=== PATIENT | female | born 1960 | race Caucasian/White ===

== ENCOUNTER 2021-10-06 11:03 | Day surgery (SDC) | payer OTHER ==
[2021-10-01 15:26] VITALS: BMI 50.5
[~2021-10-06 11:03] MED LIST: ALPRAZolam 0.25 MG TAB PO PRN; ALPRAZolam 0.5 MG TAB PO PRN; ASPIRIN 325 MG TAB PO ONE; ATORVASTATIN 80 MG TAB PO ONE; HEPARIN SODIUM,PORCINE 10,000 UNIT in SODIUM CHLORIDE 0.9% 1,000 ML IRRIGATION PRN; HEPARIN SODIUM,PORCINE 2,500 UNIT in SODIUM CHLORIDE 0.9% 250 ML IRRIGATION PRN; NITROGLYCERIN SL TABS 0.4 MG TAB SUBLINGUAL PRN; SODIUM CHLORIDE 0.9% 1,000 ML in EMPTY BAG 1 BAG IV SCH
[2021-10-06] MEDS ORDERED: SODIUM CHLORIDE 0.9% 1,000 ML IV ONE (11:22)
[2021-10-06] MEDS ORDERED: LIDOCAINE 1% INJ 10MG/ML (20 ML MDV) ONE (11:56)
[2021-10-06] MEDS ORDERED: VERAPAMIL 2.5 MG/ML 2 ML AMP ONE (11:56)
[2021-10-06 12:13] VITALS: TEMP 98.5
[2021-10-06] MEDS ORDERED: MIDAZOLAM 2 MG/2 ML VIAL IV ONE (12:13)
[2021-10-06] MEDS ORDERED: fentaNYL (PF) 50 MCG/ML 5 ML AMP IV ONE (12:13)
[2021-10-06] MEDS ORDERED: LIDOCAINE 1% INJ 10MG/ML (20 ML MDV) SQ ONE (12:15)
[2021-10-06] MEDS ORDERED: VERAPAMIL SYRINGE (5 MG/10 ML) INTRAARTER ONE (12:16)
[2021-10-06] MEDS ORDERED: HEPARIN SODIUM 1,000 UN/ML (10ML VL) ONE (12:18)
[2021-10-06] MEDS ORDERED: HEPARIN SODIUM 1,000 UN/ML (10ML VL) IV ONE (12:20)
[2021-10-06] MEDS ORDERED: IOPAMIDOL-370 125ML BTL INJ ONE (12:32)
--- NOTE | 2021-10-06 12:39 | P.CARDCATH ---
Description of Procedure: PROCEDURES PERFORMED: Left heart catheterization, bilateral coronary angiography INDICATION: Mild cardiomyopathy, abnormal stress test HISTORY: Patient is a pleasant 60-year-old female with a history of hypertension, hyperlipidemia, strong family history of coronary artery disease, persistent atrial fibrillation who was having significant dyspnea. This however improved after stopping smoking and starting to use of CPAP. She did have workup with a Lexiscan stress test where there was a soft attenuation artifact of the anterior wall as well as inferior basilar wall concerning for breast and diaphragmatic attenuation artifact however did have decrease in ejection fraction to 45%. Given decrease in EF as well as 6 perfusion defects and strong family history with risk factors a heart catheterization was recommended that she was still having significant dyspnea on exertion. CONSENT:I have discussed the risks, benefits and alternative therapies for the above-mentioned procedure and for both sedation/analgesia as well as necessary blood product administration, if indicated, as they pertain to this patient. The patient has indicated understanding and acceptance of the risks and procedures discussed. PROCEDURE: After the risks, benefits and alternatives of the above mentioned procedure explained in detail with the patient, informed consent was obtained. Patient was taken to the catheterization lab and prepped and draped in usual fashion. 1% lidocaine was used to anesthetize the right radial artery. A 6-Chinese sheath was placed in the right radial artery using modified Seldinger technique. Left coronary angiography was performed with a 5-Chinese JL 3.5 catheter and right coronary angiography was performed with a 5-Chinese JR5 catheter in various views. A 5-Chinese FR5 catheter was inserted into the left ventricle and pressure measurements were obtained. The right radial sheath was removed and a TR band was placed with hemostasis achieved. The patient tolerated the procedure well. Patient was transported back to the post catheterization holding area in stable condition. Conscious Sedation: Patient was monitored under the direct supervision of vision of myself for conscious sedation using Versed and fentanyl for a total duration of 18 minutes HEMODYNAMICS: Aorta: 126/79 LV: 115/15, LVEDP 22 mmHg SELECTIVE CORONARY ARTERIOGRAPHY: LEFT MAIN: The left main is a large caliber vessel which bifurcates into the LAD and circumflex. There is no significant stenosis. LEFT ANTERIOR DESCENDING CORONARY ARTERY: LAD is a large caliber vessel which wraps around to the apex. There are mild luminal irregularities with up to 10- 20% stenosis. LEFT CIRCUMFLEX CORONARY ARTERY: Left circumflex is a large caliber vessel with mild luminal irregularities and a more focal mid circumflex 50% stenosis. RIGHT CORONARY ARTERY: The right coronary artery is a large caliber vessel which gives off a PDA and PLV branch and is the dominant vessel. There are mild luminal irregularities. FINAL IMPRESSION: 1. CAD as described above with mild luminal irregularities and a more focal 50% mid circumflex stenosis 2. Elevated left sided filling pressures 3. Mild tachycardia noted throughout procedure PLAN: 1. Aggressive risk factor modification per most recent ACC/AHA guidelines. 2. Patient does have a 50% circumflex stenosis however does not appear to be hemodynamically significant and stress test normal in this area. Recommend continuing to treat this medically. She is having significant dyspnea and elevated LVEDP and therefore we will increase her diuretics to twice a day and have her follow-up in office within one week.
[2021-10-06 18:49] VITALS: RESP 16
[2021-10-06 18:57] VITALS: BP 135/69; PULSE 98
== END 2021-10-06 15:52 | disposition home or self-care (01) ==
LOC: CATHCVL 11:03
PROVIDERS: ATTEND Internal Medicine
DX: I25.10 Atherosclerotic heart disease of native coronary artery without angina pectoris (principal); I10 Essential (primary) hypertension; I48.19 Other persistent atrial fibrillation; E78.5 Hyperlipidemia, unspecified; R94.39 Abnormal result of other cardiovascular function study; Z82.49 Family history of ischemic heart disease and other diseases of the circulatory system; Z87.891 Personal history of nicotine dependence; Z79.01 Long term (current) use of anticoagulants; Z79.890 Hormone replacement therapy; Z79.52 Long term (current) use of systemic steroids; Z79.899 Other long term (current) drug therapy; Z88.5 Allergy status to narcotic agent; Z88.0 Allergy status to penicillin; Z88.2 Allergy status to sulfonamides
CPT/HCPCS: 93458; C1894; J2250; J2001; J3010; J1644; Q9967

== ENCOUNTER 2022-09-05 16:34 | Observation (INO) | payer OTHER ==
[2022-09-05] MEDS ORDERED: ONDANSETRON 4 MG/2 ML VIAL IVP STA (17:00)
[2022-09-05] MEDS ORDERED: HYDROcodone/APAP 5-325MG 1 EACH TAB PO STA (17:01)
--- NOTE | 2022-09-05 17:08 | ED ---
Chest Pain HPI - General Chief Complaint: Chest Pain Stated Complaint: Chest Pain Time Seen by Provider: 09/05/22 16:43 Source: patient, EMS Mode of arrival: EMS Limitations: no limitations - History of Present Illness Initial Comments: This patient is a 61-year-old woman who presents to have evaluation for substernal chest pain. The patient states she has been having weeks of intermittent pains. She states that they are knifelike. They have been moderate in intensity however tonight they were severe and that's what caused her to come emergency department. The pains radiate to the back sometimes. She states that today they have been associated with nausea. Today's pains of been present since she woke up intermittently. She states that they will last a variable. Time for minutes to hours. She states she does climb stairs in her home to get to her bedroom and does not note the pain getting worse with that. No dyspnea, diaphoresis, palpitations or syncope. No change in urination. Patient states she has had looser stools going back for weeks now. MD Complaint: chest pain -: week(s) Onset: during rest Pain Location: substernal Pain Radiation: back Severity: severe Quality: sharp Consistency: intermittent Improves With: nothing Worsens With: nothing Anginal Symptoms: nausea Treatments Prior to Arrival: none - Related Data Home Medications Medication Instructions Recorded Confirmed Apixaban [Eliquis] 5 mg PO BID 10/01/21 09/05/22 Atorvastatin [Lipitor] 20 mg PO HS 10/01/21 09/05/22 FLUoxetine HCL [PROzac] 40 mg PO DAILY 10/01/21 09/05/22 Levothyroxine Sodium [Synthroid] 137 mcg PO DAILY 10/01/21 09/05/22 Metoprolol Succinate (ER) [Toprol 200 mg PO DAILY 10/01/21 09/05/22 Xl] Omeprazole 20 mg PO DAILY 10/01/21 09/05/22 Spironolactone 25 mg PO DAILY 10/01/21 09/05/22 Albuterol Sulfate [Albuterol 2 puff PO RT-Q6H PRN 09/05/22 09/05/22 Sulfate Hfa] Furosemide [Lasix] 40 mg PO DAILY 09/05/22 09/05/22 Losartan Potassium [Cozaar] 100 mg PO DAILY 09/05/22 09/05/22 Potassium Citrate [Potassium 10 meq PO DAILY 09/05/22 09/05/22 Citrate ER] busPIRone HCl [Buspar] 10 mg PO BID 09/05/22 09/05/22 dilTIAZem HCL [dilTIAZem HCL 24Hr 360 mg PO DAILY 09/05/22 09/05/22 ER] Allergies Allergy/AdvReac Type Severity Reaction Status Date / Time morphine Allergy Anaphylaxis Verified 10/06/21 11:23 Penicillins Allergy Nausea & Verified 10/06/21 11:23 Vomiting Review of Systems ROS Statement: Those systems with pertinent positive or pertinent negative responses have been documented in the HPI. ROS Other: All systems not noted in ROS Statement are negative. Constitutional: Reports: weakness. Denies: fever, chills Respiratory: Denies: cough, dyspnea, wheezes Cardiovascular: Reports: chest pain. Denies: palpitations, orthopnea, edema, syncope Gastrointestinal: Reports: nausea, diarrhea. Denies: abdominal pain, vomiting, constipation, melena, hematochezia Genitourinary: Denies: dysuria, hematuria Musculoskeletal: Denies: back pain Skin: Denies: rash Neurological: Denies: headache, weakness, numbness EKG Findings - EKG Results: EKG: interpreted by ITZEL, normal axis EKG shows: atrial fibrillation (Rate approximate 40 bpm) - Blocks, [place], Hypertrophy, ST Abn: QRS axis and voltage: low voltage (<0.5 MV total QRS and <1.0 MV in each precordial lead) - RI, Pacemaker, Normal: Myocardial infarction: septal RI (old age or indeterminate) Past Medical History Past Medical History: Atrial Fibrillation, Cancer, COPD, GERD/Reflux, Hyperlipidemia, Hypertension, Sleep Apnea/CPAP/BIPAP, Thyroid Disorder Additional Past Medical History / Comment(s): O2 use 24hrs per day, 3L/NC during the day, 6L at night. Hx left breast cancer 4 yrs ago treated with Chemo/Radiation and partial Mastectomy. NO BLOOD PRESSURES/LAB DRAWS ON LEFT ARM. Hx kidney stones. Hx kidney failure after Hysterectomy, no problems since. History of Any Multi-Drug Resistant Organisms: None Reported Past Surgical History: Cholecystectomy, Hysterectomy Additional Past Surgical History / Comment(s): Left partial mastectomy and lymph nodes removed, D&C's, Radioactive Iodine Treatment for Thyroid. Past Anesthesia/Blood Transfusion Reactions: Postoperative Nausea & Vomiting (PONV) Past Psychological History: Anxiety, Depression Smoking Status: Former smoker Past Alcohol Use History: Rare Past Drug Use History: None Reported - Past Family History Mother Family Medical History: Cancer Father Family Medical History: Cancer Brother(s) Family Medical History: Cancer General Exam Limitations: no limitations General appearance: alert, in no apparent distress Head exam: Present: atraumatic, normocephalic Eye exam: Present: normal appearance. Absent: scleral icterus, conjunctival injection Neck exam: Present: normal inspection Respiratory exam: Present: wheezes (Trace expiratory wheeze). Absent: respiratory distress, rales, rhonchi, stridor, accessory muscle use, decreased breath sounds Cardiovascular Exam: Present: bradycardia, irregular rhythm, normal heart sounds. Absent: systolic murmur, diastolic murmur, rubs, gallop GI/Abdominal exam: Present: soft. Absent: distended, tenderness, guarding, rebound, rigid, mass Extremities exam: Present: normal inspection, normal capillary refill. Absent: pedal edema, calf tenderness Back exam: Present: normal inspection. Absent: CVA tenderness (R), CVA tenderness (L) Neurological exam: Present: alert Skin exam: Present: warm, dry, intact, normal color. Absent: rash Course Vital Signs 09/05/22 09/05/22 16:36 16:50 Temperature 97.5 F L Pulse Rate 44 L Pulse Rate [ 39 L Selling Specialist ] Respiratory 20 Rate Blood Pressure 108/63 O2 Sat by Pulse 100 Oximetry Disposition Clinical Impression: Anemia, Symptomatic bradycardia Disposition: ADMITTED IP TO THIS HOSP Condition: Fair Referrals: Pancho Berg DO [Primary Care Provider] - 1-2 days
[2022-09-05 17:30] LABS: Basophils % (A) 0 %; Eosinophils # (A) 0.1 k/uL (0-0.7); Eosinophils % (A) 0 %; HCT 26.7 % (34.0-46.0); HGB 7.4 gm/dL (11.4-16.0); Hypochromasia Marked; Lymphocytes # (A) 0.7 k/uL (1.0-4.8); Lymphocytes % (A) 5 %; MCH 25.4 pg (25.0-35.0); MCHC 27.7 g/dL (31.0-37.0); MCV 91.5 fL (80.0-100.0); Mean Platelet Volume 7.7; Monocytes # (A) 0.5 k/uL (0-1.0); Monocytes % (A) 4 %; Neutrophils # (A) 11.9 k/uL (1.3-7.7); Neutrophils % (A) 89 %; Platelet Count 561 k/uL (150-450); RBC 2.91 m/uL (3.80-5.40); RDW 15.6 % (11.5-15.5); WBC 13.3 k/uL (3.8-10.6)
[2022-09-05 17:42] LABS: Albumin 3.5 g/dL (3.5-5.0); Calcium 7.7 mg/dL (8.4-10.2); Potassium 4.3 mmol/L (3.5-5.1); Total Bilirubin 0.4 mg/dL (0.2-1.3); Total Protein 5.4 g/dL (6.3-8.2)
[2022-09-05 17:54] LABS: Partial Thromboplastin Time 22.3 sec (22.0-30.0); Prothrombin Time 10.8 sec (9.0-12.0)
--- NOTE | 2022-09-05 17:55 | XR ---
EXAMINATION TYPE: XR chest 2V DATE OF EXAM: 09/05/2022 COMPARISON: NONE HISTORY: Chest pain TECHNIQUE: Frontal and lateral views of the chest are obtained. FINDINGS: The heart is moderately to markedly enlarged. There is mild pulmonary vascular congestion. There is no airspace edema. There is no pleural effusion or pneumothorax. The osseous structures are intact. IMPRESSION: Findings most consistent with mild CHF. Clinical correlation and short-term follow-up to resolution i s recommended.
[2022-09-05] MEDS ORDERED: ALBUTEROL NEBULIZED 2.5 MG/3 ML INHALATION STA (18:22)
[2022-09-05] MEDS ORDERED: NALOXONE 0.4 MG/ML 1 ML VIAL IV PRN (18:24)
[2022-09-05] MEDS: NITROGLYCERIN OINT 1 INCH/GM PACKET TOPICAL SCH (20:14)
[2022-09-05] MEDS: ATORVASTATIN 20 MG TAB PO SCH (20:14)
[2022-09-05] MEDS: APIXABAN 5 MG TAB PO SCH (20:15)
[2022-09-05] MEDS: FAMOTIDINE 20 MG TAB PO SCH (20:15)
[2022-09-05] MEDS: busPIRone HCl 10 MG TAB PO SCH (20:15)
[2022-09-05 21:15] LABS: Amorphous Sediment,Urine Occasional /hpf; Appearance,Urine Cloudy (Clear); Bilirubin,Urine 1+ (Negative); Blood,Urine Negative (Negative); Color,Urine Yellow; Glucose,Urine (UA) Negative (Negative); Hyaline Casts,Urine 239 /lpf (0-2); Ketones,Urine Trace (Negative); Leukocyte Esterase,Urine Negative (Negative); Mucus,Urine Few /hpf; Nitrite,Urine Negative (Negative); PH, Urine 5.5 (5.0-8.0); Protein,Urine 2+ (Negative); RBC,Urine 2 /hpf (0-5); Specific Gravity,Urine 1.033 (1.001-1.035); Squamous Epithelial Cell,Urine 6 /hpf (0-4); WBC,Urine 4 /hpf (0-5)
[2022-09-05] MEDS: ALBUTEROL NEBULIZED 2.5 MG/3 ML INHALATION PRN (21:32)
[2022-09-05] MEDS: ACETAMINOPHEN TAB 325 MG TAB PO PRN (22:24)
[2022-09-06] MEDS: LEVOTHYROXINE 137 MCG TAB PO SCH (07:03)
[2022-09-06] MEDS: NITROGLYCERIN OINT 1 INCH/GM PACKET TOPICAL SCH (07:03)
[2022-09-06] MEDS: LOSARTAN 50 MG TAB PO SCH (08:11)
[2022-09-06] MEDS: FLUoxetine HCL 20 MG CAP PO SCH (08:11)
[2022-09-06] MEDS: APIXABAN 5 MG TAB PO SCH (08:11)
[2022-09-06] MEDS: SPIRONOLACTONE 25 MG TAB PO SCH (08:11)
[2022-09-06] MEDS: PANTOPRAZOLE 40 MG TABLET PO SCH (08:12)
[2022-09-06] MEDS: POTASSIUM CITRATE 10 MEQ TABLET.ER PO SCH (08:12)
[2022-09-06] MEDS: FAMOTIDINE 20 MG TAB PO SCH ×2 (08:12→20:47)
[2022-09-06] MEDS: FUROSEMIDE 40 MG TAB PO SCH (08:12)
[2022-09-06] MEDS: busPIRone HCl 10 MG TAB PO SCH ×2 (08:12→20:46)
[2022-09-06] MEDS ORDERED: ALPRAZolam 0.25 MG TAB PO PRN (09:11)
[2022-09-06] MEDS ORDERED: NITROGLYCERIN SL TABS 0.4 MG TAB SUBLINGUAL PRN (09:11)
[2022-09-06] MEDS ORDERED: ASPIRIN 325 MG TAB PO STA (09:11)
[2022-09-06] MEDS ORDERED: HEPARIN SODIUM 1,000 UN/ML (10ML VL) IV PRN (09:12)
[2022-09-06] MEDS: HEPARIN SOD,PORK IN 0.45% NACL 25,000 UNIT in 0.45% NACL 1 250ML.BAG IV SCH (09:51)
[2022-09-06] MEDS: ALBUTEROL NEBULIZED 2.5 MG/3 ML INHALATION PRN (11:22)
--- NOTE | 2022-09-06 12:06 | P.CRDCN ---
History of Present Illness History of present illness: HISTORY OF PRESENTING ILLNESS This is a pleasant 61-year-old female past medical history significant for mild to moderate coronary artery disease, COPD, congestive heart failure, nonischemic cardiomyopathy, persistent atrial fibrillation, sick sinus syndrome, hypertension, dyslipidemia, former smoker, obstructive sleep apnea, hypothyroidism. She follows in the office with Dr. Sharp. We have been asked to see in consultation for bradycardia. She presents to the ER with multiple complaints. She has been having nausea, diarrhea, not feeling well, and dizziness. Yesterday she was going to the bathroom having a bowel movement and had an episode where she thinks she briefly passed out. She checked her pulse ox at home and noticed her HR being 180s and then down to the 40s. She has been noticing her heart rate fluctuating over the past few weeks. She noticed increased dizziness yesterday. Over the past 1-2 weeks, she has noticed chest pain, especially when going up the stairs or exerting her self. She has radiation to her bilateral arms. It comes and goes. She does notice it more when doing activity, but has had it when lying and sittin gas well. She did have some discomfort last night as well. She has associated shortness of breath, nausea and diaphoresis with the chest discomfort. Currently she is chest pain free. She has no history of KS, stroke, or diabetes. She recently quit smoking cigarettes, does use marijuana occasionally. Denies alcohol use In February 2022, she followed up with Dr. Sharp, her digoxin was discontinued and Toprol XL dose adjusted. She underwent a Holter monitor 07/2022 revealed atrial fibrillation with heart rates ranging from 48-114 beats per minutes, average heart rate is 77 beats per minutes. DIAGNOSTICS * EKG reveals atrial fibrillation with slow ventricular response, heart rate 40 * Cardiac catheterization 09/2021 revealed LAD 1020 percent stenosis, mid circumflex 50% stenosis * Echocardiogram 12/2021 at [facility] revealed EF 4550 percent, moderate diffuse atheromatous plaque * Holter monitor 07/2022 revealed atrial fibrillation with heart rates ranging from 48-114 beats per minutes, average heart rate is 77 beats per minutes. * Telemetry tracings indicate atrial fibrillation with heart rates in the 50s70s * Chest xray moderate to marked enlarged heart, mild pulmonary asked her congestion. * Laboratory reviewed, CBC 13.3, hemoglobin 7.4, platelets 561, sodium 142, potassium 4.3, BUN 21, serum creatinine 0.9, troponin negative 3, proBNP 1540 * Current home cardiac medications include spironolactone 25 mg daily, potassium citrate, atorvastatin 20 mg nightly, metoprolol succinate 20 mg daily, losartan 20 mg daily, Synthroid, Lasix 40 mg daily, Cardizem 360 mg daily, Eliquis 5 mg twice a day. REVIEW OF SYSTEMS At the time of my exam: CONSTITUTIONAL: Denies fever or chills. +dizziness CARDIOVASCULAR: + chest pain, +shortness of breath, Denies orthopnea, PND or palpitations. RESPIRATORY: Denies cough. GASTROINTESTINAL: Denies abdominal pain,+ diarrhea, Denies constipation, nausea or vomiting. MUSCULOSKELETAL: Denies myalgias. NEUROLOGIC: Denies numbness, tingling, headache or weakness. ENDOCRINE: Denies fatigue, weight change, polydipsia or polyurina. GENITOURINARY: Denies burning, hematuria or urgency with micturation. HEMATOLOGIC: Denies history of anemia or bleeding. PHYSICAL EXAMINATION Blood pressure 143/81, HR 66, afebrile, oxygen saturation 99% on 3 L nasal cannula CONSTITUTIONAL: No apparent distress. HEENT: Head is normocephalic. Pupils are equal, round. Sclerae anicteric. Mucous membranes of the mouth are moist. No JVD. No carotid bruit. CHEST EXAMINATION: Lungs are clear to auscultation. No chest wall tenderness is noted on palpation or with deep breathing. HEART EXAMINATION: Irregular rate and rhythm. S1, S2 heard. No murmurs, gallops or rub. ABDOMEN: Soft, nontender. Positive bowel sounds. EXTREMITIES: 2+ peripheral pulses, no lower extremity edema and no calf tenderness. NEUROLOGIC EXAMINATION: Patient is awake, alert and oriented x3. ASSESSMENT Chest discomfort, with exertion, rule out unstable angina Dizziness Possible syncopal episode per patient while having a bowel movement Nausea and diarrhea Persistent atrial fibrillation, on Eliquis outpatient, slow ventricular response, rule out tachy-katharina syndrome COPD Leukocytosis Anemia Chronic heart failure with preserved ejection fraction History of nonischemic cardiomyopathy History of hypertension Dyslipidemia Former smoker Obstructive sleep apnea Hypothyroidism PLAN Plan for cardiac catheterization tomorrow with Dr. Mejias, patient is agreeable Hold Eliquis, start IV heparin drip Hold Metoprolol and Cardizem Monitor renal function, electrolytes and hemoglobin Monitor on Telemetry Obtain 2D echocardiogram and doppler study to assess cardiac structure and function. Continue home medications statin, lasix, losartan, aldactone at this time NPO after midnight Further recommendations based on clinical course Discussed with Dr Sharp regarding possible attempt at rhythm control and cardioversion however patient states she had 3 failed cardioversions and does not desire to try this again at this time. Nurse practitioner note has been reviewed by physician. Signing provider agrees with the documented findings, assessment, and plan of care. Past Medical History Past Medical History: Atrial Fibrillation, Cancer, COPD, GERD/Reflux, Hyperlipidemia, Hypertension, Sleep Apnea/CPAP/BIPAP, Thyroid Disorder Additional Past Medical History / Comment(s): O2 use 24hrs per day, 3L/NC during the day, 6L at night. Hx left breast cancer 4 yrs ago treated with Chemo/Radiation and partial Mastectomy. NO BLOOD PRESSURES/LAB DRAWS ON LEFT ARM. Hx kidney stones. Hx kidney failure after Hysterectomy, no problems since. History of Any Multi-Drug Resistant Organisms: None Reported Past Surgical History: Cholecystectomy, Hysterectomy Additional Past Surgical History / Comment(s): Left partial mastectomy and lymph nodes removed, D&C's, Radioactive Iodine Treatment for Thyroid. Past Anesthesia/Blood Transfusion Reactions: Postoperative Nausea & Vomiting (PONV) Past Psychological History: Anxiety, Depression Additional Psychological History / Comment(s): Panic attacks. Smoking Status: Former smoker Past Alcohol Use History: Rare Additional Past Alcohol Use History / Comment(s): Quit smoking 3 weeks ago, smoked for 40 yrs, 1-09/01 ppd. Past Drug Use History: None Reported Additional Drug Use History / Comment(s): Uses Marijuana edibles. Aware no use 24 hrs prior to procedure. - Past Family History Mother Family Medical History: Cancer Father Family Medical History: Cancer Brother(s) Family Medical History: Cancer Medications and Allergies Home Medications Medication Instructions Recorded Confirmed Type Apixaban [Eliquis] 5 mg PO BID 10/01/21 09/05/22 History Atorvastatin [Lipitor] 20 mg PO HS 10/01/21 09/05/22 History FLUoxetine HCL [PROzac] 40 mg PO DAILY 10/01/21 09/05/22 History Levothyroxine Sodium [Synthroid] 137 mcg PO DAILY 10/01/21 09/05/22 History Metoprolol Succinate (ER) [Toprol 200 mg PO DAILY 10/01/21 09/05/22 History Xl] Omeprazole 20 mg PO DAILY 10/01/21 09/05/22 History Spironolactone 25 mg PO DAILY 10/01/21 09/05/22 History Albuterol Sulfate [Albuterol 2 puff PO RT-Q6H PRN 09/05/22 09/05/22 History Sulfate Hfa] Furosemide [Lasix] 40 mg PO DAILY 09/05/22 09/05/22 History Losartan Potassium [Cozaar] 100 mg PO DAILY 09/05/22 09/05/22 History Potassium Citrate [Potassium 10 meq PO DAILY 09/05/22 09/05/22 History Citrate ER] busPIRone HCl [Buspar] 10 mg PO BID 09/05/22 09/05/22 History dilTIAZem HCL [dilTIAZem HCL 24Hr 360 mg PO DAILY 09/05/22 09/05/22 History ER] Allergies Allergy/AdvReac Type Severity Reaction Status Date / Time morphine Allergy Anaphylaxis Verified 10/06/21 11:23 Penicillins Allergy Nausea & Verified 10/06/21 11:23 Vomiting Physical Exam Vitals: Vital Signs Temp Pulse Pulse Resp BP BP Pulse Ox 09/06/22 04:34 97.9 F 67 20 120/81 100 09/06/22 02:17 53 L 09/06/22 01:00 98.0 F 87 22 125/98 99 09/05/22 22:52 53 L 09/05/22 21:47 97.7 F 53 L 18 103/54 97 09/05/22 21:43 50 L 09/05/22 21:33 48 L 09/05/22 18:51 97.7 F 53 L 18 103/54 97 09/05/22 16:50 39 L 09/05/22 16:36 97.5 F L 44 L 20 108/63 100 Intake and Output 09/05/22 09/06/22 09/06/22 22:59 06:59 14:59 Intake Total 765 Balance 765 Intake: Intake, IV Titration 225 Amount Sodium Chloride 0.9% 1, 225 000 ml @ 75 mls/hr IV . [id number] [facility] Rx#:[id number] Oral 540 Other: Voiding Method Toilet Toilet # Voids 2 Weight 145.15 kg Results 09/06/22 15:03 09/05/22 17:03 Cardiac Enzymes 09/05/22 09/05/22 09/05/22 Range/Units 17:03 17:03 20:31 AST 32 (14-36) U/L Troponin I <0.012 <0.012 (0.000-0.034) ng/mL 09/05/22 Range/Units 23:23 AST (14-36) U/L Troponin I <0.012 (0.000-0.034) ng/mL Coagulation 09/05/22 Range/Units 17:03 PT 10.8 (9.0-12.0) sec APTT 22.3 (22.0-30.0) sec CBC 09/05/22 Range/Units 17:03 WBC 13.3 H (3.8-10.6) k/uL RBC 2.91 L (3.80-5.40) m/uL Hgb 7.4 L (11.4-16.0) gm/dL Hct 26.7 L (34.0-46.0) % Plt Count 561 H (150-450) k/uL Comprehensive Metabolic Panel 09/05/22 Range/Units 17:03 Sodium 142 (137-145) mmol/L Potassium 4.3 (3.5-5.1) mmol/L Chloride 110 H (98-107) mmol/L Carbon Dioxide 24 (22-30) mmol/L BUN 21 H (7-17) mg/dL Creatinine 0.98 (0.52-1.04) mg/dL Glucose 142 H (74-99) mg/dL Calcium 7.7 L (8.4-10.2) mg/dL AST 32 (14-36) U/L ALT 25 (4-34) U/L Alkaline Phosphatase 90 (38-126) U/L Total Protein 5.4 L (6.3-8.2) g/dL Albumin 3.5 (3.5-5.0) g/dL Current Medications Generic Name Dose Route Start Last Admin Trade Name Freq PRN Reason Stop Dose Admin Acetaminophen 650 mg 09/05/22 18:24 09/05/22 22:24 Acetaminophen Tab 325 Mg Tab PO 650 mg Q6HR PRN Administration Mild Pain or Fever > 100.5 Albuterol Sulfate 2.5 mg 09/05/22 18:27 09/05/22 21:32 Albuterol Nebulized 2.5 Mg/3 Ml INHALATION 2.5 mg RT-Q6H PRN Administration Shortness Of Breath Apixaban 5 mg 09/05/22 21:00 09/05/22 20:15 Apixaban 5 Mg Tab PO 5 mg BID [facility] Administration Protocol Atorvastatin Calcium 20 mg 09/05/22 21:00 09/05/22 20:14 Atorvastatin 20 Mg Tab PO 20 mg HS [facility] Administration Buspirone HCl 10 mg 09/05/22 21:00 09/05/22 20:15 Buspirone Hcl 10 Mg Tab PO 10 mg BID [facility] Administration Famotidine 20 mg 09/05/22 21:00 09/05/22 20:15 Famotidine 20 Mg Tab PO 20 mg BID [facility] Administration Fluoxetine HCl 40 mg 09/06/22 09:00 Fluoxetine Hcl 20 Mg Cap PO DAILY [facility] Furosemide 40 mg 09/06/22 09:00 Furosemide 40 Mg Tab PO DAILY [facility] Sodium Chloride 1,000 mls @ 75 mls/hr 09/05/22 18:30 Saline 0.9% IV .[id number] [facility] Levothyroxine Sodium 137 mcg 09/06/22 07:30 09/06/22 07:03 Levothyroxine 137 Mcg Tab PO 137 mcg DAILY@0730 [facility] Administration Losartan Potassium 100 mg 09/06/22 09:00 Losartan 50 Mg Tab PO DAILY [facility] Naloxone HCl 0.2 mg 09/05/22 18:24 Naloxone 0.4 Mg/Ml 1 Ml Vial IV Q2M PRN Opioid Reversal Nitroglycerin 1 inch 09/05/22 20:00 09/06/22 07:03 Nitroglycerin Oint 1 Inch/Gm Packet TOPICAL Not Given Q8H [facility] Pantoprazole Sodium 40 mg 09/06/22 09:00 Pantoprazole 40 Mg Tablet PO DAILY [facility] Potassium Citrate 10 meq 09/06/22 09:00 Potassium Citrate 10 Meq Tablet.Er PO DAILY [facility] Spironolactone 25 mg 09/06/22 09:00 Spironolactone 25 Mg Tab PO DAILY [facility] Intake and Output 09/05/22 09/06/22 09/06/22 22:59 06:59 14:59 Intake Total 765 Balance 765 Intake: Intake, IV Titration 225 Amount Sodium Chloride 0.9% 1, 225 000 ml @ 75 mls/hr IV . [id number] [facility] Rx#:[id number] Oral 540 Other: Voiding Method Toilet Toilet # Voids 2 Weight 145.15 kg 09/05/22 17:03 09/05/22 17:03
--- NOTE | 2022-09-06 13:57 | P.HPIM ---
History of Present Illness H&P Date: 09/06/22 Chief Complaint: Past out This is a pleasant 61-year-old patient follows Dr. Berg. Chronic stable medical conditions include atrial fibrillation, COPD, GERD, hyperlipidemia, hypertension, obstructive sleep apnea uses CPAP, hypothyroid, uses 3 L of oxygen during the daytime and 6 L at night, had breast cancer 4 years ago treated with chemoradiation and partial mastectomy, kidney stones, anxiety depression. Patient been a long-standing smoker and quit about 9 months ago started back a few cigarettes a day recently. Patient presents with episodes of heart rate going anywhere from 180s down to 40s. Yesterday when she was sitting on the toilet become very diaphoretic and then passed out not sure for how long. Was leaning against the wall. Has been feeling weak for 3-4 weeks. No fever no chills. Short of breath. Some wheezing. Review of systems: GEN.: Tired EYES: None HEENT: None NECK: None RESPIRATORY: As above CARDIOVASCULAR: As above GASTROINTESTINAL: None GENITOURINARY: None MUSCULOSKELETAL: None LYMPHATICS: None HEMATOLOGICAL: None PSYCHIATRY: Anxious NEUROLOGICAL: None Past medical history to include: Atrial fibrillation, COPD, GERD, hyperlipidemia, hypertension, after sleep apnea uses CPAP, hypothyroid, oxygen 3 history the daytime is 6 L at night, breast cancer 4 years ago with treated with chemoradiation and partial mastectomy, kidn ey stones, anxiety depression Social history: Patient smoked for about 40 years back and a half a day average, he stopped 9 months ago not back to few cigarettes a day. Was using marijuana and abuse up in about a month ago for a pain started feeling weird, then discontinued. Physical examination: VITAL SIGNS: 97.5, 44, 20, 100 x 63, 100% on 3 L upon presentation] GENERAL: BMI 51.6, sitting up in bed awake, short of breath. EYES: Pupils equal. Conjunctiva normal. HEENT: External appearance of nose and ears normal, oral cavity grossly normal. NECK: JVD not raised; masses not palpable. HEART: First and second heart sounds are normal; no edema. LUNGS: Respiratory rate increased, diminished breath sounds of increasing. ABDOMEN: Soft, nontender, liver spleen not palpable, no masses palpable. PSYCH: Alert and oriented x3; mood and affect normal. MUSCULOSKELETAL:No Clubbing/cyanosis;muscles-grossly intact NEUROLOGICAL: Cranial nerves grossly intact; no facial asymmetry, power and sensation grossly intact. LYMPHATICS: No lymph nodes palpable in the axilla and neck INVESTIGATIONS, reviewed in the clinical context: White count 13.3 lm 7.4 platelets 561 sodium 142 progression 4.3. 21 crit 0.98 Troponin I 3 negative ProBNP 1540 Stool occult blood negative EKG tracing personally reviewed by me-atrial fibrillation, rate 40, low volume Chest x-ray film personally reviewed by me: Cardiomegaly, possible venous prominence Assessment and plan: -Possible Acute congestive heart failure exacerbation, rule out underlying CAD Lasix. Cardiology consult - atrial fibrillation with a very variable heart rate. Heart rate is been up to 140s down to 40s. Resulting in syncope. Telemetry. Hold Toprol-XL and Cardizem. Patient may need pacemaker -Acute COPD exacerbation in a current smoker DuoNeb, nebulized Pulmicort -Nicotine dependence, smoker Nicotine patch -Morbid obesity, BMI 51.6 Consult dietitian -Essential hypertension Currently Toprol and Cardizem air. Follow blood pressure closely. On Cozaar -IV heparin monitoring, follow PTT -Depression Prozac, BuSpar -Hypothyroid Synthroid -GERD PPI IV heparin. DC Toprol-XL and Cardizem. Resume home medications. Consult dietitian. Telemetry. Consult currently. Nothing by mouth after midnight for cardiac catheterization, 2-D echo, nicotine patch, DuoNeb, nebulized Pulmicort care was discussed with the patient. Questions answered. Smoke cessation counseling: This was done with the patient. Nicotine patch is being given. More than 3 minutes was spent for this Past Medical History Past Medical History: Atrial Fibrillation, Cancer, COPD, GERD/Reflux, Hyperli pidemia, Hypertension, Sleep Apnea/CPAP/BIPAP, Thyroid Disorder Additional Past Medical History / Comment(s): O2 use 24hrs per day, 3L/NC during the day, 6L at night. Hx left breast cancer 4 yrs ago treated with Chemo/Radiation and partial Mastectomy. NO BLOOD PRESSURES/LAB DRAWS ON LEFT ARM. Hx kidney stones. Hx kidney failure after Hysterectomy, no problems since. History of Any Multi-Drug Resistant Organisms: None Reported Past Surgical History: Cholecystectomy, Hysterectomy Additional Past Surgical History / Comment(s): Left partial mastectomy and lymph nodes removed, D&C's, Radioactive Iodine Treatment for Thyroid. Past Anesthesia/Blood Transfusion Reactions: Postoperative Nausea & Vomiting (PONV) Past Psychological History: Anxiety, Depression Additional Psychological History / Comment(s): Panic attacks. Smoking Status: Former smoker Past Alcohol Use History: Rare Additional Past Alcohol Use History / Comment(s): Quit smoking 3 weeks ago, smoked for 40 yrs, 1-09/01 ppd. Past Drug Use History: None Reported Additional Drug Use History / Comment(s): Uses Marijuana edibles. Aware no use 24 hrs prior to procedure. - Past Family History Mother Family Medical History: Cancer Father Family Medical History: Cancer Brother(s) Family Medical History: Cancer Medications and Allergies Home Medications Medication Instructions Recorded Confirmed Type Apixaban [Eliquis] 5 mg PO BID 10/01/21 09/05/22 History Atorvastatin [Lipitor] 20 mg PO HS 10/01/21 09/05/22 History FLUoxetine HCL [PROzac] 40 mg PO DAILY 10/01/21 09/05/22 History Levothyroxine Sodium [Synthroid] 137 mcg PO DAILY 10/01/21 09/05/22 History Metoprolol Succinate (ER) [Toprol 200 mg PO DAILY 10/01/21 09/05/22 History Xl] Omeprazole 20 mg PO DAILY 10/01/21 09/05/22 History Spironolactone 25 mg PO DAILY 10/01/21 09/05/22 History Albuterol Sulfate [Albuterol 2 puff PO RT-Q6H PRN 09/05/22 09/05/22 History Sulfate Hfa] Furosemide [Lasix] 40 mg PO DAILY 09/05/22 09/05/22 History Losartan Potassium [Cozaar] 100 mg PO DAILY 09/05/22 09/05/22 History Potassium Citrate [Potassium 10 meq PO DAILY 09/05/22 09/05/22 History Citrate ER] busPIRone HCl [Buspar] 10 mg PO BID 09/05/22 09/05/22 History dilTIAZem HCL [dilTIAZem HCL 24Hr 360 mg PO DAILY 09/05/22 09/05/22 History ER] Allergies Allergy/AdvReac Type Severity Reaction Status Date / Time morphine Allergy Anaphylaxis Verified 10/06/21 11:23 Penicillins Allergy Nausea & Verified 10/06/21 11:23 Vomiting Physical Exam Vitals: Vital Signs Temp Pulse Pulse Resp BP BP Pulse Ox 09/06/22 08:10 97.1 F L 66 20 143/81 99 09/06/22 04:34 97.9 F 67 20 120/81 100 09/06/22 02:17 53 L 09/06/22 01:00 98.0 F 87 22 125/98 99 09/05/22 22:52 53 L 09/05/22 21:47 97.7 F 53 L 18 103/54 97 09/05/22 21:43 50 L 09/05/22 21:33 48 L 09/05/22 18:51 97.7 F 53 L 18 103/54 97 09/05/22 16:50 39 L 09/05/22 16:36 97.5 F L 44 L 20 108/63 100 Intake and Output 09/05/22 09/06/22 09/06/22 22:59 06:59 14:59 Intake Total 765 0 Output Total 1350 Balance 765 -1350 Intake: Intake, IV Titration 225 Amount Sodium Chloride 0.9% 1, 225 000 ml @ 75 mls/hr IV . [id number] [facility] Rx#:[id number] Oral 540 0 Output: Urine 1350 Other: Voiding Method Toilet Toilet Toilet # Voids 2 Weight 145.15 kg Results CBC & Chem 7: 09/05/22 17:03 09/05/22 17:03 Labs: Abnormal Lab Results - Last 24 Hours (Table) 09/05/22 09/05/22 09/05/22 Range/Units 17:03 17:03 20:28 WBC 13.3 H (3.8-10.6) k/uL RBC 2.91 L (3.80-5.40) m/uL Hgb 7.4 L (11.4-16.0) gm/dL Hct 26.7 L (34.0-46.0) % MCHC 27.7 L (31.0-37.0) g/dL RDW 15.6 H (11.5-15.5) % Plt Count 561 H (150-450) k/uL Neutrophils # 11.9 H (1.3-7.7) k/uL Lymphocytes # 0.7 L (1.0-4.8) k/uL Chloride 110 H (98-107) mmol/L BUN 21 H (7-17) mg/dL Glucose 142 H (74-99) mg/dL Calcium 7.7 L (8.4-10.2) mg/dL Total Protein 5.4 L (6.3-8.2) g/dL Urine Appearance Cloudy H (Clear) Urine Protein 2+ H (Negative) Urine Ketones Trace H (Negative) Urine Bilirubin 1+ H (Negative) Ur Squamous Epith Cells 6 H (0-4) /hpf Amorphous Sediment Occasional H (None) /hpf Hyaline Casts 239 H (0-2) /lpf Urine Mucus Few H (None) /hpf Thrombosis Risk Factor Assmnt - Choose All That Apply Any of the Below Risk Factors Present?: Yes Each Factor Represents 1 point: Abnormal pulmonary function (COPD), Hx of IBD, Obesity (BMI >25), Serious lung disease incl. pneumonia (< 1month), Swollen legs (current) Other Risk Factors: Yes Each Risk Factor Represents 2 Points: Age 61-74 years Other congenital or acquired thrombophilia - If yes, enter type in comment: No Thrombosis Risk Factor Assessment Total Risk Factor Score: 7 Thrombosis Risk Factor Assessment Level: High Risk
[2022-09-06 15:17] LABS: Basophils % (A) 0 %; Eosinophils # (A) 0.1 k/uL (0-0.7); Eosinophils % (A) 1 %; HCT 27.2 % (34.0-46.0); HGB 7.6 gm/dL (11.4-16.0); Hypochromasia Marked; Lymphocytes # (A) 1.3 k/uL (1.0-4.8); Lymphocytes % (A) 12 %; MCH 25.5 pg (25.0-35.0); MCHC 27.8 g/dL (31.0-37.0); MCV 91.5 fL (80.0-100.0); Mean Platelet Volume 7.6; Monocytes # (A) 0.6 k/uL (0-1.0); Monocytes % (A) 6 %; Neutrophils # (A) 8.2 k/uL (1.3-7.7); Neutrophils % (A) 78 %; Platelet Count 434 k/uL (150-450); RBC 2.97 m/uL (3.80-5.40); RDW 15.4 % (11.5-15.5); WBC 10.6 k/uL (3.8-10.6)
[2022-09-06] MEDS: BUDESONIDE 1 MG/2 ML NEBU INHALATION SCH ×2 (15:45→20:15)
[2022-09-06] MEDS: ACETAMINOPHEN TAB 325 MG TAB PO PRN (16:06)
[2022-09-06] MEDS: NICOTINE 14MG/24HR PATCH TRANSDERM SCH (16:21)
[2022-09-06] MEDS: IPRATROPIUM-ALBUTEROL 3 ML NEB INHALATION SCH (20:15)
[2022-09-06] MEDS: ATORVASTATIN 20 MG TAB PO SCH (20:46)
[2022-09-06] MEDS: SODIUM CHLORIDE 0.9% 1,000 ML IV SCH ×2 (20:46→20:48)
[2022-09-06] MEDS: ALPRAZolam 0.5 MG TAB PO PRN (20:47)
[2022-09-07] MEDS: HEPARIN SOD,PORK IN 0.45% NACL 25,000 UNIT in 0.45% NACL 1 250ML.BAG IV SCH (04:40)
[2022-09-07] MEDS: SODIUM CHLORIDE 0.9% 1,000 ML IV SCH ×3 (04:43→23:29)
[2022-09-07] MEDS: LEVOTHYROXINE 137 MCG TAB PO SCH (06:51)
[2022-09-07] MEDS ORDERED: HEPARIN SODIUM,PORCINE 2,500 UNIT in SODIUM CHLORIDE 0.9% 250 ML IRRIGATION PRN (07:00)
[2022-09-07] MEDS ORDERED: HEPARIN SODIUM,PORCINE 10,000 UNIT in SODIUM CHLORIDE 0.9% 1,000 ML IRRIGATION PRN (07:00)
[2022-09-07] MEDS ORDERED: ASPIRIN 325 MG TAB PO STA (07:35)
[2022-09-07] MEDS: BUDESONIDE 1 MG/2 ML NEBU INHALATION SCH ×2 (07:40→20:06)
[2022-09-07] MEDS: IPRATROPIUM-ALBUTEROL 3 ML NEB INHALATION SCH ×3 (07:40→20:06)
[2022-09-07] MEDS: MIDAZOLAM 2 MG/2 ML VIAL IV ONE ×2 (08:07→08:11)
[2022-09-07] MEDS: fentaNYL (PF) 50 MCG/ML 2 ML AMP IV ONE ×2 (08:07→08:19)
[2022-09-07] MEDS ORDERED: IV FLUID CONTINUATION 200 ML IV ONE (08:08)
[2022-09-07] MEDS ORDERED: LIDOCAINE 1% INJ 10MG/ML (30 ML VIAL-PF) SQ ONE (08:11)
[2022-09-07] MEDS ORDERED: VERAPAMIL SYRINGE (5 MG/10 ML) INTRAARTER ONE (08:12)
[2022-09-07] MEDS ORDERED: MIDAZOLAM 2 MG/2 ML VIAL IV ONE (08:18)
[2022-09-07] MEDS: HEPARIN SODIUM 1,000 UN/ML (10ML VL) IV ONE ×2 (08:19→08:26)
[2022-09-07] MEDS ORDERED: NITROGLYCERIN 1000MCG/10ML SYRINGE INTRACORON ONE (08:32)
[2022-09-07] MEDS ORDERED: IOPAMIDOL-370 100ML BTL INJ ONE (08:33)
--- NOTE | 2022-09-07 08:41 | P.CARDCATH ---
Description of Procedure: PROCEDURES PERFORMED: Bilateral coronary angiography INDICATION: CAD, symptomatic bradycardia HISTORY: Patient is pleasant 61-year-old female with history of mild to moderate CAD including a 50% circumflex lesion and atrial fibrillation who presented with A. fib with heart rates in the 40s after medication adjustments. Concern of possible underlying CAD affecting heart rates and therefore heart catheterization was recommended. CONSENT:I have discussed the risks, benefits and alternative therapies for the above-mentioned procedure and for both sedation/analgesia as well as necessary blood product administration, if indicated, as they pertain to this patient. The patient has indicated understanding and acceptance of the risks and procedures discussed. PROCEDURE: After the risks, benefits and alternatives of the above mentioned procedure explained in detail with the patient, informed consent was obtained. Patient was taken to the catheterization lab and prepped and draped in usual fashion. 1% lidocaine was used to anesthetize the right radial artery. A 6- [place] sheath was placed in the right radial artery using modified Seldinger technique. Left coronary angiography was performed with a 6-[place] CLS 3.5 guide catheter and right coronary angiography was performed with a 5-[place] JR5 catheter in various views. Attempted to perform iFR however machine not working properly. Lesion appeared unchanged and therefore procedure ended. The right radial sheath was removed and a TR band was placed with hemostasis achieved. The patient tolerated the procedure well. Patient was transported back to the post catheterization holding area in stable condition. Conscious Sedation: Patient was monitored under the direct supervision of vision of myself for conscious sedation using Versed and fentanyl for a total duration of 26 minutes HEMODYNAMICS: Aorta: 150/96 SELECTIVE CORONARY ARTERIOGRAPHY: LEFT MAIN: The left main is a large caliber vessel which bifurcates into the LAD and circumflex. There is no significant stenosis. LEFT ANTERIOR DESCENDING CORONARY ARTERY: LAD is a large caliber vessel which wraps around to the apex. There are mild luminal irregularities LEFT CIRCUMFLEX CORONARY ARTERY: Left circumflex is a moderate caliber vessel with a focal mid circumflex 50% stenosis and otherwise mild luminal irregularities. RIGHT CORONARY ARTERY: The right coronary artery is a large caliber vessel which gives off a PDA and PLV branch and is the dominant vessel. There are mild luminal irregularities. FINAL IMPRESSION: 1. CAD as described above including 50% circumflex lesion unchanged from prior and otherwise mild luminal irregularities. PLAN: 1. Aggressive risk factor modification per most recent ACC/AHA guidelines. 2. Circumflex lesion appears unchanged from heart catheterization September 2021 and should not be causing bradycardia. Attempted iFR however not working properly. May consider stress testing or repeat heart catheterization with iFR to assess hemodynamic significance of circumflex lesion however appears nonsignificant angiographically.
[2022-09-07] MEDS: SPIRONOLACTONE 25 MG TAB PO SCH (09:27)
[2022-09-07] MEDS: ACETAMINOPHEN TAB 325 MG TAB PO PRN ×2 (09:27→17:28)
[2022-09-07] MEDS: PANTOPRAZOLE 40 MG TABLET PO SCH (09:27)
[2022-09-07] MEDS: FAMOTIDINE 20 MG TAB PO SCH ×2 (09:27→20:52)
[2022-09-07] MEDS: LOSARTAN 50 MG TAB PO SCH (09:27)
[2022-09-07] MEDS: FLUoxetine HCL 20 MG CAP PO SCH (09:27)
[2022-09-07] MEDS: busPIRone HCl 10 MG TAB PO SCH ×2 (09:28→20:52)
[2022-09-07] MEDS: FUROSEMIDE 40 MG TAB PO SCH (09:28)
[2022-09-07] MEDS: NICOTINE 14MG/24HR PATCH TRANSDERM SCH (09:46)
--- NOTE | 2022-09-07 09:54 | P.PN ---
Subjective History of present illness: HISTORY OF PRESENTING ILLNESS This is a pleasant 61-year-old female past medical history significant for mild to moderate coronary artery disease, COPD, congestive heart failure, nonischemic cardiomyopathy, persistent atrial fibrillation, sick sinus syndrome, hypertension, dyslipidemia, former smoker, obstructive sleep apnea, hypothyroidism. She follows in the office with Dr. Sharp. We have been asked to see in consultation for bradycardia. She presents to the ER with multiple complaints. She has been having nausea, diarrhea, not feeling well, and dizziness. Yesterday she was going to the bathroom having a bowel movement and had an episode where she thinks she briefly passed out. She checked her pulse ox at home and noticed her HR being 180s and then down to the 40s. She has been noticing her heart rate fluctuating over the past few weeks. She noticed increased dizziness yesterday. Over the past 1-2 weeks, she has noticed chest pain, especially when going up the stairs or exerting her self. She has radiation to her bilateral arms. It comes and goes. She does notice it more when doing activity, but has had it when lying and sittin gas well. She did have some discomfort last night as well. She has associated shortness of breath, nausea and diaphoresis with the chest discomfort. Currently she is chest pain free. She has no history of ID, stroke, or diabetes. She recently quit smoking cigarettes, does use marijuana occasionally. Denies alcohol use In February 2022, she followed up with Dr. Sharp, her digoxin was discontinued and Toprol XL dose adjusted. She underwent a Holter monitor 07/2022 revealed atrial fibrillation with heart rates ranging from 48-114 beats per minutes, average heart rate is 77 beats per minutes. 09/07 Patient seen and examined. Patient underwent heart catheterization this morning which showed stable CAD with 50% circumflex stenosis. Does not appear significant enough to be causing bradycardia. Patient's metoprolol has been held and heart rates in the 110s to 130s. Restart metoprolol 100 mg daily and if relatively controlled patient may be discharged home tomorrow on event monitor. PHYSICAL EXAMINATION Vitals reviewed CONSTITUTIONAL: No apparent distress. HEENT: Head is normocephalic. Pupils are equal, round. Sclerae anicteric. Mucous membranes of the mouth are moist. No JVD. No carotid bruit. CHEST EXAMINATION: Lungs are clear to auscultation. No chest wall tenderness is noted on palpation or with deep breathing. HEART EXAMINATION: Irregular rate and rhythm. S1, S2 heard. No murmurs, gallops or rub. ABDOMEN: Soft, nontender. Positive bowel sounds. EXTREMITIES: 2+ peripheral pulses, no lower extremity edema and no calf t enderness. NEUROLOGIC EXAMINATION: Patient is awake, alert and oriented x3. ASSESSMENT Chest discomfort, with exertion, rule out unstable angina Dizziness Possible syncopal episode per patient while having a bowel movement Nausea and diarrhea Persistent atrial fibrillation, on Eliquis outpatient, slow ventricular response, rule out tachy-katharina syndrome COPD Leukocytosis Anemia Chronic heart failure with preserved ejection fraction History of nonischemic cardiomyopathy History of hypertension Dyslipidemia Former smoker Obstructive sleep apnea Hypothyroidism PLAN Patient now having A. fib with mild RVR. Restart metoprolol 100 mg daily. Heart catheterization appears stable. Hopeful if heart rates better control discharge home tomorrow on event monitor with outpatient follow-up. Objective - Vital Signs Vital signs: Vital Signs Temp 97.8 F 09/07/22 04:15 Pulse 83 09/07/22 04:15 Resp 17 09/07/22 04:15 BP 148/89 09/07/22 04:15 Pulse Ox 100 09/07/22 04:15 FiO2 Intake & Output 09/06/22 09/07/22 09/07/22 18:59 06:59 18:59 Intake Total 343.637 446.363 100 Output Total 3450 600 Balance -3106.363 -153.637 100 Intake: IV 100 Intake, IV Titration 103.637 446.363 Amount Heparin Sod,Pork in 0.45% 103.637 146.363 NaCl 25,000 unit In 0.45 % NaCl 1 250ml.bag @ 12 UNITS/KG/HR 17.418 mls/hr IV .[id number] [facility] Rx#: [id number] Sodium Chloride 0.9% 1, 300 000 ml @ 75 mls/hr IV . [id number] [facility] Rx#:[id number] Oral 240 Output: Urine 3450 600 Other: Voiding Method Toilet Toilet - Labs CBC & Chem 7: 09/06/22 15:03 09/05/22 17:03 Labs: Abnormal Lab Results - Last 24 Hours (Table) 11/07/22 11/07/22 Range/Units 15:03 15:03 RBC 2.97 L (3.80-5.40) m/uL Hgb 7.6 L (11.4-16.0) gm/dL Hct 27.2 L (34.0-46.0) % MCHC 27.8 L (31.0-37.0) g/dL Neutrophils # 8.2 H (1.3-7.7) k/uL APTT >200.0 H* (22.0-30.0) sec
--- NOTE | 2022-09-07 09:56 | CA ---
Transthoracic Echo Report Name: Ami Burns Age: 61 Gender: F : 1960 Exam Date: 09/06/2022 10:34 Exam Location: [facility] Ht (in): 66 Wt (lb): 320 Ordering Physician: Gracy Grubbs Attending/Referring Phys: Computer Systems Support Specialist Marsha Lopez RDCS Procedure CPT: Indications: chest pain, bradycardia Cardiac Hx: Technical Quality: Good Contrast 1: Lumason Total Dose (mL): 4 Contrast 2: Total Dose (mL): MEASUREMENTS (Male / Female) Normal Values 2D ECHO LV Diastolic Diameter PLAX 5.3 cm 4.2 - 5.9 / 3.9 - 5.3 cm LV Systolic Diameter PLAX 4.0 cm IVS Diastolic Thickness 1.3 cm 0.6 - 1.0 / 0.6 - 0.9 cm LVPW Diastolic Thickness 1.2 cm 0.6 - 1.0 / 0.6 - 0.9 cm LV Relative Wall Thickness 0.5 RV Internal Dim ED PLAX 3.5 cm LA Systolic Diameter LX 4.2 cm 3.0 - 4.0 / 2.7 - 3.8 cm LA Volume 124.2 cm??? 18 - 58 / 22 - 52 cm??? M-MODE Aortic Root Diameter MM 3.6 cm MV E Point Septal Separation 0.4 cm AV Cusp Separation MM 2.5 cm DOPPLER AV Peak Velocity 165.4 cm/s AV Peak Gradient 10.9 mmHg MV Area PHT 3.3 cm??? MV Deceleration Time 276.7 ms TR Peak Velocity 278.8 cm/s TR Peak Gradient 31.1 mmHg Right Ventricular Systolic Press 35.0 mmHg FINDINGS Left Ventricle Left ventricular ejection fraction is estimated at 50-55 %. Mildly increased septal wall thickness. Mildly increased posterior wall thickness. Left ventricular cavity size normal uppear limits Right Ventricle Mild right ventricular dilatation. Mild pulmonary hypertension. Right Atrium Normal right atrial size. Left Atrium Mildly increased left atrial diameter. Severely increased left atrial volume. Moderately increased left atrial area. No evidence for an atrial septal defect. Mitral Valve Structurally normal mitral valve. No mitral stenosis, regurgitation or prolapse. Aortic Valve Trileaflet aortic valve. No aortic valve stenosis or regurgitation. Tricuspid Valve Mild tricuspid regurgitation. Pulmonic Valve Pulmonic valve not well visualized. Pericardium Small pericardial effusion. Aorta Normal size aortic root and proximal ascending aorta. CONCLUSIONS Technically difficult study for interpretation Normal left ventricular dimension and systolic function Previewed by: Dr. Jean Carlos Manjarrez MD (Electronically Signed) Final Date: 07 September 2022 09:56
[2022-09-07] MEDS ORDERED: RX INFO: IV CONTRAST WAS GIVEN 1 EACH MISC MISCELLANE PRN (10:22)
[2022-09-07] MEDS: METOPROLOL SUCCINATE (ER) 100 MG TAB.ER.24H PO SCH (10:31)
[2022-09-07] MEDS: POTASSIUM CITRATE 10 MEQ TABLET.ER PO SCH (10:32)
[2022-09-07 11:05] VITALS: BMI 51.6
--- NOTE | 2022-09-07 15:21 | P.PN ---
Progress Note - Text Progress Note Date: 09/07/22 Chief Complaint: Past out This is a pleasant 61-year-old patient follows Dr. Berg. Chronic stable medical conditions include atrial fibrillation, COPD, GERD, hyperlipidemia, hypertension, obstructive sleep apnea uses CPAP, hypothyroid, uses 3 L of oxygen during the daytime and 6 L at night, had breast cancer 4 years ago treated with chemoradiation and partial mastectomy, kidney stones, anxiety depression. Patient been a long-standing smoker and quit about 9 months ago started back a few cigarettes a day recently. Patient presents with episodes of heart rate going anywhere from 180s down to 40s. Yesterday when she was sitting on the toilet become very diaphoretic and then passed out not sure for how long. Was leaning against the wall. Has been feeling weak for 3-4 weeks. No fever no chills. Short of breath. Some wheezing. 09/07/2022: Cardiac catheterization showed 50% circumflex lesion same as before. Heart rate in the 120s. Started on Toprol-XL 100 mg a today. Utilization services called to inform that happen insurance will only quantify the patient observation. Hence patient be changed to observation. Active Medications Acetaminophen (Acetaminophen Tab 325 Mg Tab) 650 mg PO Q6HR PRN PRN Reason: Mild Pain or Fever > 100.5 Last Admin: 09/07/22 09:27 Dose: 650 mg Albuterol Sulfate (Albuterol Nebulized 2.5 Mg/3 Ml) 2.5 mg INHALATION RT-Q6H PRN PRN Reason: Shortness Of Breath Last Admin: 09/06/22 11:22 Dose: 2.5 mg Albuterol/Ipratropium (Ipratropium-Albuterol 3 Ml Neb) 3 ml INHALATION RT-TID [facility] Last Admin: 09/07/22 10:45 Dose: 3 ml Alprazolam (Alprazolam 0.25 Mg Tab) 0.25 mg PO Q6HR PRN PRN Reason: Mild Anxiety Alprazolam (Alprazolam 0.5 Mg Tab) 0.5 mg PO Q6HR PRN PRN Reason: Moderate Anxiety Last Admin: 09/06/22 20:47 Dose: 0.5 mg Apixaban (Apixaban 5 Mg Tab) 5 mg PO BID [facility]; Protocol Atorvastatin Calcium (Atorvastatin 20 Mg Tab) 20 mg PO HS [facility] Last Admin: 09/06/22 20:46 Dose: 20 mg Budesonide (Budesonide 1 Mg/2 Ml Nebu) 1 mg INHALATION RT-BID [facility] Last Admin: 09/07/22 07:40 Dose: Not Given Buspirone HCl (Buspirone Hcl 10 Mg Tab) 10 mg PO BID [facility] Last Admin: 09/07/22 09:28 Dose: 10 mg Famotidine (Famotidine 20 Mg Tab) 20 mg PO BID [facility] Last Admin: 09/07/22 09:27 Dose: 20 mg Fluoxetine HCl (Fluoxetine Hcl 20 Mg Cap) 40 mg PO DAILY [facility] Last Admin: 09/07/22 09:27 Dose: 40 mg Furosemide (Furosemide 40 Mg Tab) 40 mg PO DAILY [facility] Last Admin: 09/07/22 09:28 Dose: 40 mg Sodium Chloride (Saline 0.9%) 1,000 mls @ 75 mls/hr IV .[id number] [facility] Last Admin: 09/07/22 09:28 Dose: 75 mls/hr Heparin Sodium (Porcine) 10, (000 unit/ Sodium Chloride) 1,001 mls @ 999 mls/hr IRRIGATION ONCE PRN PRN Reason: INTRA-OP Stop: 09/07/22 23:00 Heparin Sodium (Porcine) 2,500 (unit/ Sodium Chloride) 250.5 mls @ 250 mls/hr IRRIGATION ONCE PRN PRN Reason: INTRA-OP Stop: 09/07/22 23:00 Levothyroxine Sodium (Levothyroxine 137 Mcg Tab) 137 mcg PO DAILY@0730 [facility] Last Admin: 09/07/22 06:51 Dose: 137 mcg Losartan Potassium (Losartan 50 Mg Tab) 100 mg PO DAILY [facility] Last Admin: 09/07/22 09:27 Dose: 100 mg Metoprolol Succinate (Metoprolol Succinate (Er) 100 Mg Tab.Er.24h) 100 mg PO DAILY [facility] Last Admin: 09/07/22 10:31 Dose: 100 mg Miscellaneous Information (Rx Info: Iv Contrast Was Given 1 Each Misc) 1 each MISCELLANE DAILY PRN PRN Reason: Per Protocol Stop: 09/09/22 10:22 Naloxone HCl (Naloxone 0.4 Mg/Ml 1 Ml Vial) 0.2 mg IV Q2M PRN PRN Reason: Opioid Reversal Nicotine (Nicotine 14mg/24hr Patch) 1 patch TRANSDERM DAILY [facility] Last Admin: 09/07/22 09:46 Dose: Not Given Nitroglycerin (Nitroglycerin Sl Tabs 0.4 Mg Tab) 0.4 mg SUBLINGUAL Q5M PRN PRN Reason: Chest Pain Pantoprazole Sodium (Pantoprazole 40 Mg Tablet) 40 mg PO DAILY [facility] Last Admin: 09/07/22 09:27 Dose: 40 mg Potassium Citrate (Potassium Citrate 10 Meq Tablet.Er) 10 meq PO DAILY [facility] Last Admin: 09/07/22 10:32 Dose: 10 meq Spironolactone (Spironolactone 25 Mg Tab) 25 mg PO DAILY [facility] Last Admin: 09/07/22 09:27 Dose: 25 mg Past medical history to include: Atrial fibrillation, COPD, GERD, hyperlipidemia, hypertension, after sleep apnea uses CPAP, hypothyroid, oxygen 3 history the daytime is 6 L at night, breast cancer 4 years ago with treated with chemoradiation and partial mastectomy, kidney stones, anxiety depression Social history: Patient smoked for about 40 years back and a half a day average, he stopped 9 months ago not back to few cigarettes a day. Was using marijuana and abuse up in about a month ago for a pain started feeling weird, then discontinued. Physical examination: VITAL SIGNS: 98, 120, 16, 1 55 x 56, 100% on 6 L GENERAL: Sitting up, let short of breath EYES: Pupils equal. Conjunctiva normal. HEENT: External appearance of nose and ears normal, oral cavity grossly normal. NECK: JVD not raised; masses not palpable. HEART: First and second heart sounds are normal; no edema. LUNGS: Respiratory rate increased, diminished breath sounds ABDOMEN: Soft, nontender, liver spleen not palpable, no masses palpable. PSYCH: Alert and oriented x3; mood and affect normal. MUSCULOSKELETAL:No Clubbing/cyanosis;muscles-grossly intact INVESTIGATIONS, reviewed in the clinical context: White count 13.3 lm 7.4 platelets 561 sodium 142 progression 4.3. 21 crit 0.98 Troponin I 3 negative ProBNP 1540 Stool occult blood negative EKG tracing personally reviewed by me-atrial fibrillation, rate 40, low volume Chest x-ray film personally reviewed by me: Cardiomegaly, possible venous prominence Assessment and plan: -Possible Acute congestive heart failure exacerbation, rule out underlying CAD Lasix. Cardiology consult - atrial fibrillation with a very variable heart rate. Heart rate is been up to 140s down to 40s. Resulting in syncope. Telemetry. Hold Cardizem. Resume Toprol-XL 100 mg a day per cardiology today. -Nonobstructive CAD with 50% circumflex lesion -Acute COPD exacerbation in a current smoker DuoNeb, nebulized Pulmicort -Nicotine dependence, smoker Nicotine patch -Morbid obesity, BMI 51.6 Consult dietitian -Essential hypertension Toprol-XL On Cozaar -IV heparin monitoring, follow PTT -Depression Prozac, BuSpar -Hypothyroid Synthroid -GERD PPI Cardiac catheter results noted. Started on Toprol-XL. Other medications to continue. Discussed with patient.
[2022-09-07 15:49] LABS: Basophils % (A) 0 %; Eosinophils # (A) 0.1 k/uL (0-0.7); Eosinophils % (A) 1 %; HCT 26.3 % (34.0-46.0); HGB 7.6 gm/dL (11.4-16.0); Hypochromasia Marked; Lymphocytes # (A) 1.2 k/uL (1.0-4.8); Lymphocytes % (A) 15 %; MCH 26.3 pg (25.0-35.0); MCHC 28.7 g/dL (31.0-37.0); MCV 91.6 fL (80.0-100.0); Mean Platelet Volume 7.2; Monocytes # (A) 0.8 k/uL (0-1.0); Monocytes % (A) 10 %; Neutrophils # (A) 5.8 k/uL (1.3-7.7); Neutrophils % (A) 72 %; Platelet Count 416 k/uL (150-450); RBC 2.88 m/uL (3.80-5.40); RDW 15.3 % (11.5-15.5)
[2022-09-07 16:17] LABS: African American GFR (CKD) >90 (>60 ml/min/1.73 sqM); Anion Gap 5 mmol/L; Blood Urea Nitrogen 16 mg/dL (7-17); Calcium 8.2 mg/dL (8.4-10.2); Carbon Dioxide 32 mmol/L (22-30); Chloride 103 mmol/L (98-107); Glucose 108 mg/dL (74-99); Non-African American GFR(CKD) 79 (>60 ml/min/1.73 sqM); Potassium 4.3 mmol/L (3.5-5.1); Sodium 140 mmol/L (137-145)
[2022-09-07] MEDS: ALPRAZolam 0.5 MG TAB PO PRN (17:28)
[2022-09-07] MEDS: ATORVASTATIN 20 MG TAB PO SCH (20:52)
[2022-09-07] MEDS: APIXABAN 5 MG TAB PO SCH (20:52)
[2022-09-08 01:36] LABS: % Iron Saturation 2.72 (12.00-45.00); Ferritin 10.8 ng/mL (10.0-291.0); Iron 12 ug/dL (50-170); Total Iron Binding Capacity 427 ug/dL (228-460)
[2022-09-08] MEDS: LEVOTHYROXINE 137 MCG TAB PO SCH (06:43)
[2022-09-08] MEDS: APIXABAN 5 MG TAB PO SCH ×2 (07:51→19:48)
[2022-09-08] MEDS: LOSARTAN 50 MG TAB PO SCH (07:52)
[2022-09-08] MEDS: METOPROLOL SUCCINATE (ER) 100 MG TAB.ER.24H PO SCH (07:52)
[2022-09-08] MEDS: SPIRONOLACTONE 25 MG TAB PO SCH (07:52)
[2022-09-08] MEDS: busPIRone HCl 10 MG TAB PO SCH ×2 (07:52→19:48)
[2022-09-08] MEDS: FAMOTIDINE 20 MG TAB PO SCH ×2 (07:52→19:48)
[2022-09-08] MEDS: FUROSEMIDE 40 MG TAB PO SCH (07:52)
[2022-09-08] MEDS: PANTOPRAZOLE 40 MG TABLET PO SCH (07:52)
[2022-09-08] MEDS: POTASSIUM CITRATE 10 MEQ TABLET.ER PO SCH (07:58)
[2022-09-08] MEDS: NICOTINE 14MG/24HR PATCH TRANSDERM SCH (07:58)
[2022-09-08] MEDS: FLUoxetine HCL 20 MG CAP PO SCH (07:58)
[2022-09-08 08:01] LABS: Basophils % (A) 0 %; Eosinophils # (A) 0.1 k/uL (0-0.7); Eosinophils % (A) 1 %; HCT 27.2 % (34.0-46.0); HGB 7.6 gm/dL (11.4-16.0); Hypochromasia Marked; Lymphocytes # (A) 0.9 k/uL (1.0-4.8); Lymphocytes % (A) 13 %; MCH 25.8 pg (25.0-35.0); MCHC 28.1 g/dL (31.0-37.0); MCV 91.9 fL (80.0-100.0); Mean Platelet Volume 7.6; Monocytes # (A) 0.4 k/uL (0-1.0); Monocytes % (A) 6 %; Neutrophils # (A) 5.6 k/uL (1.3-7.7); Neutrophils % (A) 77 %; Platelet Count 406 k/uL (150-450); RBC 2.96 m/uL (3.80-5.40); RDW 15.5 % (11.5-15.5); WBC 7.3 k/uL (3.8-10.6)
[2022-09-08] MEDS: IPRATROPIUM-ALBUTEROL 3 ML NEB INHALATION SCH ×3 (08:06→19:14)
[2022-09-08] MEDS: BUDESONIDE 1 MG/2 ML NEBU INHALATION SCH ×2 (08:06→19:14)
[2022-09-08 08:08] LABS: Calcium 8.1 mg/dL (8.4-10.2); Potassium 4.4 mmol/L (3.5-5.1)
[2022-09-08] MEDS: DILTIAZEM CD 180 MG CAP.ER.24H PO SCH (13:16)
[2022-09-08] MEDS: SODIUM CHLORIDE 0.9% 1,000 ML IV SCH (13:16)
--- NOTE | 2022-09-08 13:18 | P.PN ---
Subjective This is a pleasant 61-year-old female past medical history significant for mild to moderate coronary artery disease, COPD, congestive heart failure, nonischemic cardiomyopathy, persistent atrial fibrillation, sick sinus syndrome, hypertension, dyslipidemia, former smoker, obstructive sleep apnea, hypothyroidism. She follows in the office with Dr. Sharp. We have been asked to see in consultation for bradycardia. She presents to the ER with multiple complaints. She has been having nausea, diarrhea, not feeling well, and dizziness. Yesterday she was going to the bathroom having a bowel movement and had an episode where she thinks she briefly passed out. She checked her pulse ox at home and noticed her HR being 180s and then down to the 40s. She has been noticing her heart rate fluctuating over the past few weeks. She noticed increased dizziness yesterday. Over the past 1-2 weeks, she has noticed chest pain, especially when going up the stairs or exerting her self. She has radiation to her bilateral arms. It comes and goes. She does notice it more when doing activity, but has had it when lying and sittin gas well. She did have some discomfort last night as well. She has associated shortness of breath, nausea and diaphoresis with the chest discomfort. Currently she is chest pain free. She has no history of ID, stroke, or diabetes. She recently quit smoking cigarettes, does use marijuana occasionally. Denies alcohol use In February 2022, she followed up with Dr. Sharp, her digoxin was discontinued and Toprol XL dose adjusted. She underwent a Holter monitor 07/2022 revealed atrial fibrillation with heart rates ranging from 48-114 beats per minutes, average heart rate is 77 beats per minutes. 09/07 Patient underwent heart catheterization which showed stable CAD with 50% circumflex stenosis. Does not appear significant enough to be causing bradycardia. Patient's metoprolol has been held and heart rates in the 110s to 130s. Restarted metoprolol succinate 100 mg daily 09/08 Patient seen and examined at bedside. Overall symptoms have improved, occasional chest discomfort overnight, no specific alleviating or aggravating factors. She is more tachycardic this morning with HR 90s-115. Denies any shortness of breath. BP 125/71. PHYSICAL EXAMINATION Vitals reviewed CONSTITUTIONAL: No apparent distress. HEENT: Head is normocephalic. Pupils are equal, round. Sclerae anicteric. Mucous membranes of the mouth are moist. No JVD. No carotid bruit. CHEST EXAMINATION: Lungs are clear to auscultation. No chest wall tenderness is noted on palpation or with deep breathing. HEART EXAMINATION: Irregular rate and rhythm. S1, S2 heard. No murmurs, gallops or rub. ABDOMEN: Soft, nontender. Positive bowel sounds. EXTREMITIES: 2+ peripheral pulses, no lower extremity edema and no calf tenderness. NEUROLOGIC EXAMINATION: Patient is awake, alert and oriented x3. ASSESSMENT Chest discomfort Status post cardiac catheterization Coronary artery disease with 50% circumflex stenosis unchanged from prior and otherwise mild luminal irregularities. Dizziness Possible syncopal episode per patient while having a bowel movement Nausea and diarrhea Persistent atrial fibrillation, on Eliquis outpatient, slow ventricular respons e, rule out tachy-katharina syndrome COPD Leukocytosis Anemia Chronic heart failure with preserved ejection fraction History of nonischemic cardiomyopathy History of hypertension Dyslipidemia Former smoker Obstructive sleep apnea Hypothyroidism PLAN Patient now having A. fib with mild RVR this afternoon. Metoprolol succinate restarted at 100 mg daily. Will restart Cardizem at 180mg daily Heart catheterization appears stable. Continue Eliquis Increase activity as tolerated Hopeful if no further chest discomfort and heart rates stable and better control discharge home later today with an event monitor with outpatient follow-up. Nurse practitioner note has been reviewed by physician. Signing provider agrees with the documented findings, assessment, and plan of care. Objective - Vital Signs Vital signs: Vital Signs Temp 98.0 F 09/08/22 04:00 Pulse 102 H 09/08/22 08:17 Resp 18 09/08/22 08:07 BP 141/80 09/08/22 07:54 Pulse Ox 100 09/08/22 08:09 FiO2 Intake & Output 09/07/22 09/08/22 09/08/22 18:59 06:59 18:59 Intake Total 1160 600 118 Output Total 1500 400 Balance -340 200 118 Weight 145.15 kg 144 kg Intake: IV 100 Intake, IV Titration 225 600 Amount Sodium Chloride 0.9% 1, 225 600 000 ml @ 75 mls/hr IV . [id number] [facility] Rx#:[id number] Oral 835 118 Output: Urine 1500 400 Other: Voiding Method Toilet Bedside Commode Bedside Commode # Voids 1 - Labs CBC & Chem 7: 09/08/22 07:41 09/08/22 07:41 Labs: Abnormal Lab Results - Last 24 Hours (Table) 09/07/22 09/07/22 09/08/22 Range/Units 15:15 15:15 07:41 RBC 2.88 L 2.96 L (3.80-5.40) m/uL Hgb 7.6 L 7.6 L (11.4-16.0) gm/dL Hct 26.3 L 27.2 L (34.0-46.0) % MCHC 28.7 L 28.1 L (31.0-37.0) g/dL Lymphocytes # 0.9 L (1.0-4.8) k/uL Carbon Dioxide 32 H (22-30) mmol/L Glucose 108 H (74-99) mg/dL Calcium 8.2 L (8.4-10.2) mg/dL Iron 12 L (50-170) ug/dL % Saturation 2.72 L (12.00-45.00) 09/08/22 Range/Units 07:41 RBC (3.80-5.40) m/uL Hgb (11.4-16.0) gm/dL Hct (34.0-46.0) % MCHC (31.0-37.0) g/dL Lymphocytes # (1.0-4.8) k/uL Carbon Dioxide 36 H (22-30) mmol/L Glucose 119 H (74-99) mg/dL Calcium 8.1 L (8.4-10.2) mg/dL Iron (50-170) ug/dL % Saturation (12.00-45.00)
[2022-09-08] MEDS: ACETAMINOPHEN TAB 325 MG TAB PO PRN ×2 (16:16→21:41)
--- NOTE | 2022-09-08 16:50 | P.PN ---
Progress Note - Text Progress Note Date: 09/08/22 Chief Complaint: Past out This is a pleasant 61-year-old patient follows Dr. Berg. Chronic stable medical conditions include atrial fibrillation, COPD, GERD, hyperlipidemia, hypertension, obstructive sleep apnea uses CPAP, hypothyroid, uses 3 L of oxygen during the daytime and 6 L at night, had breast cancer 4 years ago treated with chemoradiation and partial mastectomy, kidney stones, anxiety depression. Patient been a long-standing smoker and quit about 9 months ago started back a few cigarettes a day recently. Patient presents with episodes of heart rate going anywhere from 180s down to 40s. Yesterday when she was sitting on the toilet become very diaphoretic and then passed out not sure for how long. Was leaning against the wall. Has been feeling weak for 3-4 weeks. No fever no chills. Short of breath. Some wheezing. 09/07/2022: Cardiac catheterization showed 50% circumflex lesion same as before. Heart rate in the 120s. Started on Toprol-XL 100 mg a today. Utilization services called to inform that [facility] insurance will only qualify the patient observation. Hence patient be changed to observation. 09/08/2022: Placed on Toprol yesterday. Heart rate up to 120s today. Cardizem CD 180 mg added. Watch telemetry for any drop in heart rate. Discussed with patient. Active Medications Acetaminophen (Acetaminophen Tab 325 Mg Tab) 650 mg PO Q6HR PRN PRN Reason: Mild Pain or Fever > 100.5 Last Admin: 09/08/22 16:16 Dose: 650 mg Albuterol Sulfate (Albuterol Nebulized 2.5 Mg/3 Ml) 2.5 mg INHALATION RT-Q6H PRN PRN Reason: Shortness Of Breath Last Admin: 09/06/22 11:22 Dose: 2.5 mg Albuterol/Ipratropium (Ipratropium-Albuterol 3 Ml Neb) 3 ml INHALATION RT-TID [facility] Last Admin: 09/08/22 11:49 Dose: 3 ml Apixaban (Apixaban 5 Mg Tab) 5 mg PO BID [facility]; Protocol Last Admin: 09/08/22 07:51 Dose: 5 mg Atorvastatin Calcium (Atorvastatin 20 Mg Tab) 20 mg PO HS [facility] Last Admin: 09/07/22 20:52 Dose: 20 mg Budesonide (Budesonide 1 Mg/2 Ml Nebu) 1 mg INHALATION RT-BID [facility] Last Admin: 09/08/22 08:06 Dose: 1 mg Buspirone HCl (Buspirone Hcl 10 Mg Tab) 10 mg PO BID [facility] Last Admin: 09/08/22 07:52 Dose: 10 mg Diltiazem HCl (Diltiazem Cd 180 Mg Cap.Er.24h) 180 mg PO DAILY [facility] Last Admin: 09/08/22 13:16 Dose: 180 mg Famotidine (Famotidine 20 Mg Tab) 20 mg PO BID [facility] Last Admin: 09/08/22 07:52 Dose: 20 mg Fluoxetine HCl (Fluoxetine Hcl 20 Mg Cap) 40 mg PO DAILY [facility] Last Admin: 09/08/22 07:58 Dose: 40 mg Furosemide (Furosemide 40 Mg Tab) 40 mg PO DAILY [facility] Last Admin: 09/08/22 07:52 Dose: 40 mg Sodium Chloride (Saline 0.9%) 1,000 mls @ 75 mls/hr IV .[id number] [facility] Last Admin: 09/08/22 13:16 Dose: 75 mls/hr Levothyroxine Sodium (Levothyroxine 137 Mcg Tab) 137 mcg PO DAILY@0730 [facility] Last Admin: 09/08/22 06:43 Dose: 137 mcg Losartan Potassium (Losartan 50 Mg Tab) 100 mg PO DAILY [facility] Last Admin: 09/08/22 07:52 Dose: 100 mg Metoprolol Succinate (Metoprolol Succinate (Er) 100 Mg Tab.Er.24h) 100 mg PO DAILY [facility] Last Admin: 09/08/22 07:52 Dose: 100 mg Miscellaneous Information (Rx Info: Iv Contrast Was Given 1 Each Misc) 1 each MISCELLANE DAILY PRN PRN Reason: Per Protocol Stop: 09/09/22 10:22 Naloxone HCl (Naloxone 0.4 Mg/Ml 1 Ml Vial) 0.2 mg IV Q2M PRN PRN Reason: Opioid Reversal Nicotine (Nicotine 14mg/24hr Patch) 1 patch TRANSDERM DAILY [facility] Last Admin: 09/08/22 07:58 Dose: Not Given Nitroglycerin (Nitroglycerin Sl Tabs 0.4 Mg Tab) 0.4 mg SUBLINGUAL Q5M PRN PRN Reason: Chest Pain Pantoprazole Sodium (Pantoprazole 40 Mg Tablet) 40 mg PO DAILY [facility] Last Admin: 09/08/22 07:52 Dose: 40 mg Potassium Citrate (Potassium Citrate 10 Meq Tablet.Er) 10 meq PO DAILY [facility] Last Admin: 09/08/22 07:58 Dose: 10 meq Spironolactone (Spironolactone 25 Mg Tab) 25 mg PO DAILY [facility] Last Admin: 09/08/22 07:52 Dose: 25 mg Past medical history to include: Atrial fibrillation, COPD, GERD, hyperlipidemia, hypertension, after sleep apnea uses CPAP, hypothyroid, oxygen 3 history the daytime is 6 L at night, breast cancer 4 years ago with treated with chemoradiation and partial mastectomy, kidney stones, anxiety depression Social history: Patient smoked for about 40 years back and a half a day average, he stopped 9 months ago not back to few cigarettes a day. Was using marijuana and abuse up in about a month ago for a pain started feeling weird, then discontinued. Physical examination: VITAL SIGNS: Afebrile, 120, 18, 1 4180, 100% on 3 L GENERAL: Sitting up, breathing better EYES: Pupils equal. Conjunctiva normal. HEENT: External appearance of nose and ears normal, oral cavity grossly normal. NECK: JVD not raised; masses not palpable. HEART: First and second heart sounds are normal; no edema. LUNGS: Respiratory rate increased, diminished breath sounds ABDOMEN: Soft, nontender, liver spleen not palpable, no masses palpable. PSYCH: Alert and oriented x3; mood and affect normal. MUSCULOSKELETAL:No Clubbing/cyanosis;muscles-grossly intact INVESTIGATIONS, reviewed in the clinical context: 09/08/2022: Total bili 7.3 platelets 7.6 potassium 4.4 creatinine 0.93 I did 12 TIBC 427% saturation 2.7 to transfer 305 ferritin 10.8 White count 13.3 lm 7.4 platelets 561 sodium 142 progression 4.3. 21 crit 0.98 Troponin I 3 negative ProBNP 1540 Stool occult blood negative EKG tracing personally reviewed by me-atrial fibrillation, rate 40, low volume Chest x-ray film personally reviewed by me: Cardiomegaly, possible venous prominence Assessment and plan: -Possible Acute congestive heart failure exacerbation, : Better Lasix. Cardiology consult - atrial fibrillation with a very variable heart rate. Heart rate is been up to 140s down to 40s. Resulting in syncope. On presentation. Telemetry. Cardizem CD 180 mg a day added by cartilage in today.. Toprol-XL 100 mg a day -Nonobstructive CAD with 50% circumflex lesion, per cardiac cath -Acute COPD exacerbation in a current smoker: Better DuoNeb, nebulized Pulmicort -Nicotine dependence, smoker Nicotine patch -Morbid obesity, BMI 51.6 Consult dietitian -Essential hypertension Toprol-XL On Cozaar -IV heparin monitoring, follow PTT -Depression Prozac, BuSpar -Hypothyroid Synthroid -GERD PPI Toprol-XL. A. fib still uncontrolled. Cardizem CD 180 mg added today. Other medications to continue. Follow with cardiology
[2022-09-08] MEDS: ATORVASTATIN 20 MG TAB PO SCH (19:48)
[2022-09-08 20:50] LABS: Glucose,Whole Blood 122 mg/dL (70-110)
[2022-09-08] MEDS: ONDANSETRON 4 MG/2 ML VIAL IVP PRN (20:51)
[2022-09-09] MEDS: SODIUM CHLORIDE 0.9% 1,000 ML IV SCH ×2 (01:50→14:59)
[2022-09-09] MEDS: LEVOTHYROXINE 137 MCG TAB PO SCH (06:03)
[2022-09-09] MEDS: BUDESONIDE 1 MG/2 ML NEBU INHALATION SCH ×2 (07:44→20:04)
[2022-09-09] MEDS: ALBUTEROL NEBULIZED 2.5 MG/3 ML INHALATION PRN (07:44)
[2022-09-09] MEDS: IPRATROPIUM-ALBUTEROL 3 ML NEB INHALATION SCH ×3 (09:07→20:04)
[2022-09-09] MEDS: ONDANSETRON 4 MG/2 ML VIAL IVP PRN ×2 (09:15→18:33)
--- NOTE | 2022-09-09 09:27 | P.PN ---
Subjective This is a pleasant 61-year-old female past medical history significant for mild to moderate coronary artery disease, COPD, congestive heart failure, nonischemic cardiomyopathy, persistent atrial fibrillation, sick sinus syndrome, hypertension, dyslipidemia, former smoker, obstructive sleep apnea, hypothyroidism. She follows in the office with Dr. Sharp. We have been asked to see in consultation for bradycardia. She presents to the ER with multiple complaints. She has been having nausea, diarrhea, not feeling well, and dizziness. Yesterday she was going to the bathroom having a bowel movement and had an episode where she thinks she briefly passed out. She checked her pulse ox at home and noticed her HR being 180s and then down to the 40s. She has been noticing her heart rate fluctuating over the past few weeks. She noticed increased dizziness yesterday. Over the past 1-2 weeks, she has noticed chest pain, especially when going up the stairs or exerting her self. She has radiation to her bilateral arms. It comes and goes. She does notice it more when doing activity, but has had it when lying and sittin gas well. She did have some discomfort last night as well. She has associated shortness of breath, nausea and diaphoresis with the chest discomfort. Currently she is chest pain free. She has no history of [place], stroke, or diabetes. She recently quit smoking cigarettes, does use marijuana occasionally. Denies alcohol use In February 2022, she followed up with Dr. Sharp, her digoxin was discontinued and Toprol XL dose adjusted. She underwent a Holter monitor 07/2022 revealed atrial fibrillation with heart rates ranging from 48-114 beats per minutes, average heart rate is 77 beats per minutes. 09/07 Patient underwent heart catheterization which showed stable CAD with 50% circumflex stenosis. Does not appear significant enough to be causing bradycardia. Patient's metoprolol has been held and heart rates in the 110s to 130s. Restarted metoprolol succinate 100 mg daily 09/08 Patient seen and examined at bedside. Overall symptoms have improved, occasional chest discomfort overnight, no specific alleviating or aggravating factors. She is more tachycardic this morning with HR 90s-115. Denies any shortness of breath. BP 125/71. 09/09 Seen and examined. Cardizem was also added yesterday and heart rates mainly in the 90s to 100. She denies any lightheadedness. Admits to chronic shortness breath however no change. Unfortunately she is more nauseous and having watery type diarrhea this morning. Admits to some mild abdominal pain. PHYSICAL EXAMINATION Vitals reviewed CONSTITUTIONAL: No apparent distress. HEENT: Head is normocephalic. Pupils are equal, round. Sclerae anicteric. Mucous membranes of the mouth are moist. No JVD. No carotid bruit. CHEST EXAMINATION: Lungs are clear to auscultation. No chest wall tenderness is noted on palpation or with deep breathing. HEART EXAMINATION: Irregular rate and rhythm. S1, S2 heard. No murmurs, gallops or rub. ABDOMEN: Soft, nontender. Positive bowel sounds. EXTREMITIES: 2+ peripheral pulses, no lower extremity edema and no calf tenderness. NEUROLOGIC EXAMINATION: Patient is awake, alert and oriented x3. ASSESSMENT Chest discomfort Status post cardiac catheterization with stable CAD Coronary artery disease with 50% circumflex stenosis unchanged from prior and otherwise mild luminal irregularities. Dizziness Possible syncopal episode per patient while having a bowel movement Nausea and diarrhea Persistent atrial fibrillation, on Eliquis outpatient, slow ventricular response, rule out tachy-katharina syndrome COPD Leukocytosis Anemia Chronic heart failure with preserved ejection fraction History of nonischemic cardiomyopathy History of hypertension Dyslipidemia Former smoker Obstructive sleep apnea Hypothyroidism PLAN Heart rates appears predominantly controlled with metoprolol succinate 100 mg daily and Cardizem at 180mg daily Heart catheterization appears stable. Continue Eliquis Increase activity as tolerated Heart rates appear stable and symptom was she appears stable however is having more nausea and diarrhea. Continue current regimen. Hopeful discharge home with outpatient monitor when nausea and diarrhea have improved. Objective - Vital Signs Vital signs: Vital Signs Temp 98.6 F 09/09/22 03:19 Pulse 100 09/09/22 07:54 Resp 18 09/09/22 03:19 BP 109/70 09/09/22 03:19 Pulse Ox 100 09/09/22 07:38 FiO2 Intake & Output 09/08/22 09/09/22 09/09/22 18:59 06:59 18:59 Intake Total 118 Output Total 650 Balance 118 -650 Intake: Oral 118 Output: Urine 600 Emesis 50 Other: Voiding Method Bedside Commode Bedside Commode # Voids 1 # Bowel Movements 0 1 - Labs CBC & Chem 7: 09/08/22 07:41 09/08/22 07:41 Labs: Abnormal Lab Results - Last 24 Hours (Table) 09/08/22 Range/Units 20:49 POC Glucose (mg/dL) 122 H (70-110) mg/dL
[2022-09-09] MEDS: DILTIAZEM CD 180 MG CAP.ER.24H PO SCH (09:54)
[2022-09-09] MEDS: LOSARTAN 50 MG TAB PO SCH (09:54)
[2022-09-09] MEDS: busPIRone HCl 10 MG TAB PO SCH ×2 (09:55→20:38)
[2022-09-09] MEDS: METOPROLOL SUCCINATE (ER) 100 MG TAB.ER.24H PO SCH (09:55)
[2022-09-09] MEDS: POTASSIUM CITRATE 10 MEQ TABLET.ER PO SCH (09:55)
[2022-09-09] MEDS: APIXABAN 5 MG TAB PO SCH ×2 (09:55→20:38)
[2022-09-09] MEDS: FAMOTIDINE 20 MG TAB PO SCH ×2 (09:55→20:38)
[2022-09-09] MEDS: FUROSEMIDE 40 MG TAB PO SCH (09:55)
[2022-09-09] MEDS: FLUoxetine HCL 20 MG CAP PO SCH (09:56)
[2022-09-09] MEDS: SPIRONOLACTONE 25 MG TAB PO SCH (09:56)
[2022-09-09] MEDS: PANTOPRAZOLE 40 MG TABLET PO SCH (09:56)
[2022-09-09] MEDS: NICOTINE 14MG/24HR PATCH TRANSDERM SCH (09:57)
[2022-09-09] MEDS: ACETAMINOPHEN TAB 325 MG TAB PO PRN (12:16)
--- NOTE | 2022-09-09 15:12 | P.PN ---
Progress Note - Text Progress Note Date: 09/09/22 Chief Complaint: Past out This is a pleasant 61-year-old patient follows Dr. Berg. Chronic stable medical conditions include atrial fibrillation, COPD, GERD, hyperlipidemia, hypertension, obstructive sleep apnea uses CPAP, hypothyroid, uses 3 L of oxygen during the daytime and 6 L at night, had breast cancer 4 years ago treated with chemoradiation and partial mastectomy, kidney stones, anxiety depression. Patient been a long-standing smoker and quit about 9 months ago started back a few cigarettes a day recently. Patient presents with episodes of heart rate going anywhere from 180s down to 40s. Yesterday when she was sitting on the toilet become very diaphoretic and then passed out not sure for how long. Was leaning against the wall. Has been feeling weak for 3-4 weeks. No fever no chills. Short of breath. Some wheezing. 09/07/2022: Cardiac catheterization showed 50% circumflex lesion same as before. Heart rate in the 120s. Started on Toprol-XL 100 mg a today. Utilization services called to inform that [facility] insurance will only qualify the patient observation. Hence patient be changed to observation. 09/08/2022: Placed on Toprol yesterday. Heart rate up to 120s today. Cardizem CD 180 mg added. Watch telemetry for any drop in heart rate. Discussed with patient. 09/09/2022: Heart rate around 100. Started having nausea vomiting diarrhea since last night. No bowel pain. Changed to full liquid diet. Stool ordered for C. diff. Active Medications Acetaminophen (Acetaminophen Tab 325 Mg Tab) 650 mg PO Q6HR PRN PRN Reason: Mild Pain or Fever > 100.5 Last Admin: 09/09/22 12:16 Dose: 650 mg Albuterol Sulfate (Albuterol Nebulized 2.5 Mg/3 Ml) 2.5 mg INHALATION RT-Q6H PRN PRN Reason: Shortness Of Breath Last Admin: 09/09/22 07:44 Dose: 2.5 mg Albuterol/Ipratropium (Ipratropium-Albuterol 3 Ml Neb) 3 ml INHALATION RT-TID [facility] Last Admin: 09/09/22 11:18 Dose: 3 ml Apixaban (Apixaban 5 Mg Tab) 5 mg PO BID [facility]; Protocol Last Admin: 09/09/22 09:55 Dose: 5 mg Atorvastatin Calcium (Atorvastatin 20 Mg Tab) 20 mg PO HS [facility] Last Admin: 09/08/22 19:48 Dose: 20 mg Budesonide (Budesonide 1 Mg/2 Ml Nebu) 1 mg INHALATION RT-BID [facility] Last Admin: 09/09/22 07:44 Dose: 1 mg Buspirone HCl (Buspirone Hcl 10 Mg Tab) 10 mg PO BID [facility] Last Admin: 09/09/22 09:55 Dose: 10 mg Diltiazem HCl (Diltiazem Cd 180 Mg Cap.Er.24h) 180 mg PO DAILY [facility] Last Admin: 09/09/22 09:54 Dose: 180 mg Famotidine (Famotidine 20 Mg Tab) 20 mg PO BID [facility] Last Admin: 09/09/22 09:55 Dose: 20 mg Fluoxetine HCl (Fluoxetine Hcl 20 Mg Cap) 40 mg PO DAILY [facility] Last Admin: 09/09/22 09:56 Dose: 40 mg Furosemide (Furosemide 40 Mg Tab) 40 mg PO DAILY [facility] Last Admin: 09/09/22 09:55 Dose: 40 mg Sodium Chloride (Saline 0.9%) 1,000 mls @ 75 mls/hr IV .[id number] [facility] Last Admin: 09/09/22 14:59 Dose: Not Given Levothyroxine Sodium (Levothyroxine 137 Mcg Tab) 137 mcg PO DAILY@0730 [facility] Last Admin: 09/09/22 06:03 Dose: 137 mcg Losartan Potassium (Losartan 50 Mg Tab) 100 mg PO DAILY [facility] Last Admin: 09/09/22 09:54 Dose: 100 mg Metoprolol Succinate (Metoprolol Succinate (Er) 100 Mg Tab.Er.24h) 100 mg PO DAILY [facility] Last Admin: 09/09/22 09:55 Dose: 100 mg Naloxone HCl (Naloxone 0.4 Mg/Ml 1 Ml Vial) 0.2 mg IV Q2M PRN PRN Reason: Opioid Reversal Nicotine (Nicotine 14mg/24hr Patch) 1 patch TRANSDERM DAILY [facility] Last Admin: 09/09/22 09:57 Dose: Not Given Nitroglycerin (Nitroglycerin Sl Tabs 0.4 Mg Tab) 0.4 mg SUBLINGUAL Q5M PRN PRN Reason: Chest Pain Ondansetron HCl (Ondansetron 4 Mg/2 Ml Vial) 4 mg IVP Q8HR PRN PRN Reason: Nausea And Vomiting Last Admin: 09/09/22 09:15 Dose: 4 mg Pantoprazole Sodium (Pantoprazole 40 Mg Tablet) 40 mg PO DAILY [facility] Last Admin: 09/09/22 09:56 Dose: 40 mg Potassium Citrate (Potassium Citrate 10 Meq Tablet.Er) 10 meq PO DAILY [facility] Last Admin: 09/09/22 09:55 Dose: 10 meq Spironolactone (Spironolactone 25 Mg Tab) 25 mg PO DAILY [facility] Last Admin: 09/09/22 09:56 Dose: 25 mg Past medical history to include: Atrial fibrillation, COPD, GERD, hyperlipidemia, hypertension, after sleep apnea uses CPAP, hypothyroid, oxygen 3 history the daytime is 6 L at night, breast cancer 4 years ago with treated with chemoradiation and partial mastectomy, kidney stones, anxiety depression Social history: Patient smoked for about 40 years back and a half a day average, he stopped 9 months ago not back to few cigarettes a day. Was using marijuana and abuse up in about a month ago for a pain started feeling weird, then discontinued. Physical examination: VITAL SIGNS: 96.8, 103, 19, 1 26 x 67, 100% on 3 L GENERAL: Sitting up, tired EYES: Pupils equal. Conjunctiva normal. HEENT: External appearance of nose and ears normal, oral cavity grossly normal. NECK: JVD not raised; masses not palpable. HEART: First and second heart sounds are normal; no edema. LUNGS: Respiratory rate increased, diminished breath sounds ABDOMEN: Soft, nontender, liver spleen not palpable, no masses palpable. PSYCH: Alert and oriented x3; mood and affect normal. MUSCULOSKELETAL:No Clubbing/cyanosis;muscles-grossly intact INVESTIGATIONS, reviewed in the clinical context: 09/08/2022: Total bili 7.3 platelets 7.6 potassium 4.4 creatinine 0.93 I did 12 TIBC 427% saturation 2.7 to transfer 305 ferritin 10.8 White count 13.3 lm 7.4 platelets 561 sodium 142 progression 4.3. 21 crit 0.98 Troponin I 3 negative ProBNP 1540 Stool occult blood negative EKG tracing personally reviewed by me-atrial fibrillation, rate 40, low volume Chest x-ray film personally reviewed by me: Cardiomegaly, possible venous prominence Assessment and plan: -Possible Acute congestive heart failure exacerbation, : Better Lasix. Cardiology consult - atrial fibrillation with a very variable heart rate. Heart rate is been up to 140s down to 40s. Resulting in syncope. On presentation.: Controlled Telemetry. Cardizem CD 180 mg a day . Toprol-XL 100 mg a day -Acute gastroenteritis, could be viral. Rule out C. diff. Change to full liquid diet. -Nonobstructive CAD with 50% circumflex lesion, per cardiac cath -Acute COPD exacerbation in a current smoker: Better DuoNeb, nebulized Pulmicort -Nicotine dependence, smoker Nicotine patch -Morbid obesity, BMI 51.6 Consult dietitian -Essential hypertension Toprol-XL On Cozaar -IV heparin monitoring, follow PTT -Depression Prozac, BuSpar -Hypothyroid Synthroid -GERD PPI Heart rate better controlled. Send out stool for C. diff. Full liquid diet. Other medications to continue.
[2022-09-09] MEDS: ATORVASTATIN 20 MG TAB PO SCH (20:38)
[2022-09-10] MEDS: SODIUM CHLORIDE 0.9% 1,000 ML IV SCH (06:07)
[2022-09-10] MEDS: LEVOTHYROXINE 137 MCG TAB PO SCH (06:07)
[2022-09-10] MEDS: IPRATROPIUM-ALBUTEROL 3 ML NEB INHALATION SCH ×2 (08:03→11:55)
[2022-09-10] MEDS: BUDESONIDE 1 MG/2 ML NEBU INHALATION SCH (08:03)
[2022-09-10 08:34] LABS: Calcium 8.4 mg/dL (8.4-10.2); Potassium 4.3 mmol/L (3.5-5.1)
[2022-09-10] MEDS: FUROSEMIDE 40 MG TAB PO SCH (09:24)
[2022-09-10] MEDS: APIXABAN 5 MG TAB PO SCH (09:24)
[2022-09-10] MEDS: PANTOPRAZOLE 40 MG TABLET PO SCH (09:24)
[2022-09-10] MEDS: LOSARTAN 50 MG TAB PO SCH (09:24)
[2022-09-10] MEDS: METOPROLOL SUCCINATE (ER) 100 MG TAB.ER.24H PO SCH (09:24)
[2022-09-10] MEDS: busPIRone HCl 10 MG TAB PO SCH (09:24)
[2022-09-10] MEDS: SPIRONOLACTONE 25 MG TAB PO SCH (09:24)
[2022-09-10] MEDS: POTASSIUM CITRATE 10 MEQ TABLET.ER PO SCH (09:25)
[2022-09-10] MEDS: FAMOTIDINE 20 MG TAB PO SCH (09:25)
[2022-09-10] MEDS: NICOTINE 14MG/24HR PATCH TRANSDERM SCH (09:25)
[2022-09-10] MEDS: FLUoxetine HCL 20 MG CAP PO SCH (09:25)
[2022-09-10] MEDS: DILTIAZEM CD 180 MG CAP.ER.24H PO SCH (09:25)
[2022-09-10 09:29] VITALS: RESP 18; TEMP 97.9
[2022-09-10 12:42] VITALS: BP 99/56; PULSE 51
--- NOTE | 2022-09-10 15:22 | CDI ---
Documentation Clarification Form Date: 09/10/2022 02:51:47 PM From: Venessa Hodges RN CCDS Admit Date: 09/10/2022 07:34:00 AM Patient Name: Ami Burns Visit Number: [id number] Discharge Date: ATTENTION: The Clinical Documentation Specialists (CDI) and [facility] Coding Staff appreciate your assistance in clarifying documentation. Please respond to the clarification below the line at the bottom and electronically sign. The CDI & [facility] Coding staff will review the response and follow-up if needed. Please note: Queries are made part of the Legal Health Record. If you have any questions, please contact the author of this message via ITS. Dr. Rosas Edgar Conflicting documentation has been found in the medical record. As attending physician, please provide clarification. Possible Acute congestive heart failure, Medicine note, 09/09 Chronic heart failure with preserved ejection fraction, Cardiology note, 09/09 History/Risk Factors: 61-year-old female presents to the ED with episodes for heart rate up to 180s to 40s. The patient has become diaphoretic and passed out not sure for how long. Medical History: Atrial fibrillation, COPD , Sleep apnea and HTN. 09/06, H&P Clinical Indicators: Home Medications: Toprol XL 100mg PO Daily; Lasix 40mg PO Daily VSS, 09/05: B/P 108/63; HR 44; Temp 97.5; RR 20, SpO2 100% CXR, 09/05: Findings most consistent with mild CHF. Echocardiogram, 09/06: EF 50-55% Technically difficulty study for interpretation. Normal left ventricular dimension and systolic function. NT Pro B Natriuret Pep, 09/05: 1540 Treatment: 09/06 Lasix 40mg PO Daily; 09/06 Aldactone 25mg PO Daily; 09/07 Toprol XL 100mg PO Daily Please clarify which diagnosis is most appropriate: [ ] Acute and chronic diastolic heart failure [ ] Chronic diastolic heart failure [ ] Acute diastolic heart failure [ ] Other (please specify) [ ] Unable to determine (Template Last Revised: December 2020) MTDD
--- NOTE | 2022-09-10 17:09 | P.DS ---
Providers Date of admission: 09/05/22 18:24 Expected date of discharge: 09/10/22 Attending physician: Rosas Edgar Consults: 09/05/22 18:24 Consult Physician Routine Consulting Provider: Jaxson Sharp Consult Reason/Comments: symptomatic bradycardia Do you want consulting provider notified?: Yes Primary care physician: Pancho Rader [facility] Course: Chief Complaint: Past out This is a pleasant 61-year-old patient follows Dr. Berg. Chronic stable medical conditions include atrial fibrillation, COPD, GERD, hyperlipidemia, hypertension, obstructive sleep apnea uses CPAP, hypothyroid, uses 3 L of oxygen during the daytime and 6 L at night, had breast cancer 4 years ago treated with chemoradiation and partial mastectomy, kidney stones, anxiety depression. Patient been a long-standing smoker and quit about 9 months ago started back a few cigarettes a day recently. Patient presents with episodes of heart rate going anywhere from 180s down to 40s. Yesterday when she was sitting on the toilet become very diaphoretic and then passed out not sure for how long. Was leaning against the wall. Has been feeling weak for 3-4 weeks. No fever no chills. Short of breath. Some wheezing. 09/07/2022: Cardiac catheterization showed 50% circumflex lesion same as before. Heart rate in the 120s. Started on Toprol-XL 100 mg a today. Utilization services called to inform that [facility] insurance will only qualify the patient observation. Hence patient be changed to observation. 09/08/2022: Placed on Toprol yesterday. Heart rate up to 120s today. Cardizem CD 180 mg added. Watch telemetry for any drop in heart rate. Discussed with patient. 09/09/2022: Heart rate around 100. Started having nausea vomiting diarrhea since last night. No bowel pain. Changed to full liquid diet. Stool ordered for C. diff. 09/10/2022: Nausea vomiting diarrhea or resolved. Tolerated a liquid diet this afternoon. Feeling much better. Heart rate controlled. Discussed with patient. Will DC home. Discussion and discharge planning more than 35 minutes Past medical history to include: Atrial fibrillation, COPD, GERD, hyperlipidemia, hypertension, after sleep apnea uses CPAP, hypothyroid, oxygen 3 history the daytime is 6 L at night, breast cancer 4 years ago with treated with chemoradiation and partial mastectomy, kidney stones, anxiety depression Social history: Patient smoked for about 40 years back and a half a day average, he stopped 9 months ago not back to few cigarettes a day. Was using marijuana and abuse up in about a month ago for a pain started feeling weird, then discontinued. Physical examination: VITAL SIGNS: 97.9, 51, 18, 99.56, 99% on 3 L GENERAL: Sitting up, in chair, comfortable EYES: Pupils equal. Conjunctiva normal. HEENT: External appearance of nose and ears normal, oral cavity grossly normal. NECK: JVD not raised; masses not palpable. HEART: First and second heart sounds are normal; no edema. LUNGS: Respiratory rate normal, diminished breath sounds ABDOMEN: Soft, nontender, liver spleen not palpable, no masses palpable. PSYCH: Alert and oriented x3; mood and affect normal. MUSCULOSKELETAL:No Clubbing/cyanosis;muscles-grossly intact INVESTIGATIONS, reviewed in the clinical context: 2-D echocardiogram: EF 50 and 55%. 09/10/2022: Potassium 4.3 creatinine 0.91 09/08/2022: Total bili 7.3 platelets 7.6 potassium 4.4 creatinine 0.93 I did 12 TIBC 427% saturation 2.7 to transfer 305 ferritin 10.8 White count 13.3 lm 7.4 platelets 561 sodium 142 progression 4.3. 21 crit 0.98 Troponin I 3 negative ProBNP 1540 Stool occult blood negative EKG tracing personally reviewed by me-atrial fibrillation, rate 40, low volume Chest x-ray film personally reviewed by me: Cardiomegaly, possible venous prominence Assessment and plan: -Possible Acute congestive heart failure exacerbation from diastolic dysfunction EF 50-55%, : Better Lasix 40 mg daily. Cardiology consult - atrial fibrillation with a very variable heart rate. Heart rate is been up to 140s down to 40s. Resulting in syncope. On presentation.: Controlled Telemetry. Cardizem CD 180 mg a day . Toprol-XL 100 mg a day -Acute gastroenteritis, could be viral.: Resolved Tolerating diet -Nonobstructive CAD with 50% circumflex lesion, per cardiac cath -Acute COPD exacerbation in a current smoker: Better DC on Symbicort -Nicotine dependence, smoker Nicotine patch -Morbid obesity, BMI 51.6 Consult dietitian -Essential hypertension Toprol-XL On Cozaar. Cardizem CD -IV heparin monitoring, follow PTT -Depression Prozac, BuSpar -Hypothyroid Synthroid -GERD PPI Disposition: Home Plan - Discharge Summary Discharge Rx Participant: Yes New Discharge Prescriptions: New Famotidine [Pepcid] 20 mg PO BID #60 tab Diltiazem Cd [Cardizem CD] 180 mg PO DAILY #30 cap Nicotine 14Mg/24Hr Patch [Habitrol] 1 patch TRANSDERM DAILY #14 patch Budesonide/Formoterol Fumarate [Symbicort 160-4.5 Mcg Inhaler] 1 puff INHALATION BID #10.2 gm Continue FLUoxetine HCL [PROzac] 40 mg PO DAILY Atorvastatin [Lipitor] 20 mg PO HS Levothyroxine Sodium [Synthroid] 137 mcg PO DAILY Losartan Potassium [Cozaar] 100 mg PO DAILY busPIRone HCl [Buspar] 10 mg PO BID Apixaban [Eliquis] 5 mg PO BID Omeprazole 20 mg PO DAILY Potassium Citrate [Potassium Citrate ER] 10 meq PO DAILY Furosemide [Lasix] 40 mg PO DAILY Albuterol Sulfate [Albuterol Sulfate Hfa] 2 puff PO RT-Q6H PRN PRN Reason: Shortness Of Breath Changed Metoprolol Succinate (ER) [Toprol XL] 100 mg PO DAILY #0 Discontinued Spironolactone 25 mg PO DAILY dilTIAZem HCL [dilTIAZem HCL 24Hr ER] 360 mg PO DAILY Discharge Medication List Apixaban [Eliquis] 5 mg PO BID 10/01/21 [History] Atorvastatin [Lipitor] 20 mg PO HS 10/01/21 [History] FLUoxetine HCL [PROzac] 40 mg PO DAILY 10/01/21 [History] Levothyroxine Sodium [Synthroid] 137 mcg PO DAILY 10/01/21 [History] Omeprazole 20 mg PO DAILY 10/01/21 [History] Albuterol Sulfate [Albuterol Sulfate Hfa] 2 puff PO RT-Q6H PRN 09/05/22 [History] Furosemide [Lasix] 40 mg PO DAILY 09/05/22 [History] Losartan Potassium [Cozaar] 100 mg PO DAILY 09/05/22 [History] Potassium Citrate [Potassium Citrate ER] 10 meq PO DAILY 09/05/22 [History] busPIRone HCl [Buspar] 10 mg PO BID 09/05/22 [History] Budesonide/Formoterol Fumarate [Symbicort 160-4.5 Mcg Inhaler] 1 puff INHALATION BID #10.2 gm 09/10/22 [Rx] Diltiazem Cd [Cardizem CD] 180 mg PO DAILY #30 cap 09/10/22 [Rx] Famotidine [Pepcid] 20 mg PO BID #60 tab 09/10/22 [Rx] Metoprolol Succinate (ER) [Toprol XL] 100 mg PO DAILY #0 09/10/22 [Rx] Nicotine 14Mg/24Hr Patch [Habitrol] 1 patch TRANSDERM DAILY #14 patch 09/10/22 [Rx] Follow up Appointment(s)/Referral(s): Jaxson Sharp MD [STAFF PHYSICIAN] - 09/20/22 10:30 am Pancho Berg DO [Primary Care Provider] - 09/16/22 8:00 am Patient Instructions/Handouts: Bradycardia (DC) Discharge Disposition: HOME SELF-CARE
--- NOTE | 2022-09-10 20:51 | P.PN ---
Subjective This is a pleasant 61-year-old female past medical history significant for mild to moderate coronary artery disease, COPD, congestive heart failure, nonischemic cardiomyopathy, persistent atrial fibrillation, sick sinus syndrome, hypertension, dyslipidemia, former smoker, obstructive sleep apnea, hypothyroidism. She follows in the office with Dr. Sharp. We have been asked to see in consultation for bradycardia. She presents to the ER with multiple complaints. She has been having nausea, diarrhea, not feeling well, and dizziness. Yesterday she was going to the bathroom having a bowel movement and had an episode where she thinks she briefly passed out. She checked her pulse ox at home and noticed her HR being 180s and then down to the 40s. She has been noticing her heart rate fluctuating over the past few weeks. She noticed increased dizziness yesterday. Over the past 1-2 weeks, she has noticed chest pain, especially when going up the stairs or exerting her self. She has radiation to her bilateral arms. It comes and goes. She does notice it more when doing activity, but has had it when lying and sittin gas well. She did have some discomfort last night as well. She has associated shortness of breath, nausea and diaphoresis with the chest discomfort. Currently she is chest pain free. She has no history of ID, stroke, or diabetes. She recently quit smoking cigarettes, does use marijuana occasionally. Denies alcohol use In February 2022, she followed up with Dr. Sharp, her digoxin was discontinued and Toprol XL dose adjusted. She underwent a Holter monitor 07/2022 revealed atrial fibrillation with heart rates ranging from 48-114 beats per minutes, average heart rate is 77 beats per minutes. 09/07 Patient underwent heart catheterization which showed stable CAD with 50% circumflex stenosis. Does not appear significant enough to be causing bradycardia. Patient's metoprolol has been held and heart rates in the 110s to 130s. Restarted metoprolol succinate 100 mg daily 09/08 Patient seen and examined at bedside. Overall symptoms have improved, occasional chest discomfort overnight, no specific alleviating or aggravating factors. She is more tachycardic this morning with HR 90s-115. Denies any shortness of breath. BP 125/71. 09/09 Seen and examined. Cardizem was also added yesterday and heart rates mainly in the 90s to 100. She denies any lightheadedness. Admits to chronic shortness breath however no change. Unfortunately she is more nauseous and having watery type diarrhea this morning. Admits to some mild abdominal pain. 09/10 Patient seen and examined. States she feels somewhat better today. Not having any more abdominal pain. PHYSICAL EXAMINATION Vitals reviewed CONSTITUTIONAL: No apparent distress. HEENT: Head is normocephalic. Pupils are equal, round. Sclerae anicteric. Mucous membranes of the mouth are moist. No JVD. No carotid bruit. CHEST EXAMINATION: Lungs are clear to auscultation. No chest wall tenderness is noted on palpation or with deep breathing. HEART EXAMINATION: Irregular rate and rhythm. S1, S2 heard. No murmurs, gallops or rub. ABDOMEN: Soft, nontender. Positive bowel sounds. EXTREMITIES: 2+ peripheral pulses, no lower extremity edema and no calf tenderness. NEUROLOGIC EXAMINATION: Patient is awake, alert and oriented x3. ASSESSMENT Chest discomfort Status post cardiac catheterization with stable CAD Coronary artery disease with 50% circumflex stenosis unchanged from prior and otherwise mild luminal irregularities. Dizziness Possible syncopal episode per patient while having a bowel movement Nausea and diarrhea Persistent atrial fibrillation, on Eliquis outpatient, slow ventricular response, rule out tachy-katharina syndrome COPD Leukocytosis Anemia Chronic heart failure with preserved ejection fraction History of nonischemic cardiomyopathy History of hypertension Dyslipidemia Former smoker Obstructive sleep apnea Hypothyroidism PLAN Heart rates appears predominantly controlled with metoprolol succinate 100 mg daily and Cardizem at 180mg daily Heart catheterization appears stable. Continue Eliquis Appears stable from cardio perspective for DC with outpt followup and outpt monitor. Objective - Vital Signs Vital signs: Vital Signs Temp 97.9 F 09/10/22 12:00 Pulse 51 L 09/10/22 14:00 Resp 18 09/10/22 14:00 BP 99/56 09/10/22 12:00 Pulse Ox 99 09/10/22 12:00 FiO2 Intake & Output 09/10/22 09/10/22 09/11/22 06:59 18:59 06:59 Intake Total 550 118 Balance 550 118 Intake: Oral 550 118 Other: Voiding Method Bedside Commode Bedside Commode # Voids 2 - Labs CBC & Chem 7: 09/08/22 07:41 09/10/22 07:40 Labs: Abnormal Lab Results - Last 24 Hours (Table) 09/10/22 Range/Units 07:40 Carbon Dioxide 33 H (22-30) mmol/L BUN 20 H (7-17) mg/dL
== END 2022-09-10 16:03 | disposition home or self-care (01) ==
LOC: EC 16:34 → INTOOBSV 18:24 → 3SCARD 18:24 → INTOOBSV 09-10 07:34 → OBSVTOIN 09-10 07:34
PROVIDERS: ADMIT Hospitalist; ATTEND Hospitalist
DX: R07.9 Chest pain, unspecified (principal); R00.1 Bradycardia, unspecified; I48.19 Other persistent atrial fibrillation; D64.9 Anemia, unspecified; D72.829 Elevated white blood cell count, unspecified; I25.10 Atherosclerotic heart disease of native coronary artery without angina pectoris; I11.0 Hypertensive heart disease with heart failure; I50.32 Chronic diastolic (congestive) heart failure; R42 Dizziness and giddiness; E78.5 Hyperlipidemia, unspecified; J44.1 Chronic obstructive pulmonary disease with (acute) exacerbation; K21.9 Gastro-esophageal reflux disease without esophagitis; I42.8 Other cardiomyopathies; I49.5 Sick sinus syndrome; J96.11 Chronic respiratory failure with hypoxia; G47.33 Obstructive sleep apnea (adult) (pediatric); F41.9 Anxiety disorder, unspecified; F32.A Depression, unspecified; E03.9 Hypothyroidism, unspecified; Z99.81 Dependence on supplemental oxygen; F17.210 Nicotine dependence, cigarettes, uncomplicated; Z90.10 Acquired absence of unspecified breast and nipple; Z87.442 Personal history of urinary calculi; K52.9 Noninfective gastroenteritis and colitis, unspecified; E66.01 Morbid (severe) obesity due to excess calories; Z68.43 Body mass index [BMI] 50.0-59.9, adult; Z79.01 Long term (current) use of anticoagulants; F41.0 Panic disorder [episodic paroxysmal anxiety]; Z90.710 Acquired absence of both cervix and uterus; Z90.49 Acquired absence of other specified parts of digestive tract; Z98.890 Other specified postprocedural states; Z85.3 Personal history of malignant neoplasm of breast; Z92.21 Personal history of antineoplastic chemotherapy; Z92.3 Personal history of irradiation; Z79.890 Hormone replacement therapy; Z79.899 Other long term (current) drug therapy; Z88.5 Allergy status to narcotic agent; Z88.0 Allergy status to penicillin
CPT/HCPCS: 96376; 96365; 96366; 96375; 99285; 36415; 94640 ×10; 94760 ×3; 93005; 93306; 93270; 93458; 85379; 83880; 80053; 80048 ×3; 82728; 82150; 83540; 83550; 83690; 83735; 84484; 85025 ×4; 85610; 85730 ×2; 82272; 81001; 71046; G0378 ×7; C1769 ×3; C1887; C1894; J2250; J2405 ×3; J2001; J3010; J1644 ×3; Q9950; Q9967

== ENCOUNTER 2022-09-11 16:34 | Inpatient (IN) | payer OTHER ==
[2022-09-11 17:05] LABS: Basophils # (A) 0.1 k/uL (0-0.2); Basophils % (A) 0 %; Eosinophils # (A) 0.2 k/uL (0-0.7); Eosinophils % (A) 2 %; HCT 28.4 % (34.0-46.0); HGB 8.2 gm/dL (11.4-16.0); Hypochromasia Marked; Lymphocytes # (A) 1.3 k/uL (1.0-4.8); Lymphocytes % (A) 12 %; MCH 25.9 pg (25.0-35.0); MCHC 29.1 g/dL (31.0-37.0); MCV 89.1 fL (80.0-100.0); Mean Platelet Volume 7.4; Monocytes # (A) 0.9 k/uL (0-1.0); Monocytes % (A) 8 %; Neutrophils # (A) 8.3 k/uL (1.3-7.7); Neutrophils % (A) 75 %; Platelet Count 551 k/uL (150-450); RBC 3.18 m/uL (3.80-5.40); RDW 15.4 % (11.5-15.5); WBC 11.1 k/uL (3.8-10.6)
--- NOTE | 2022-09-11 17:06 | ED ---
General Adult HPI - General Chief complaint: Arrhythmia/Palpitations Stated complaint: AFIB Time Seen by Provider: 09/11/22 16:44 Source: patient, EMS, RN notes reviewed, old records reviewed Mode of arrival: EMS Limitations: no limitations - History of Present Illness Initial comments: Patient is a 61-year-old female presenting to the emergency room with complaints of palpitations and variable heart rate ranging from 150-180 since being discharged home from the hospital yesterday. She was in the hospital for symptomatic bradycardia and anemia along with diverticulitis. She reports having chest pain during her hospitalization which had improved prior to discharge along with lower abdominal pain and some diarrhea which is slowly improving as well. She reports that this afternoon her chest pain returned and is associated with pain between her shoulder blades. She reports that her shortness of breath is at baseline and does continue to have some mild lower abdominal pain. She denies any lower extremity edema, syncopal episodes, lethargy, altered mental status, dizziness, fevers or chills. In addition to her atrial fibrillation hist ory she has a history of COPD and is on 3 L nasal cannula continuously, GERD, hypertension, hyperlipidemia, hypothyroidism, obstructive sleep apnea, anxiety, depression, left breast cancer with chemoradiation and partial masectomy. - Related Data Home Medications Medication Instructions Recorded Confirmed Apixaban [Eliquis] 5 mg PO BID 10/01/21 09/11/22 Atorvastatin [Lipitor] 20 mg PO HS 10/01/21 09/11/22 FLUoxetine HCL [PROzac] 40 mg PO DAILY 10/01/21 09/11/22 Levothyroxine Sodium [Synthroid] 137 mcg PO DAILY 10/01/21 09/11/22 Omeprazole 20 mg PO DAILY 10/01/21 09/11/22 Albuterol Sulfate [Albuterol 2 puff PO RT-Q6H PRN 09/05/22 09/11/22 Sulfate Hfa] Furosemide [Lasix] 40 mg PO DAILY 09/05/22 09/11/22 Losartan Potassium [Cozaar] 100 mg PO DAILY 09/05/22 09/11/22 Potassium Citrate [Potassium 10 meq PO DAILY 09/05/22 09/11/22 Citrate ER] busPIRone HCl [Buspar] 10 mg PO BID 09/05/22 09/11/22 Budesonide/Formoterol Fumarate 1 puff INHALATION RT-BID 09/11/22 09/11/22 [Symbicort 160-4.5 Mcg Inhaler] Previous Rx's Medication Instructions Recorded Diltiazem Cd [Cardizem CD] 180 mg PO DAILY #30 cap 09/10/22 Famotidine [Pepcid] 20 mg PO BID #60 tab 09/10/22 Metoprolol Succinate (ER) [Toprol 100 mg PO DAILY #0 09/10/22 XL] Nicotine 14Mg/24Hr Patch [Habitrol] 1 patch TRANSDERM DAILY #14 patch 09/10/22 Allergies Allergy/AdvReac Type Severity Reaction Status Date / Time morphine Allergy Anaphylaxis Verified 09/11/22 21:56 Penicillins Allergy Nausea & Verified 09/11/22 21:56 Vomiting Review of Systems ROS Statement: Those systems with pertinent positive or pertinent negative responses have been documented in the HPI. ROS Other: All systems not noted in ROS Statement are negative. Past Medical History Past Medical History: Atrial Fibrillation, Cancer, COPD, GERD/Reflux, Hyperlipidemia, Hypertension, Sleep Apnea/CPAP/BIPAP, Thyroid Disorder Additional Past Medical History / Comment(s): O2 use 24hrs per day, 3L/NC during the day, 6L at night. Hx left breast cancer 4 yrs ago treated with Chemo /Radiation and partial Mastectomy. NO BLOOD PRESSURES/LAB DRAWS ON LEFT ARM. Hx kidney stones. Hx kidney failure after Hysterectomy, no problems since. History of Any Multi-Drug Resistant Organisms: None Reported Past Surgical History: Cholecystectomy, Hysterectomy Additional Past Surgical History / Comment(s): Left partial mastectomy and lymph nodes removed, D&C's, Radioactive Iodine Treatment for Thyroid. Past Anesthesia/Blood Transfusion Reactions: Postoperative Nausea & Vomiting (PONV) Past Psychological History: Anxiety, Depression Smoking Status: Current every day smoker Past Alcohol Use History: Rare Past Drug Use History: None Reported - Past Family History Mother Family Medical History: Cancer Father Family Medical History: Cancer Brother(s) Family Medical History: Cancer General Exam Limitations: no limitations General appearance: alert, in no apparent distress Head exam: Present: atraumatic, normocephalic, normal inspection Eye exam: Present: normal appearance, PERRL, EOMI. Absent: scleral icterus, conjunctival injection, periorbital swelling ENT exam: Present: normal exam, mucous membranes moist Neck exam: Present: normal inspection, full ROM Respiratory exam: Present: decreased breath sounds (bibasilar). Absent: respiratory distress, wheezes, rales, rhonchi, stridor, accessory muscle use Cardiovascular Exam: Present: bradycardia, irregular rhythm, normal heart sounds. Absent: systolic murmur, diastolic murmur, rubs, gallop, clicks GI/Abdominal exam: Present: soft, normal bowel sounds. Absent: distended, tenderness, guarding, rebound, rigid Rectal exam: Present: deferred Extremities exam: Present: normal inspection. Absent: tenderness, pedal edema, joint swelling Back exam: Present: normal inspection. Absent: CVA tenderness (R), CVA tenderness (L) Neurological exam: Present: alert, oriented X3, CN II-XII intact Psychiatric exam: Present: normal affect, normal mood Skin exam: Present: warm, dry, intact, normal color. Absent: rash Course Vital Signs 09/11/22 09/11/22 09/11/22 16:36 16:42 17:39 Temperature 98.1 F Pulse Rate 53 L 53 L Pulse Rate [ 50 L Poll Clerk ] Respiratory 18 16 Rate Blood Pressure 94/44 83/40 O2 Sat by Pulse 100 100 Oximetry 09/11/22 09/11/22 19:09 19:46 Temperature Pulse Rate 50 L Pulse Rate [ Poll Clerk ] Respiratory 16 Rate Blood Pressure 100/59 119/53 O2 Sat by Pulse 100 Oximetry - Reevaluation(s) Reevaluation #1: Blood pressure low 83/40. Labs reveal RYDER with a BUN of 28 creatinine of 1.6. Given pain and low blood pressure will proceed with CT to rule out dissection will give IV fluid bolus and hold pain medication the setting of hypotension. 09/11/22 17:50 09/11/22 22:15 Time: 17:50 Medical Decision Making - Medical Decision Making 61-year-old female presenting to the emergency room via EMS with complaints of palpitations, variable heart rate, chest pain along with posterior shoulder blade pain. Recently discharged for palpitations anemia and diverticulosis. Previous hospital records reviewed including cardiology report and discharge packet along with blood work and previous chest x-ray. We'll start workup for chest pain and palpitations with EKG, chest x-ray, CT chest and abdomen with angioma, CBC, CMP, troponin, d-dimer, TSH, proBNP and d-dimer. EKG shows A. fib with bradycardia, chest x-ray image reviewed by myself showing no evidence of vascular congestion or infiltrate. CT angiogram image reviewed with no evidence of aortic dissection. CBC reveals stable anemia and mild leukocytosis. BMP shows acute dehydration with BUN of 28 and creatinine of 1.62. Troponin negative, d-dimer 0.35, TSH normal, proBNP without evidence of overload at 861. Coags normal. Blood pressure improved with IV fluid bolus. Continues to have pain with some nausea. Will give held Dilaudid and give Zofran for nausea. Patient presentation and workup findings discussed with Dr. Edgar who covers for patient's primary care provider and was recently the attending for her previous admission. He is accepting of readmission will place cardiology on consult and continue hydration along with pain control. Case discussed with Dr. Goodman. - Lab Data Result diagrams: 09/11/22 16:46 09/11/22 16:46 Lab Results 09/11/22 09/11/22 09/11/22 Range/Units 16:46 16:46 16:46 WBC 11.1 H (3.8-10.6) k/uL RBC 3.18 L (3.80-5.40) m/uL Hgb 8.2 L (11.4-16.0) gm/dL Hct 28.4 L (34.0-46.0) % MCV 89.1 (80.0-100.0) fL MCH 25.9 (25.0-35.0) pg MCHC 29.1 L (31.0-37.0) g/dL RDW 15.4 (11.5-15.5) % Plt Count 551 H (150-450) k/uL MPV 7.4 Neutrophils % 75 % Lymphocytes % 12 % Monocytes % 8 % Eosinophils % 2 % Basophils % 0 % Neutrophils # 8.3 H (1.3-7.7) k/uL Lymphocytes # 1.3 (1.0-4.8) k/uL Monocytes # 0.9 (0-1.0) k/uL Eosinophils # 0.2 (0-0.7) k/uL Basophils # 0.1 (0-0.2) k/uL Hypochromasia Marked PT 10.4 (9.0-12.0) sec INR 1.0 (<1.2) APTT 23.3 (22.0-30.0) sec D-Dimer (<0.60) mg/L FEU Sodium 139 (137-145) mmol/L Potassium 5.1 (3.5-5.1) mmol/L Chloride 100 (98-107) mmol/L Carbon Dioxide 30 (22-30) mmol/L Anion Gap 9 mmol/L BUN 28 H (7-17) mg/dL Creatinine 1.62 H (0.52-1.04) mg/dL Est GFR (CKD-EPI)AfAm 39 (>60 ml/min/1.73 sqM) Est GFR (CKD-EPI)NonAf 34 (>60 ml/min/1.73 sqM) Glucose 119 H (74-99) mg/dL Calcium 8.3 L (8.4-10.2) mg/dL Magnesium 2.2 (1.6-2.3) mg/dL Total Bilirubin 0.4 (0.2-1.3) mg/dL AST 26 (14-36) U/L ALT 19 (4-34) U/L Alkaline Phosphatase 75 (38-126) U/L Troponin I (0.000-0.034) ng/mL NT-Pro-B Natriuret Pep pg/mL Total Protein 6.1 L (6.3-8.2) g/dL Albumin 3.9 (3.5-5.0) g/dL TSH 2.060 (0.465-4.680) mIU/L 09/11/22 09/11/22 09/11/22 Range/Units 16:46 16:46 16:46 WBC (3.8-10.6) k/uL RBC (3.80-5.40) m/uL Hgb (11.4-16.0) gm/dL Hct (34.0-46.0) % MCV (80.0-100.0) fL MCH (25.0-35.0) pg MCHC (31.0-37.0) g/dL RDW (11.5-15.5) % Plt Count (150-450) k/uL MPV Neutrophils % % Lymphocytes % % Monocytes % % Eosinophils % % Basophils % % Neutrophils # (1.3-7.7) k/uL Lymphocytes # (1.0-4.8) k/uL Monocytes # (0-1.0) k/uL Eosinophils # (0-0.7) k/uL Basophils # (0-0.2) k/uL Hypochromasia PT (9.0-12.0) sec INR (<1.2) APTT (22.0-30.0) sec D-Dimer 0.35 (<0.60) mg/L FEU Sodium (137-145) mmol/L Potassium (3.5-5.1) mmol/L Chloride (98-107) mmol/L Carbon Dioxide (22-30) mmol/L Anion Gap mmol/L BUN (7-17) mg/dL Creatinine (0.52-1.04) mg/dL Est GFR (CKD-EPI)AfAm (>60 ml/min/1.73 sqM) Est GFR (CKD-EPI)NonAf (>60 ml/min/1.73 sqM) Glucose (74-99) mg/dL Calcium (8.4-10.2) mg/dL Magnesium (1.6-2.3) mg/dL Total Bilirubin (0.2-1.3) mg/dL AST (14-36) U/L ALT (4-34) U/L Alkaline Phosphatase (38-126) U/L Troponin I <0.012 (0.000-0.034) ng/mL NT-Pro-B Natriuret Pep 861 pg/mL Total Protein (6.3-8.2) g/dL Albumin (3.5-5.0) g/dL TSH (0.465-4.680) mIU/L - EKG Data EKG Comments: EKG completed at 1640 interpreted by shows atrial fibrillation with slow ventricular rate, T-wave abnormality, ventricular rate 44 bpm, MS interval * ms, QRS duration 93 ms, QT/QTC 438/387 ms, PRT axes *, 77, 90 - Radiology Data Radiology results: report reviewed, image reviewed Two-view chest x-ray impression by radiologist no active cardiopulmonary diseas e. Cardiomegaly not changed compared to old exam on 09/05/2022. CT angio thorax abdomen impression by radiologist with limitations of exam there is no evidence of thoracic or upper abdominal aortic aneurysm or dissection. There is cardiomegaly. There is atherosclerotic vascular disease. No evidence of pulmonary emboli. No suspicious pulmonary mass. Large lower right adrenal mass consistent with benign disease. Left ovarian cyst. Disposition Clinical Impression: Bradycardia, RYDER (acute kidney injury), Hypotension Disposition: ADMITTED IP TO THIS HOSP Condition: Stable Is patient prescribed a controlled substance at d/c from ED?: No Referrals: Pancho Berg DO [Primary Care Provider] - 1-2 days Time of Disposition: 22:16
[2022-09-11] MEDS ORDERED: HYDROmorphone 0.5 MG/0.5 ML SYRINGE IVP STA (17:11)
[2022-09-11 17:14] LABS: Albumin 3.9 g/dL (3.5-5.0); Calcium 8.3 mg/dL (8.4-10.2); Magnesium 2.2 mg/dL (1.6-2.3); Potassium 5.1 mmol/L (3.5-5.1); Total Bilirubin 0.4 mg/dL (0.2-1.3); Total Protein 6.1 g/dL (6.3-8.2)
[2022-09-11 17:35] LABS: Partial Thromboplastin Time 23.3 sec (22.0-30.0); Prothrombin Time 10.4 sec (9.0-12.0)
[2022-09-11] MEDS ORDERED: SODIUM CHLORIDE 0.9% 1,000 ML IV STA ×2 (17:48→20:19)
--- NOTE | 2022-09-11 19:09 | XR ---
EXAMINATION TYPE: XR chest 2V DATE OF EXAM: 09/11/2022 COMPARISON: 09/05/2022 HISTORY: Chest pain TECHNIQUE: 2 views FINDINGS: Heart is enlarged. No heart failure seen. There is left axillary implanted device. There ar e chest leads. No pulmonary consolidation. IMPRESSION: No active cardiopulmonary disease. Cardiomegaly. No change compared to old exam
[2022-09-11] MEDS ORDERED: ONDANSETRON 4 MG/2 ML VIAL IVP STA (20:19)
[2022-09-11] MEDS ORDERED: NALOXONE 0.4 MG/ML 1 ML VIAL IV PRN (20:47)
--- NOTE | 2022-09-11 21:19 | CT ---
EXAMINATION TYPE: CT angio thor/abd pel aorta DATE OF EXAM: 09/11/2022 COMPARISON: None HISTORY: eval dissection Chest pain CT DLP: 2978.2 mGycm Automated exposure control for dose reduction was used. CONTRAST: Performed with IV Contrast, patient injected with 80 mL of Isovue 370. Images obtained from the thoracic inlet to the floor of the pelvis without and with the IV contrast. There are Three-D postprocessed images. The lungs are clear of consolidation. No pleural effusion. Heart is enlarged. No mediastinal adenopat hy. There are no hilar masses. Liver spleen pancreas stomach appear intact. The bile ducts are not dilated. Kidneys have normal size . No hydronephrosis. Appendix appears normal. There is 3 cm cyst on the left ovary. No inguinal herni a. No free fluid in the pelvis. No evidence of a bowel obstruction. There are multiple large bowel di verticula. No diverticulitis. Contrast images only include the chest and the upper abdomen to the mid liver due to equipment malfun ction. Heart is enlarged. There is no filling defect in the pulmonary arteries. Thoracic aorta is intact. No aneurysm or dissection. There is some coronary artery calcification. There is arterial flow in the c eliac artery and superior mesenteric artery. There is low density right adrenal mass measuring 5 x 3 cm and consistent with benign disease. The mid and lower abdominal aorta are not evaluated due to equ ipment failure. IMPRESSION: Within the limitations of the exam there is no evidence of thoracic or upper abdominal aortic aneurys m or dissection. There is cardiomegaly. Atherosclerotic vascular disease. No evidence of pulmonary em bolism. No suspicious pulmonary mass. Large low-density right adrenal mass consistent with benign dis ease. Left ovarian cyst.
[2022-09-11] MEDS: SODIUM CHLORIDE 0.9% 1,000 ML IV SCH (21:41)
[2022-09-11] MEDS: HYDROmorphone 1 MG/ML 1 ML SYRINGE IVP PRN (22:49)
[2022-09-11] MEDS: ONDANSETRON 4 MG/2 ML VIAL IVP PRN (22:49)
[2022-09-12] MEDS ORDERED: MAG HYDROX/AL HYDROX/SIMETH 30 ML, HYOSCYAMINE ELIXIR 10 ML, LIDOCAINE VISCOUS 2% 10 ML PO ONE ×3 (00:03)
[2022-09-12 08:03] LABS: Basophils # (A) 0.1 k/uL (0-0.2); Basophils % (A) 1 %; Eosinophils # (A) 0.1 k/uL (0-0.7); Eosinophils % (A) 1 %; HCT 29.4 % (34.0-46.0); HGB 8.1 gm/dL (11.4-16.0); Hypochromasia Marked; Lymphocytes # (A) 1.3 k/uL (1.0-4.8); Lymphocytes % (A) 13 %; MCH 25.4 pg (25.0-35.0); MCHC 27.6 g/dL (31.0-37.0); MCV 92.3 fL (80.0-100.0); Mean Platelet Volume 7.8; Monocytes # (A) 0.7 k/uL (0-1.0); Monocytes % (A) 7 %; Neutrophils # (A) 7.2 k/uL (1.3-7.7); Neutrophils % (A) 74 %; Platelet Count 378 k/uL (150-450); RBC 3.19 m/uL (3.80-5.40); RDW 15.3 % (11.5-15.5); WBC 9.8 k/uL (3.8-10.6)
[2022-09-12 08:07] LABS: Potassium 4.7 mmol/L (3.5-5.1)
[2022-09-12] MEDS: METOPROLOL SUCCINATE (ER) 100 MG TAB.ER.24H PO SCH (09:44)
[2022-09-12] MEDS: APIXABAN 5 MG TAB PO SCH ×2 (09:44→20:17)
[2022-09-12] MEDS: SODIUM CHLORIDE 0.9% 1,000 ML IV SCH ×2 (09:44→20:25)
[2022-09-12] MEDS: ACETAMINOPHEN TAB 325 MG TAB PO PRN (09:48)
[2022-09-12] MEDS ORDERED: SODIUM CHLORIDE 0.9% 500 ML 500 ML IV ONE (09:54)
[2022-09-12] MEDS ORDERED: FUROSEMIDE 40 MG TAB PO SCH (11:00)
[2022-09-12] MEDS: SYMBICORT 160-4.5 MCG INHALER INHALATION SCH ×2 (11:21→20:12)
[2022-09-12] MEDS: FAMOTIDINE 20 MG TAB PO SCH ×2 (11:28→20:18)
[2022-09-12] MEDS: FLUoxetine HCL 20 MG CAP PO SCH (11:28)
[2022-09-12] MEDS: busPIRone HCl 10 MG TAB PO SCH ×2 (11:28→20:18)
[2022-09-12] MEDS: PANTOPRAZOLE 40 MG TABLET PO SCH (11:28)
[2022-09-12] MEDS: NICOTINE 14MG/24HR PATCH TRANSDERM SCH ×2 (11:29→11:32)
[2022-09-12] MEDS ORDERED: metroNIDAZOLE 250 MG TABLET PO SCH (12:00)
[2022-09-12] MEDS: metroNIDAZOLE 500 MG TAB PO SCH ×3 (12:14→20:18)
[2022-09-12] MEDS: CIPROFLOXACIN HCL 500 MG TAB PO SCH ×2 (12:15→20:18)
[2022-09-12] MEDS: HYDROmorphone 1 MG/ML 1 ML SYRINGE IVP PRN ×2 (12:15→17:48)
[2022-09-12] MEDS: LEVOTHYROXINE 137 MCG TAB PO SCH (12:24)
--- NOTE | 2022-09-12 16:23 | P.CRDCN ---
History of Present Illness Consult date: 09/12/22 History of present illness: HISTORY OF PRESENTING ILLNESS This is a pleasant 61-year-old female past medical history significant for mild to moderate coronary artery disease, COPD, congestive heart failure, nonischemic cardiomyopathy, persistent atrial fibrillation, sick sinus syndrome, hypertension, dyslipidemia, former smoker, obstructive sleep apnea, hypothyroidism. She follows in the office with Dr. Sharp. Patient was recently hospitalized and discharged on 09/10, treated for chest discomfort status post cardiac catheterization with stable coronary artery disease with 50% circumflex stenosis unchanged, possible syncopal episode while having a bowel movement, persistent atrial fibrillation possible tachybradycardia syndrome. Patient states that she went home on 09/10 and was in her normal state of health until yesterday when she became dizzy with back pain, occasional chest pain. She states she has chronic diarrhea that's on and off. Patient presented with initial heart rate of 42 with blood pressure 80 systolic. DIAGNOSTICS * EKG reveals atrial fibrillation with slow ventricular response, heart rate 44 * Cardiac catheterization 08/2022 revealed LAD 1020 percent stenosis, mid circumflex 50% stenosis * Echocardiogram 08/2022 revealed EF 50-55%, mild pulmonary hypertension, mild tricuspid regurgitation * Chest xray no active cardiopulmonary disease. Cardiomegaly. No change from old exam. * CT angiogram of the aorta with no evidence of thoracic or upper abdominal aortic aneurysm or dissection. There is cardiomegaly. Atherosclerotic vascular disease. No evidence of pulmonary embolism. No suspicious pulmonary mass. Large low density right adrenal mass consistent with benign disease. Left ovarian cyst. * Laboratory reviewed, WBC 9.8, hemoglobin 8.1, platelets 378, sodium 137, potassium 4.7, BUN 26, serum creatinine 1.24 presented with creatinine of 1.62, troponin negative 1, proBNP 861 * Current home cardiac medications include eliquis 5 mg twice daily, atorvastatin 20 mg nightly, Cardizem CD 180 mg daily, Lasix 40 mg daily, losartan 100 mg daily, Toprol-XL 100 mg daily REVIEW OF SYSTEMS At the time of my exam: CONSTITUTIONAL: Denies fever or chills. +dizziness CARDIOVASCULAR: Denies chest pain, denies shortness of breath, Denies orthopnea, PND or palpitations. RESPIRATORY: Denies cough. GASTROINTESTINAL: Denies abdominal pain, chronic diarrhea, Denies constipation, nausea or vomiting. MUSCULOSKELETAL: Denies myalgias. NEUROLOGIC: Denies numbness, tingling, headache or weakness. ENDOCRINE: Denies fatigue, weight change, polydipsia or polyurina. GENITOURINARY: Denies burning, hematuria or urgency with micturation. HEMATOLOGIC: Denies history of anemia or bleeding. PHYSICAL EXAMINATION Blood pressure 118/73, HR 81, afebrile, oxygen saturation 99% on 2 L nasal cannula CONSTITUTIONAL: No apparent distress. HEENT: Head is normocephalic. Pupils are equal, round. Sclerae anicteric. Mucous membranes of the mouth are moist. No JVD. No carotid bruit. CHEST EXAMINATION: Lungs are clear to auscultation. No chest wall tenderness is noted on palpation or with deep breathing. HEART EXAMINATION: Irregular rate and rhythm. S1, S2 heard. No murmurs, gallops or rub. ABDOMEN: Soft, nontender. Positive bowel sounds. EXTREMITIES: 2+ peripheral pulses, no lower extremity edema and no calf tenderness. NEUROLOGIC EXAMINATION: Patient is awake, alert and oriented x3. ASSESSMENT Bradycardia Hypotension secondary to diuretics, ARB and chronic diarrhea Acute kidney injury possibly related to diuretics, ARB and chronic diarrhea Chest discomfort, with exertion, acute coronary syndrome ruled out Chronic diarrhea Persistent atrial fibrillation, on Eliquis outpatient, slow ventricular response, rule out tachy-katharina syndrome COPD Leukocytosis Anemia Chronic heart failure with preserved ejection fraction History of nonischemic cardiomyopathy History of hypertension Dyslipidemia Former smoker Obstructive sleep apnea Hypothyroidism PLAN Patient will be resumed on Cardizem at a lower dose of 120 mg daily, resume Toprol-XL 100 mg daily Discontinue losartan and hold Lasix Resume eliquis 5 mg twice daily, atorvastatin 20 mg at bedtime Monitor renal function, electrolytes and hemoglobin Monitor on Telemetry No need to repeat echocardiogram. Further recommendations based on clinical course. Nurse practitioner note has been reviewed by physician. Signing provider agrees with the documented findings, assessment, and plan of care. Patient may still have degree of tachy katharina syndrome but much of symptoms appear related to hypotension. Hold Losartan and Lasix and monitor clinically Dr Mejias Past Medical History Past Medical History: Atrial Fibrillation, Cancer, COPD, GERD/Reflux, Hyperlipidemia, Hypertension, Sleep Apnea/CPAP/BIPAP, Thyroid Disorder Additional Past Medical History / Comment(s): O2 use 24hrs per day, 3L/NC during the day, 6L at night. Hx left breast cancer 4 yrs ago treated with Chemo/Radiation and partial Mastectomy. NO BLOOD PRESSURES/LAB DRAWS ON LEFT ARM. Hx kidney stones. Hx kidney failure after Hysterectomy, no problems since. History of Any Multi-Drug Resistant Organisms: None Reported Past Surgical History: Cholecystectomy, Hysterectomy Additional Past Surgical History / Comment(s): Left partial mastectomy and lymph nodes removed, D&C's, Radioactive Iodine Treatment for Thyroid. Past Anesthesia/Blood Transfusion Reactions: Postoperative Nausea & Vomiting (PONV) Past Psychological History: Anxiety, Depression Smoking Status: Current every day smoker Past Alcohol Use History: Rare Past Drug Use History: None Reported - Past Family History Mother Family Medical History: Cancer Father Family Medical History: Cancer Brother(s) Family Medical History: Cancer Medications and Allergies Home Medications Medication Instructions Recorded Confirmed Type Apixaban [Eliquis] 5 mg PO BID 10/01/21 09/11/22 History Atorvastatin [Lipitor] 20 mg PO HS 10/01/21 09/11/22 History FLUoxetine HCL [PROzac] 40 mg PO DAILY 10/01/21 09/11/22 History Levothyroxine Sodium [Synthroid] 137 mcg PO DAILY 10/01/21 09/11/22 History Omeprazole 20 mg PO DAILY 10/01/21 09/11/22 History Albuterol Sulfate [Albuterol 2 puff PO RT-Q6H PRN 09/05/22 09/11/22 History Sulfate Hfa] Furosemide [Lasix] 40 mg PO DAILY 09/05/22 09/11/22 History Losartan Potassium [Cozaar] 100 mg PO DAILY 09/05/22 09/11/22 History Potassium Citrate [Potassium 10 meq PO DAILY 09/05/22 09/11/22 History Citrate ER] busPIRone HCl [Buspar] 10 mg PO BID 09/05/22 09/11/22 History Diltiazem Cd [Cardizem CD] 180 mg PO DAILY #30 cap 09/10/22 09/11/22 Rx Famotidine [Pepcid] 20 mg PO BID #60 tab 09/10/22 09/11/22 Rx Metoprolol Succinate (ER) [Toprol 100 mg PO DAILY #0 09/10/22 09/11/22 Rx XL] Nicotine 14Mg/24Hr Patch [Habitrol] 1 patch TRANSDERM DAILY #14 patch 09/10/22 09/11/22 Rx Budesonide/Formoterol Fumarate 1 puff INHALATION RT-BID 09/11/22 09/11/22 History [Symbicort 160-4.5 Mcg Inhaler] Allergies Allergy/AdvReac Type Severity Reaction Status Date / Time morphine Allergy Anaphylaxis Verified 09/11/22 21:56 Penicillins Allergy Nausea & Verified 09/11/22 21:56 Vomiting Physical Exam Vitals: Vital Signs Temp Pulse Pulse Resp BP Pulse Ox 09/12/22 09:00 85 18 96 09/12/22 07:23 98.0 F 78 18 110/71 100 09/12/22 02:13 71 18 95 09/12/22 01:05 68 18 109/58 95 09/11/22 23:04 70 18 112/63 95 09/11/22 19:46 119/53 09/11/22 19:09 50 L 16 100/59 100 09/11/22 17:39 53 L 16 83/40 100 09/11/22 16:42 50 L 09/11/22 16:36 98.1 F 53 L 18 94/44 100 Intake and Output 09/11/22 09/12/22 09/12/22 22:59 06:59 14:59 Other: Weight 145.15 kg Results 09/12/22 07:15 09/12/22 07:15 Cardiac Enzymes 09/11/22 09/11/22 Range/Units 16:46 16:46 AST 26 (14-36) U/L Troponin I <0.012 (0.000-0.034) ng/mL Coagulation 09/11/22 Range/Units 16:46 PT 10.4 (9.0-12.0) sec APTT 23.3 (22.0-30.0) sec CBC 09/11/22 09/12/22 Range/Units 16:46 07:15 WBC 11.1 H 9.8 (3.8-10.6) k/uL RBC 3.18 L 3.19 L (3.80-5.40) m/uL Hgb 8.2 L 8.1 L (11.4-16.0) gm/dL Hct 28.4 L 29.4 L (34.0-46.0) % Plt Count 551 H 378 (150-450) k/uL Comprehensive Metabolic Panel 09/11/22 09/12/22 Range/Units 16:46 07:15 Sodium 139 137 (137-145) mmol/L Potassium 5.1 4.7 (3.5-5.1) mmol/L Chloride 100 103 (98-107) mmol/L Carbon Dioxide 30 27 (22-30) mmol/L BUN 28 H 26 H (7-17) mg/dL Creatinine 1.62 H 1.24 H (0.52-1.04) mg/dL Glucose 119 H 98 (74-99) mg/dL Calcium 8.3 L 8.0 L (8.4-10.2) mg/dL AST 26 (14-36) U/L ALT 19 (4-34) U/L Alkaline Phosphatase 75 (38-126) U/L Total Protein 6.1 L (6.3-8.2) g/dL Albumin 3.9 (3.5-5.0) g/dL Current Medications Generic Name Dose Route Start Last Admin Trade Name Freq PRN Reason Stop Dose Admin Acetaminophen 650 mg 09/11/22 20:47 Acetaminophen Tab 325 Mg Tab PO Q6HR PRN Mild Pain or Fever > 100.5 Hydromorphone HCl 1 mg 09/11/22 20:47 09/11/22 22:49 Hydromorphone 1 Mg/Ml 1 Ml Syringe IVP 1 mg Q3HR PRN Administration Severe Pain (Scale 7 to 10) Sodium Chloride 1,000 mls @ 75 mls/hr 09/11/22 21:00 09/11/22 21:41 Saline 0.9% IV 75 mls/hr .[id number] OUMOU Administration Naloxone HCl 0.2 mg 09/11/22 20:47 Naloxone 0.4 Mg/Ml 1 Ml Vial IV Q2M PRN Opioid Reversal Ondansetron HCl 4 mg 09/11/22 20:47 09/11/22 22:49 Ondansetron 4 Mg/2 Ml Vial IVP 4 mg Q8HR PRN Administration Nausea And Vomiting Intake and Output 09/11/22 09/12/22 09/12/22 22:59 06:59 14:59 Other: Weight 145.15 kg 09/12/22 07:15 09/12/22 07:15
--- NOTE | 2022-09-12 18:33 | P.HPIM ---
History of Present Illness H&P Date: 09/12/22 Chief Complaint: Multiple symptoms This is a pleasant 61-year-old patient follows Dr. Berg. Chronic stable medical conditions include atrial fibrillation, COPD, GERD, hyperlipidemia, hypertension, obstructive sleep apnea uses CPAP, hypothyroid, uses 3 L of oxygen during the daytime and 6 L at night, had breast cancer 4 years ago treated with chemoradiation and partial mastectomy, kidney stones, anxiety depression. Patient been a long-standing smoker and quit about 9 months ago started back a few cigarettes a day recently. Recently in the hospital from September 06 through September 10. Was admitted with variable atrial fibrillation rate of 180s down to 40s. Cardiac catheterization done on September 07 showed 50% circumferential lesion same as before. Discharged on adjusted in lieu of Cardizem CD at 180 mg a day and Toprol-XL 100 mg day. Patient also got was felt to be viral gastroenteritis that improved. Also treated for COPD exacerbation. Patient did well initially at home, the day after returning. Yesterday there was some chest pressure some headache significant dizziness nausea heart racing. Patient also smoked a couple cigarettes. Also started of her diarrhea has had about 5 bowel movements since yesterday. Some upper abdominal pain. EKG in the ER showed a A. fib with a rate of 44. No fever no chills. Review of systems: GEN.: Tired EYES: None HEENT: None NECK: None RESPIRATORY: As above CARDIOVASCULAR: As above GASTROINTESTINAL: As above GENITOURINARY: None MUSCULOSKELETAL: None LYMPHATICS: None HEMATOLOGICAL: None PSYCHIATRY: Anxious NEUROLOGICAL: None Past medical history to include: Atrial fibrillation, COPD, GERD, hyperlipidemia, hypertension, after sleep apnea uses CPAP, hypothyroid, oxygen 3 history the daytime is 6 L at night, breast cancer 4 years ago with treated with chemoradiation and partial mastectomy, kidn ey stones, anxiety depression Social history: Patient smoked for about 40 years back and a half a day average, he stopped 9 months ago not back to few cigarettes a day. Was using marijuana and abuse up in about a month ago for a pain started feeling weird, then discontinued. Physical examination: VITAL SIGNS: 98.1, 53, 18, 94/44, under percent room air GENERAL: BMI 51.6, sitting up in bed awake, tired EYES: Pupils equal. Conjunctiva normal. HEENT: External appearance of nose and ears normal, oral cavity grossly normal. NECK: JVD not raised; masses not palpable. HEART: First and second heart sounds are normal; no edema. LUNGS: Respiratory rate increased, diminished breath . ABDOMEN: Soft, mild tenderness, liver spleen not palpable, no masses palpable. PSYCH: Alert and oriented x3; mood and affect normal. MUSCULOSKELETAL:No Clubbing/cyanosis;muscles-grossly intact NEUROLOGICAL: Cranial nerves grossly intact; no facial asymmetry, power and sensation grossly intact. LYMPHATICS: No lymph nodes palpable in the axilla and neck INVESTIGATIONS, reviewed in the clinical context: 09/12/2022: White count 9.8 hemoglobin 8.1 platelets 378 potassium 4.7 BUN 26 creatinine 1.24 09/11/2022: White count 9.1 hemoglobin 8.2 potassium 5.1 BUN 28 creatinine 1.6 to Recent studies: 2-D echocardiogram: EF 50 and 55%. 09/10/2022: Potassium 4.3 creatinine 0.91 Assessment and plan: - atrial fibrillation with a very variable heart rate. With heart rate down to the 40s. Telemetry. Cardizem CD cutback to 120 mg a day . Toprol-XL 100 mg a day . Eliquis -Chronic congestive heart failure exacerbation from diastolic dysfunction EF 50- 55%, stable Hold Lasix because of acute kidney injury -Acute kidney injury likely prerenal from being on Lasix and diarrhea Creatinine was 0.9 on 09/10/2022. On admission 1.24. Gentle hydration. Hold Cozaar -Acute gastroenteritis, could be bacterial emperic treatment with Flagyl and Cipro. For liquid diet -Nonobstructive CAD with 50% circumflex lesion, per cardiac cath recently - COPD exacerbation in a current smoker: Symbicort -Nicotine dependence, smoker Nicotine patch -Morbid obesity, BMI 51.6 Weight loss measures -Essential hypertension Toprol-XL Cardizem CD -Depression Prozac, BuSpar -Hypothyroid Synthroid -GERD PPI Patient started empirically on Flagyl and Cipro. Cardizem CD cutback to 120 mg a day. Resume home medications. Telemetry. Cardiology consulted. Full liquid diet. Discussed with patient. Past Medical History Past Medical History: Atrial Fibrillation, Cancer, COPD, GERD/Reflux, Hyperlipidemia, Hypertension, Sleep Apnea/CPAP/BIPAP, Thyroid Disorder Additional Past Medical History / Comment(s): O2 use 24hrs per day, 3L/NC during the day, 6L at night. Hx left breast cancer 4 yrs ago treated with Chemo/Radiation and partial Mastectomy. NO BLOOD PRESSURES/LAB DRAWS ON LEFT ARM. Hx kidney stones. Hx kidney failure after Hysterectomy, no problems since. History of Any Multi-Drug Resistant Organisms: None Reported Past Surgical History: Cholecystectomy, Hysterectomy Additional Past Surgical History / Comment(s): Left partial mastectomy and lymph nodes removed, D&C's, Radioactive Iodine Treatment for Thyroid. Past Anesthesia/Blood Transfusion Reactions: Postoperative Nausea & Vomiting (PONV) Past Psychological History: Anxiety, Depression Smoking Status: Current every day smoker Past Alcohol Use History: Rare Past Drug Use History: None Reported - Past Family History Mother Family Medical History: Cancer Father Family Medical History: Cancer Brother(s) Family Medical History: Cancer Medications and Allergies Home Medications Medication Instructions Recorded Confirmed Type Apixaban [Eliquis] 5 mg PO BID 10/01/21 09/11/22 History Atorvastatin [Lipitor] 20 mg PO HS 10/01/21 09/11/22 History FLUoxetine HCL [PROzac] 40 mg PO DAILY 10/01/21 09/11/22 History Levothyroxine Sodium [Synthroid] 137 mcg PO DAILY 10/01/21 09/11/22 History Omeprazole 20 mg PO DAILY 10/01/21 09/11/22 History Albuterol Sulfate [Albuterol 2 puff PO RT-Q6H PRN 09/05/22 09/11/22 History Sulfate Hfa] Furosemide [Lasix] 40 mg PO DAILY 09/05/22 09/11/22 History Losartan Potassium [Cozaar] 100 mg PO DAILY 09/05/22 09/11/22 History Potassium Citrate [Potassium 10 meq PO DAILY 09/05/22 09/11/22 History Citrate ER] busPIRone HCl [Buspar] 10 mg PO BID 09/05/22 09/11/22 History Diltiazem Cd [Cardizem CD] 180 mg PO DAILY #30 cap 09/10/22 09/11/22 Rx Famotidine [Pepcid] 20 mg PO BID #60 tab 09/10/22 09/11/22 Rx Metoprolol Succinate (ER) [Toprol 100 mg PO DAILY #0 09/10/22 09/11/22 Rx XL] Nicotine 14Mg/24Hr Patch [Habitrol] 1 patch TRANSDERM DAILY #14 patch 09/10/22 09/11/22 Rx Budesonide/Formoterol Fumarate 1 puff INHALATION RT-BID 09/11/22 09/11/22 History [Symbicort 160-4.5 Mcg Inhaler] Allergies Allergy/AdvReac Type Severity Reaction Status Date / Time morphine Allergy Anaphylaxis Verified 09/11/22 21:56 Penicillins Allergy Nausea & Verified 09/11/22 21:56 Vomiting Physical Exam Vitals: Vital Signs Temp Pulse Pulse Resp BP Pulse Ox 09/12/22 09:42 92 18 103/78 97 09/12/22 09:00 85 18 96 09/12/22 07:23 98.0 F 78 18 110/71 100 09/12/22 02:13 71 18 95 09/12/22 01:05 68 18 109/58 95 09/11/22 23:04 70 18 112/63 95 09/11/22 19:46 119/53 09/11/22 19:09 50 L 16 100/59 100 09/11/22 17:39 53 L 16 83/40 100 09/11/22 16:42 50 L 09/11/22 16:36 98.1 F 53 L 18 94/44 100 Intake and Output 09/11/22 09/12/22 09/12/22 22:59 06:59 14:59 Other: Weight 145.15 kg Results CBC & Chem 7: 09/12/22 07:15 09/12/22 07:15 Labs: Abnormal Lab Results - Last 24 Hours (Table) 09/11/22 09/11/22 09/12/22 Range/Units 16:46 16:46 07:15 WBC 11.1 H (3.8-10.6) k/uL RBC 3.18 L 3.19 L (3.80-5.40) m/uL Hgb 8.2 L 8.1 L (11.4-16.0) gm/dL Hct 28.4 L 29.4 L (34.0-46.0) % MCHC 29.1 L 27.6 L (31.0-37.0) g/dL Plt Count 551 H (150-450) k/uL Neutrophils # 8.3 H (1.3-7.7) k/uL BUN 28 H (7-17) mg/dL Creatinine 1.62 H (0.52-1.04) mg/dL Glucose 119 H (74-99) mg/dL Calcium 8.3 L (8.4-10.2) mg/dL Total Protein 6.1 L (6.3-8.2) g/dL 09/12/22 Range/Units 07:15 WBC (3.8-10.6) k/uL RBC (3.80-5.40) m/uL Hgb (11.4-16.0) gm/dL Hct (34.0-46.0) % MCHC (31.0-37.0) g/dL Plt Count (150-450) k/uL Neutrophils # (1.3-7.7) k/uL BUN 26 H (7-17) mg/dL Creatinine 1.24 H (0.52-1.04) mg/dL Glucose (74-99) mg/dL Calcium 8.0 L (8.4-10.2) mg/dL Total Protein (6.3-8.2) g/dL
[2022-09-12] MEDS: ATORVASTATIN 20 MG TAB PO SCH (20:18)
[2022-09-13] MEDS: PANTOPRAZOLE 40 MG TABLET PO SCH (06:18)
[2022-09-13] MEDS: LEVOTHYROXINE 137 MCG TAB PO SCH (06:18)
[2022-09-13] MEDS: SYMBICORT 160-4.5 MCG INHALER INHALATION SCH ×2 (07:46→21:08)
[2022-09-13] MEDS: CIPROFLOXACIN HCL 500 MG TAB PO SCH ×2 (09:05→21:02)
[2022-09-13] MEDS: METOPROLOL SUCCINATE (ER) 100 MG TAB.ER.24H PO SCH (09:05)
[2022-09-13] MEDS: FAMOTIDINE 20 MG TAB PO SCH ×2 (09:05→21:02)
[2022-09-13] MEDS: busPIRone HCl 10 MG TAB PO SCH ×2 (09:05→21:02)
[2022-09-13] MEDS: metroNIDAZOLE 500 MG TAB PO SCH ×3 (09:05→21:02)
[2022-09-13] MEDS: DILTIAZEM CD 120 MG CAP.ER.24H PO SCH (09:05)
[2022-09-13] MEDS: FLUoxetine HCL 20 MG CAP PO SCH (09:05)
[2022-09-13] MEDS: APIXABAN 5 MG TAB PO SCH ×2 (09:05→21:01)
[2022-09-13] MEDS: NICOTINE 14MG/24HR PATCH TRANSDERM SCH (09:06)
[2022-09-13 12:30] LABS: Calcium 8.3 mg/dL (8.4-10.2)
[2022-09-13 12:34] LABS: Potassium 5.9 mmol/L (3.5-5.1)
--- NOTE | 2022-09-13 13:44 | P.PN ---
Subjective Progress Note Date: 09/13/22 HISTORY OF PRESENT ILLNESS: This is a pleasant 61-year-old female past medical history significant for mild to moderate coronary artery disease, COPD, congestive heart failure, nonischemic cardiomyopathy, persistent atrial fibrillation, sick sinus syndrome, hypertension, dyslipidemia, former smoker, obstructive sleep apnea, hypothyroidism. She follows in the office with Dr. Sharp. Patient was recently hospitalized and discharged on 09/10, treated for chest discomfort status post cardiac catheterization with stable coronary artery disease with 50% circumflex stenosis unchanged, possible syncopal episode while having a bowel movement, persistent atrial fibrillation possible tachybradycardia syndrome. Patient states that she went home on 09/10 and was in her normal state of health until yesterday when she became dizzy with back pain, occasional chest pain. She states she has chronic diarrhea that's on and off. Patient presented with initial heart rate of 42 with blood pressure 80 systolic. DIAGNOSTICS * EKG reveals atrial fibrillation with slow ventricular response, heart rate 44 * Cardiac catheterization 08/2022 revealed LAD 1020 percent stenosis, mid circu mflex 50% stenosis * Echocardiogram 08/2022 revealed EF 50-55%, mild pulmonary hypertension, mild tricuspid regurgitation * Chest xray no active cardiopulmonary disease. Cardiomegaly. No change from old exam. * CT angiogram of the aorta with no evidence of thoracic or upper abdominal aortic aneurysm or dissection. There is cardiomegaly. Atherosclerotic vascular disease. No evidence of pulmonary embolism. No suspicious pulmonary mass. Large low density right adrenal mass consistent with benign disease. Left ovarian cyst. * Laboratory reviewed, WBC 9.8, hemoglobin 8.1, platelets 378, sodium 137, potassium 4.7, BUN 26, serum creatinine 1.24 presented with creatinine of 1.62, troponin negative 1, proBNP 861 * Current home cardiac medications include eliquis 5 mg twice daily, atorvastati n 20 mg nightly, Cardizem CD 180 mg daily, Lasix 40 mg daily, losartan 100 mg daily, Toprol-XL 100 mg daily 09/13/2022 Patient examined this morning at the bedside. Patient denies SOB. She denies chest pain or pressure. Telemetry reveals atrial fibrillation with controlled ventricular rates in the 70s. BMP from this morning is currently pending. PHYSICAL EXAM: VITAL SIGNS: Reviewed. GENERAL: Well-developed in no acute distress. NECK: Supple. No JVD or thyromegaly LUNGS: Respirations even and unlabored. Lungs essentially clear to auscultation bilaterally. HEART: Irregular rate and rhythm. S1 and S2 heard. EXTREMITIES: Normal range of motion. No clubbing or cyanosis. Peripheral pulses intact. No lower extremity edema ASSESSMENT: Bradycardia Hypotension secondary to diuretics, ARB and chronic diarrhea Acute kidney injury possibly related to diuretics, ARB and chronic diarrhea Chest discomfort, with exertion, acute coronary syndrome ruled out Chronic diarrhea Persistent atrial fibrillation, on Eliquis outpatient, slow ventricular response, rule out tachy-katharina syndrome COPD Leukocytosis Anemia Chronic heart failure with preserved ejection fraction History of nonischemic cardiomyopathy History of hypertension Dyslipidemia Former smoker Obstructive sleep apnea Hypothyroidism PLAN: Continue current dose of Cardizem and Metoprolol Continue to hold losartan on discharge Resume Lasix upon discharge Continue telemetry monitoring Further recommendations pending patient course Patient may be discharged home today per Dr. Mario Patient to follow up outpatient with Dr. Sharp Nurse practitioner note has been reviewed by physician. Signing provider agrees with the documented findings, assessment, and plan of care. Objective - Vital Signs Vital signs: Vital Signs Temp 97.6 F 09/13/22 08:54 Pulse 87 09/13/22 08:54 Resp 16 09/13/22 08:54 BP 116/68 09/13/22 08:54 Pulse Ox 100 09/13/22 08:54 FiO2 Intake & Output 09/12/22 09/13/22 09/13/22 18:59 06:59 18:59 Intake Total 600 0 Output Total 500 Balance 100 0 Intake: Intake, IV Titration 600 Amount Sodium Chloride 0.9% 1, 600 000 ml @ 75 mls/hr IV . [id number] [facility] Rx#:[id number] Oral 0 Output: Urine 500 Other: Voiding Method Bedside Commode Bedside Commode Bedside Commode # Voids 2 1 # Bowel Movements 1 - Labs CBC & Chem 7: 09/12/22 07:15 09/13/22 11:48
--- NOTE | 2022-09-13 14:49 | P.PN ---
Progress Note - Text Progress Note Date: 09/13/22 Chief Complaint: Multiple symptoms This is a pleasant 61-year-old patient follows Dr. Berg. Chronic stable medical conditions include atrial fibrillation, COPD, GERD, hyperlipidemia, hypertension, obstructive sleep apnea uses CPAP, hypothyroid, uses 3 L of oxygen during the daytime and 6 L at night, had breast cancer 4 years ago treated with chemoradiation and partial mastectomy, kidney stones, anxiety depression. Patient been a long-standing smoker and quit about 9 months ago started back a few cigarettes a day recently. Recently in the hospital from September 06 through September 10. Was admitted with variable atrial fibrillation rate of 180s down to 40s. Cardiac catheterization done on September 07 showed 50% circumferential lesion same as before. Discharged on adjusted in lieu of Cardizem CD at 180 mg a day and Toprol-XL 100 mg day. Patient also got was felt to be viral gastroenteritis that improved. Also treated for COPD exacerbation. Patient did well initially at home, the day after returning. Yesterday there was some chest pressure some headache significant dizziness nausea heart racing. Patient also smoked a couple cigarettes. Also started of her diarrhea has had about 5 bowel movements since yesterday. Some upper abdominal pain. EKG in the ER showed a A. fib with a rate of 44. No fever no chills. 09/13/2022: Diarrhea better. A. fib better control round 100. No change in medications. Potassium this morning she to be 5.9. Repeat stat potassium ordered. Diet advanced. . Creatinine better. Active Medications Acetaminophen (Acetaminophen Tab 325 Mg Tab) 650 mg PO Q6HR PRN PRN Reason: Mild Pain or Fever > 100.5 Last Admin: 09/12/22 09:48 Dose: 650 mg Apixaban (Apixaban 5 Mg Tab) 5 mg PO BID [facility]; Protocol Last Admin: 09/13/22 09:05 Dose: 5 mg Atorvastatin Calcium (Atorvastatin 20 Mg Tab) 20 mg PO HS [facility] Last Admin: 09/12/22 20:18 Dose: 20 mg Budesonide/Formoterol Fumarate (Symbicort 160-4.5 Mcg Inhaler) 1 puff INHALATION RT-BID [facility] Last Admin: 09/13/22 07:46 Dose: Not Given Buspirone HCl (Buspirone Hcl 10 Mg Tab) 10 mg PO BID [facility] Last Admin: 09/13/22 09:05 Dose: 10 mg Ciprofloxacin (Ciprofloxacin Hcl 500 Mg Tab) 500 mg PO BID [facility]; Protocol Last Admin: 09/13/22 09:05 Dose: 500 mg Diltiazem HCl (Diltiazem Cd 120 Mg Cap.Er.24h) 120 mg PO DAILY [facility] Last Admin: 09/13/22 09:05 Dose: 120 mg Famotidine (Famotidine 20 Mg Tab) 20 mg PO BID [facility] Last Admin: 09/13/22 09:05 Dose: 20 mg Fluoxetine HCl (Fluoxetine Hcl 20 Mg Cap) 40 mg PO DAILY [facility] Last Admin: 09/13/22 09:05 Dose: 40 mg Sodium Chloride (Saline 0.9%) 1,000 mls @ 75 mls/hr IV .[id number] [facility] Last Admin: 09/12/22 20:25 Dose: 75 mls/hr Levothyroxine Sodium (Levothyroxine 137 Mcg Tab) 137 mcg PO DAILY@0630 [facility] Last Admin: 09/13/22 06:18 Dose: 137 mcg Metoprolol Succinate (Metoprolol Succinate (Er) 100 Mg Tab.Er.24h) 100 mg PO DAILY [facility] Last Admin: 09/13/22 09:05 Dose: 100 mg Metronidazole (Metronidazole 500 Mg Tab) 500 mg PO TID [facility]; Protocol Last Admin: 09/13/22 09:05 Dose: 500 mg Naloxone HCl (Naloxone 0.4 Mg/Ml 1 Ml Vial) 0.2 mg IV Q2M PRN PRN Reason: Opioid Reversal Nicotine (Nicotine 14mg/24hr Patch) 1 patch TRANSDERM DAILY [facility] Last Admin: 09/13/22 09:06 Dose: Not Given Ondansetron HCl (Ondansetron 4 Mg/2 Ml Vial) 4 mg IVP Q8HR PRN PRN Reason: Nausea And Vomiting Last Admin: 09/11/22 22:49 Dose: 4 mg Pantoprazole Sodium (Pantoprazole 40 Mg Tablet) 40 mg PO [id number] [facility] Last Admin: 09/13/22 06:18 Dose: 40 mg Past medical history to include: Atrial fibrillation, COPD, GERD, hyperlipidemia, hypertension, after sleep apnea uses CPAP, hypothyroid, oxygen 3 history the daytime is 6 L at night, breast cancer 4 years ago with treated with chemoradiation and partial mastectomy, kidney stones, anxiety depression Social history: Patient smoked for about 40 years back and a half a day average, he stopped 9 months ago not back to few cigarettes a day. Was using marijuana and abuse up in about a month ago for a pain started feeling weird, then discontinued. Physical examination: VITAL SIGNS: 98.2, 105, 18, 109/79, 87% on 3 L GENERAL: Laying in bed, awake, comfortable EYES: Pupils equal. Conjunctiva normal. HEENT: External appearance of nose and ears normal, oral cavity grossly normal. NECK: JVD not raised; masses not palpable. HEART: Heart sounds irregular no edema. LUNGS: Respiratory rate increased, diminished breath . ABDOMEN: Soft, mild tenderness, liver spleen not palpable, no masses palpable. PSYCH: Alert and oriented x3; mood and affect normal. MUSCULOSKELETAL:No Clubbing/cyanosis;muscles-grossly intact INVESTIGATIONS, reviewed in the clinical context: 09/12/2022: White count 9.8 hemoglobin 8.1 platelets 378 potassium 4.7 BUN 26 creatinine 1.24 09/11/2022: White count 9.1 hemoglobin 8.2 potassium 5.1 BUN 28 creatinine 1.6 to Recent studies: 2-D echocardiogram: EF 50 and 55%. 09/10/2022: Potassium 4.3 creatinine 0.91 Assessment and plan: - atrial fibrillation with a very variable heart rate. Heart rate better controlled. Telemetry. Cardizem CD cutback to 120 mg a day . Toprol-XL 100 mg a day . Eliquis -Chronic congestive heart failure exacerbation from diastolic dysfunction EF 50- 55%, stable Hold Lasix because of acute kidney injury -Acute kidney injury likely prerenal from being on Lasix and diarrhea: Better Creatinine was 0.9 on 09/10/2022. On admission 1. 6. Gentle hydration. Hold Cozaar and Lasix -Acute gastroenteritis, could be bacterial: Improving emperic treatment with Flagyl and Cipro. Advance diet -Nonobstructive CAD with 50% circumflex lesion, per cardiac cath recently - COPD exacerbation in a current smoker: Symbicort -Nicotine dependence, smoker Nicotine patch -Morbid obesity, BMI 51.6 Weight loss measures -Essential hypertension Toprol-XL Cardizem CD -Depression Prozac, BuSpar -Hypothyroid Synthroid -GERD PPI DC IV fluids. Complete 3 day course of Flagyl and Cipro. Repeat stat potassium. Discussed with patient.
[2022-09-13] MEDS: ACETAMINOPHEN TAB 325 MG TAB PO PRN ×2 (15:16→21:02)
[2022-09-13] MEDS: SODIUM CHLORIDE 0.9% 1,000 ML IV SCH (15:16)
[2022-09-13 15:57] LABS: Calcium 8.6 mg/dL (8.4-10.2); Potassium 5.4 mmol/L (3.5-5.1)
[2022-09-13] MEDS ORDERED: Acetaminophen-Codeine 300-30mg TAB PO STA (16:11)
[2022-09-13] MEDS ORDERED: SODIUM ZIRCONIUM CYCLOSILICATE 10 GM PACKET PO STA (16:13)
[2022-09-13] MEDS: ONDANSETRON 4 MG/2 ML VIAL IVP PRN (17:37)
[2022-09-13] MEDS: ATORVASTATIN 20 MG TAB PO SCH (21:02)
[2022-09-13] MEDS ORDERED: SODIUM ZIRCONIUM CYCLOSILICATE 10 GM PACKET PO ONE (22:15)
[2022-09-14 03:57] VITALS: TEMP 97.7
[2022-09-14] MEDS: PANTOPRAZOLE 40 MG TABLET PO SCH (06:05)
[2022-09-14] MEDS: LEVOTHYROXINE 137 MCG TAB PO SCH (06:05)
[2022-09-14 07:59] LABS: Potassium 4.8 mmol/L (3.5-5.1)
[2022-09-14] MEDS: SYMBICORT 160-4.5 MCG INHALER INHALATION SCH (08:05)
[2022-09-14] MEDS ORDERED: FUROSEMIDE 40 MG TAB PO SCH (09:00)
[2022-09-14] MEDS: METOPROLOL SUCCINATE (ER) 100 MG TAB.ER.24H PO SCH (09:04)
[2022-09-14] MEDS: metroNIDAZOLE 500 MG TAB PO SCH ×2 (09:04→15:44)
[2022-09-14] MEDS: DILTIAZEM CD 120 MG CAP.ER.24H PO SCH (09:04)
[2022-09-14] MEDS: CIPROFLOXACIN HCL 500 MG TAB PO SCH (09:04)
[2022-09-14] MEDS: FLUoxetine HCL 20 MG CAP PO SCH (09:04)
[2022-09-14] MEDS: FAMOTIDINE 20 MG TAB PO SCH (09:04)
[2022-09-14] MEDS: NICOTINE 14MG/24HR PATCH TRANSDERM SCH (09:04)
[2022-09-14] MEDS: busPIRone HCl 10 MG TAB PO SCH (09:04)
[2022-09-14] MEDS: APIXABAN 5 MG TAB PO SCH (09:04)
[2022-09-14 09:12] VITALS: RESP 17
--- NOTE | 2022-09-14 10:29 | P.PN ---
Subjective Progress Note Date: 09/14/22 HISTORY OF PRESENT ILLNESS: This is a pleasant 61-year-old female past medical history significant for mild to moderate coronary artery disease, COPD, congestive heart failure, nonischemic cardiomyopathy, persistent atrial fibrillation, sick sinus syndrome, hypertension, dyslipidemia, former smoker, obstructive sleep apnea, hypothyroidism. She follows in the office with Dr. Sharp. Patient was recently hospitalized and discharged on 09/10, treated for chest discomfort status post cardiac catheterization with stable coronary artery disease with 50% circumflex stenosis unchanged, possible syncopal episode while having a bowel movement, persistent atrial fibrillation possible tachybradycardia syndrome. Patient states that she went home on 09/10 and was in her normal state of health until yesterday when she became dizzy with back pain, occasional chest pain. She states she has chronic diarrhea that's on and off. Patient presented with initial heart rate of 42 with blood pressure 80 systolic. DIAGNOSTICS * EKG reveals atrial fibrillation with slow ventricular response, heart rate 44 * Cardiac catheterization 08/2022 revealed LAD 1020 percent stenosis, mid circu mflex 50% stenosis * Echocardiogram 08/2022 revealed EF 50-55%, mild pulmonary hypertension, mild tricuspid regurgitation * Chest xray no active cardiopulmonary disease. Cardiomegaly. No change from old exam. * CT angiogram of the aorta with no evidence of thoracic or upper abdominal aortic aneurysm or dissection. There is cardiomegaly. Atherosclerotic vascular disease. No evidence of pulmonary embolism. No suspicious pulmonary mass. Large low density right adrenal mass consistent with benign disease. Left ovarian cyst. * Laboratory reviewed, WBC 9.8, hemoglobin 8.1, platelets 378, sodium 137, potassium 4.7, BUN 26, serum creatinine 1.24 presented with creatinine of 1.62, troponin negative 1, proBNP 861 * Current home cardiac medications include eliquis 5 mg twice daily, atorvastati n 20 mg nightly, Cardizem CD 180 mg daily, Lasix 40 mg daily, losartan 100 mg daily, Toprol-XL 100 mg daily 09/13/2022 Patient examined this morning at the bedside. Patient denies SOB. She denies chest pain or pressure. Telemetry reveals atrial fibrillation with controlled ventricular rates in the 70s. BMP from this morning is currently pending. 09/14/2022 Patient examined this morning to bedside. Patient denies chest pain or pressure. She denies shortness of breath. Telemetry reveals atrial fibrillation with controlled ventricular rates. Creatinine 0.99. PHYSICAL EXAM: VITAL SIGNS: Reviewed. GENERAL: Well-developed in no acute distress. NECK: Supple. No JVD or thyromegaly LUNGS: Respirations even and unlabored. Lungs essentially clear to auscultation bilaterally. HEART: Irregular rate and rhythm. S1 and S2 heard. EXTREMITIES: Normal range of motion. No clubbing or cyanosis. Peripheral pulses intact. No lower extremity edema ASSESSMENT: Bradycardia Hypotension secondary to diuretics, ARB and chronic diarrhea Acute kidney injury possibly related to diuretics, ARB and chronic diarrhea Chest discomfort, with exertion, acute coronary syndrome ruled out Chronic diarrhea Persistent atrial fibrillation, on Eliquis outpatient, slow ventricular response, rule out tachy-katharina syndrome COPD Leukocytosis Anemia Chronic heart failure with preserved ejection fraction History of nonischemic cardiomyopathy History of hypertension Dyslipidemia Former smoker Obstructive sleep apnea Hypothyroidism PLAN: Continue current dose of Cardizem and Metoprolol Continue to hold losartan on discharge Resume Lasix Continue telemetry monitoring Further recommendations pending patient course Patient may be discharged home today Patient to follow up outpatient with Dr. Sharp We will sign off. Please reconsult if needed. Nurse practitioner note has been reviewed by physician. Signing provider agrees with the documented findings, assessment, and plan of care. Objective - Vital Signs Vital signs: Vital Signs Temp 97.7 F 09/14/22 03:57 Pulse 76 09/14/22 09:03 Resp 17 09/14/22 09:10 BP 115/57 09/14/22 09:03 Pulse Ox 100 09/14/22 09:03 FiO2 Intake & Output 09/13/22 09/14/22 09/14/22 18:59 06:59 18:59 Intake Total 118 10 240 Output Total 800 Balance 118 -790 240 Intake: IV 10 0.9 10 Oral 118 240 Output: Urine 800 Other: Voiding Method Bedside Commode Bedside Commode Bedside Commode # Voids 1 - Labs CBC & Chem 7: 09/12/22 07:15 09/14/22 07:20 Labs: Abnormal Lab Results - Last 24 Hours (Table) 09/13/22 09/13/22 09/14/22 Range/Units 11:48 15:20 07:20 Potassium 5.9 H 5.4 H (3.5-5.1) mmol/L BUN 19 H (7-17) mg/dL Creatinine 1.08 H (0.52-1.04) mg/dL Glucose 103 H 107 H (74-99) mg/dL Calcium 8.3 L 8.0 L (8.4-10.2) mg/dL
[2022-09-14 11:21] VITALS: BP 112/67; PULSE 75
== END 2022-09-14 16:05 | disposition home or self-care (01) | DRG 308 ==
LOC: EC 16:34 → 3SCARD 22:35
PROVIDERS: ADMIT Hospitalist; ATTEND Hospitalist
DX: I49.5 Sick sinus syndrome (principal); I50.33 Acute on chronic diastolic (congestive) heart failure; I48.19 Other persistent atrial fibrillation; N17.9 Acute kidney failure, unspecified; J44.1 Chronic obstructive pulmonary disease with (acute) exacerbation; Z68.43 Body mass index [BMI] 50.0-59.9, adult; I42.8 Other cardiomyopathies; I11.0 Hypertensive heart disease with heart failure; I95.9 Hypotension, unspecified; E66.01 Morbid (severe) obesity due to excess calories; E27.9 Disorder of adrenal gland, unspecified; E03.9 Hypothyroidism, unspecified; K21.9 Gastro-esophageal reflux disease without esophagitis; E78.5 Hyperlipidemia, unspecified; I25.10 Atherosclerotic heart disease of native coronary artery without angina pectoris; E86.0 Dehydration; N83.202 Unspecified ovarian cyst, left side; G47.33 Obstructive sleep apnea (adult) (pediatric); F32.A Depression, unspecified; F41.9 Anxiety disorder, unspecified; T50.2X5A Adverse effect of carbonic-anhydrase inhibitors, benzothiadiazides and other diuretics, initial encounter; D64.9 Anemia, unspecified; K52.9 Noninfective gastroenteritis and colitis, unspecified; K57.90 Diverticulosis of intestine, part unspecified, without perforation or abscess without bleeding; F17.210 Nicotine dependence, cigarettes, uncomplicated; Z79.01 Long term (current) use of anticoagulants; Z79.51 Long term (current) use of inhaled steroids; Z79.890 Hormone replacement therapy; Z79.899 Other long term (current) drug therapy; Z85.3 Personal history of malignant neoplasm of breast; Z92.21 Personal history of antineoplastic chemotherapy; Z92.3 Personal history of irradiation; Z87.442 Personal history of urinary calculi; Z88.5 Allergy status to narcotic agent; Z88.0 Allergy status to penicillin
CPT/HCPCS: 36415; 71046; 71275; 74174; 80048; 80053; 83735; 83880; 84443; 84484; 85025; 85379; 85610; 85730; 93005; 94640; 96361; 96374; 96375; 96376; 99285

== ENCOUNTER → 2022-10-29 | Outpatient (CLI) | payer OTHER ==
[2022-10-29 23:03] LABS: Basophils # (A) 0.05 X 10*3/uL (0.00-0.10); Basophils % (A) 0.5 %; Eosinophils # (A) 0.14 X 10*3/uL (0.04-0.35); Eosinophils % (A) 1.3 %; HCT 29.1 % (37.2-46.3); HGB 7.6 g/dL (12.0-15.0); Immature Grans, Automated 1.2 %; Lymphocytes # (A) 1.82 X 10*3/uL (0.90-5.00); Lymphocytes % (A) 16.7 %; MCHC 26.1 g/dL (32.0-37.0); MCV 87.9 fL (80.0-97.0); Mean Platelet Volume 8.9 fL (9.5-12.2); Monocytes # (A) 0.89 X 10*3/uL (0.20-1.00); Monocytes % (A) 8.2 %; NRBC Per 100 WBC 0 /100 WBCS (0.0-0.0); Neutrophils # (A) 7.86 X 10*3/uL (1.80-7.70); Neutrophils % (A) 72.1 %; Platelet Count 539 X 10*3/uL (140-440); RBC 3.31 X 10*6/uL (4.10-5.20); RDW 17.3 % (11.5-14.5); WBC 10.89 X 10*3/uL (4.50-10.00)
[2022-10-30 01:10] LABS: African American GFR (CKD) 70.4 (60.0-200.0); Blood Urea Nitrogen 17.4 mg/dL (9.0-27.0); Non-African American GFR(CKD) 60.8 (60.0-200.0); Potassium 5.1 mmol/L (3.5-5.5)
== END | disposition home or self-care (01) ==
LOC: LABPAT 13:52
PROVIDERS: ATTEND Internal Medicine Clinical Cardiac Electrophysiology
DX: Z01.812 Encounter for preprocedural laboratory examination (principal); I42.8 Other cardiomyopathies; R00.1 Bradycardia, unspecified
CPT/HCPCS: 80051; 82565; 84520; 85025

== ENCOUNTER → 2022-11-04 | Day surgery (SDC) | payer OTHER ==
[2022-10-29 14:41] VITALS: BMI 53.2
[~2022-11-04] MED LIST changes: -ALPRAZolam 0.25 MG TAB PO PRN; -ALPRAZolam 0.5 MG TAB PO PRN; -ASPIRIN 325 MG TAB PO ONE; -ATORVASTATIN 80 MG TAB PO ONE; +CLINDAMYCIN 600 MG in SODIUM CHLORIDE 0.9% 250 ML IRRIGATION PRN; +CLINDAMYCIN 900 MG in DEXTROSE 5% IN WATER 50 ML IVPB PRN; -HEPARIN SODIUM,PORCINE 10,000 UNIT in SODIUM CHLORIDE 0.9% 1,000 ML IRRIGATION PRN; -HEPARIN SODIUM,PORCINE 2,500 UNIT in SODIUM CHLORIDE 0.9% 250 ML IRRIGATION PRN; +LACTATED RINGERS 1,000 ML IV SCH; +MIDAZOLAM 2 MG/2 ML VIAL IV STA; -NITROGLYCERIN SL TABS 0.4 MG TAB SUBLINGUAL PRN; +SODIUM CHLORIDE 0.9% 1,000 ML IV SCH; -SODIUM CHLORIDE 0.9% 1,000 ML in EMPTY BAG 1 BAG IV SCH
[2022-11-04 15:53] VITALS: BP 130/74; PULSE 93; RESP 18; TEMP 98.5
== END ==
LOC: CATHEP 14:08
PROVIDERS: ATTEND Internal Medicine Clinical Cardiac Electrophysiology
DX: I50.22 Chronic systolic (congestive) heart failure (principal); I42.9 Cardiomyopathy, unspecified; I49.5 Sick sinus syndrome; Z88.0 Allergy status to penicillin; Z88.5 Allergy status to narcotic agent; Z79.02 Long term (current) use of antithrombotics/antiplatelets; Z79.891 Long term (current) use of opiate analgesic; Z79.899 Other long term (current) drug therapy

== ENCOUNTER 2022-11-16 17:56 | Inpatient (IN) | payer OTHER ==
--- NOTE | 2022-11-16 18:34 | ED ---
General Adult HPI - General Chief complaint: Shortness of Breath Stated complaint: SOB Time Seen by Provider: 11/16/22 18:20 Source: patient, EMS, RN notes reviewed Mode of arrival: EMS Limitations: no limitations - History of Present Illness Initial comments: Patient is a pleasant 61-year-old female presenting to the emergency department with difficulty breathing. Onset of symptoms was several days ago. Patient does have some tightness in her chest. Minimal cough. Patient feels like she is swelling. Patient does have history of similar symptoms previously associated with CHF - Related Data Home Medications Medication Instructions Recorded Confirmed Apixaban [Eliquis] 5 mg PO BID 10/01/21 11/04/22 Atorvastatin [Lipitor] 20 mg PO HS 10/01/21 11/04/22 Levothyroxine Sodium [Synthroid] 137 mcg PO DAILY 10/01/21 11/04/22 Omeprazole 20 mg PO DAILY 10/01/21 11/04/22 Furosemide [Lasix] 40 mg PO DAILY 09/05/22 11/04/22 busPIRone HCl [Buspar] 10 mg PO BID 09/05/22 11/04/22 Albuterol Sulfate [Ventolin HFA] 1 - 2 puff INHALATION Q6H PRN 11/01/22 11/04/22 FLUoxetine HCL [PROzac] 40 mg PO DAILY 11/01/22 11/04/22 Losartan Potassium [Cozaar] 100 mg PO DAILY 11/01/22 11/04/22 Metoprolol Succinate (ER) [Toprol 100 mg PO BID 11/01/22 11/04/22 XL] Potassium Chloride ER [K-Dur 10] 10 meq PO DAILY 11/01/22 11/04/22 Spironolactone [Aldactone] 25 mg PO DAILY 11/01/22 11/04/22 guaiFENesin [Mucinex] 1,200 mg PO BID PRN 11/01/22 11/04/22 Previous Rx's Medication Instructions Recorded Acetaminophen Tab [Tylenol] 650 mg PO Q6HR PRN tab 09/14/22 Diltiazem Cd [Cardizem CD] 120 mg PO DAILY #90 cap 09/14/22 Simethicone [Gas-X] 125 mg PO TID PRN #60 capsule 09/14/22 Allergies Allergy/AdvReac Type Severity Reaction Status Date / Time morphine Allergy Anaphylaxis Verified 11/16/22 18:09 Penicillins Allergy Nausea & Verified 11/16/22 18:09 Vomiting Review of Systems ROS Statement: Those systems with pertinent positive or pertinent negative responses have been documented in the HPI. ROS Other: All systems not noted in ROS Statement are negative. Constitutional: Denies: fever, chills Eyes: Denies: as per HPI ENT: Denies: ear pain Respiratory: Reports: as per HPI, dyspnea Cardiovascular: Reports: as per HPI, chest pain Endocrine: Reports: fatigue Gastrointestinal: Denies: abdominal pain Genitourinary: Denies: dysuria Musculoskeletal: Denies: back pain Skin: Denies: rash Neurological: Denies: weakness Past Medical History Past Medical History: Atrial Fibrillation, Cancer, COPD, GERD/Reflux, Hyperlipidemia, Hypertension, Sleep Apnea/CPAP/BIPAP, Thyroid Disorder Additional Past Medical History / Comment(s): O2 use 24hrs per day, 3L/NC during the day, 6L at night. Hx left breast cancer 4 yrs ago treated with Chemo/Radiation and partial Mastectomy. NO BLOOD PRESSURES/LAB DRAWS ON LEFT ARM. Hx kidney stones. Hx kidney failure after Hysterectomy, no problems since. History of Any Multi-Drug Resistant Organisms: None Reported Past Surgical History: Cholecystectomy, Hysterectomy Additional Past Surgical History / Comment(s): Left partial mastectomy and lymph nodes removed, D&C's, Radioactive Iodine Treatment for Thyroid. Past Anesthesia/Blood Transfusion Reactions: Postoperative Nausea & Vomiting (PONV) Past Psychological History: Anxiety, Depression Smoking Status: Current some day smoker Past Alcohol Use History: Occasional Past Drug Use History: None Reported - Past Family History Mother Family Medical History: Cancer Father Family Medical History: Cancer Brother(s) Family Medical History: Cancer General Exam Limitations: no limitations General appearance: alert, in no apparent distress Head exam: Present: normocephalic Eye exam: Present: normal appearance Neck exam: Present: normal inspection Respiratory exam: Present: normal lung sounds bilaterally Cardiovascular Exam: Present: regular rate, irregular rhythm Expanded Peripheral pulses: 2+: Radial (R), Radial (L), Posterior Tibialis (R), Posterior Tibialis (L) GI/Abdominal exam: Present: soft. Absent: tenderness Extremities exam: Present: pedal edema. Absent: calf tenderness Neurological exam: Present: alert Psychiatric exam: Present: normal affect, normal mood Skin exam: Present: normal color Course Vital Signs 11/16/22 18:01 Temperature 98.7 F Pulse Rate 117 H Respiratory 22 Rate Blood Pressure 139/87 O2 Sat by Pulse 99 Oximetry EKG Findings - EKG Results: EKG: interpreted by ERMD (Low QRS voltage. Nonspecific ST-T.), normal axis EKG shows: atrial fibrillation Medical Decision Making - Medical Decision Making Was pt. sent in by a medical professional or institution (, PA, AUTOMATIC DRILLING MACHINE OPERATOR, urgent care, hospital, or fdc...) When possible be specific @ -No Did you speak to anyone other than the patient for history (EMS, parent, family, police, friend...)? What history was obtained from this source @ -No Did you review nursing and triage notes (agree or disagree)? Why? @ -I reviewed and agree with nursing and triage notes Were old charts reviewed (outside hosp., previous admission, EMS record, old EKG, old radiological studies, urgent care reports/EKG's, fdc records)? Report findings @ -No old charts were reviewed Differential Diagnosis (chest pain, altered mental status, abdominal pain women, abdominal pain men, vaginal bleeding, weakness, fever, dyspnea, syncope, headache, dizziness, GI bleed, back pain, seizure, CVA, palpatations, mental health)? @ -Differential Dyspnea: Coronary syndrome, arrhythmia, tamponade, asthma, COPD, pulmonary embolism, pneumonia, pneumothorax, pulmonary effusion, anaphylaxis, diabetic ketoacidosis, flailed chest, pulmonary contusion, diaphragmatic rupture, anemia, ne uromuscular, this is not meant to be an all-inclusive list. EKG interpreted by me (3pts min.). @ -As above X-rays interpreted by me (1pt min.). @ -As above CT interpreted by me (1pt min.). @ -None done U/S interpreted by me (1pt. min.). @ -None done What testing was considered but not performed or refused? (CT, X-rays, U/S, lab s)? Why? @ -None What meds were considered but not given or refused? Why? @ -None Did you discuss the management of the patient with other professionals (professionals i.e. , PA, AUTOMATIC DRILLING MACHINE OPERATOR, lab, RT, psych nurse, transition social worker, city secretary, teacher, product safety officer, casework specialist)? Give summary @ -Case was discussed with practitioner Annamarie Jorge, who will admit covering Dr. Garcia, who is covering Dr. Cole, who will admit for Dr. Lizett matt. Was smoking cessation discussed for >3mins.? @ -No Was critical care preformed (if so, how long)? @ -No Were there social determinants of health that impacted care today? How? (Homelessness, low income, unemployed, alcoholism, drug addiction, transportation, low edu. Level, literacy, decrease access to med. care, detention, rehab)? @ -No Was there de-escalation of care discussed even if they declined (Discuss DNR or withdrawal of care, Hospice)? DNR status @ -No What co-morbidities impacted this encounter? (DM, HTN, Smoking, COPD, CAD, Cancer, CVA, ARF, Chemo, Hep., AIDS, mental health diagnosis, sleep apnea, morbid obesity)? @ -None Was patient admitted / discharged? Hospital course, mention meds given and route, prescriptions, significant lab abnormalities, going to OR and other pertinent info. @ -Patient reevaluated and updated. Pulse ox 99% on 5 L. Patient will be admitted for CHF and chest pain and cardiology will be consulted. Undiagnosed new problem with uncertain prognosis? @ -No Drug Therapy requiring intensive monitoring for toxicity (Heparin, Nitro, Insulin, Cardizem)? @ -No Were any procedures done? @ -No Diagnosis/symptom? @ -CHF Acute, or Chronic, or Acute on Chronic? @ -Acute on chronic Uncomplicated (without systemic symptoms) or Complicated (systemic symptoms)? @ -Uncomplicated this time Side effects of treatment? @ -No Exacerbation, Progression, or Severe Exacerbation? @ -Or severe exacerbation Poses a threat to life or bodily function? How? (Chest pain, [place], [place], pneumonia, PE, COPD, DKA, ARF, appy, cholecystitis, CVA, Diverticulitis, Homicidal, Suicidal, threat to staff... and all critical care pts) @ -Potential threat to life and bodily function with worsening heart failure and hypoxia - Lab Data Result diagrams: 11/16/22 18:41 11/16/22 18:41 Lab Results 11/16/22 11/16/22 11/16/22 Range/Units 18:41 18:41 18:41 WBC 9.8 (3.8-10.6) k/uL RBC 3.12 L (3.80-5.40) m/uL Hgb 7.1 L (11.4-16.0) gm/dL Hct 25.3 L (34.0-46.0) % MCV 81.3 D (80.0-100.0) fL MCH 22.8 L (25.0-35.0) pg MCHC 28.1 L (31.0-37.0) g/dL RDW 17.8 H (11.5-15.5) % Plt Count 433 (150-450) k/uL MPV 6.8 Neutrophils % 81 % Lymphocytes % 9 % Monocytes % 7 % Eosinophils % 2 % Basophils % 0 % Neutrophils # 8.0 H (1.3-7.7) k/uL Lymphocytes # 0.9 L (1.0-4.8) k/uL Monocytes # 0.7 (0-1.0) k/uL Eosinophils # 0.2 (0-0.7) k/uL Basophils # 0.0 (0-0.2) k/uL Hypochromasia Marked Poikilocytosis Slight Anisocytosis Slight Microcytosis Slight PT 10.0 (9.0-12.0) sec INR 0.9 (<1.2) APTT 19.7 L (22.0-30.0) sec D-Dimer 0.42 (<0.60) mg/L FEU Sodium 140 (137-145) mmol/L Potassium 4.2 (3.5-5.1) mmol/L Chloride 107 (98-107) mmol/L Carbon Dioxide 27 (22-30) mmol/L Anion Gap 6 mmol/L BUN 18 H (7-17) mg/dL Creatinine 0.86 (0.52-1.04) mg/dL Est GFR (CKD-EPI)AfAm 85 (>60 ml/min/1.73 sqM) Est GFR (CKD-EPI)NonAf 74 (>60 ml/min/1.73 sqM) Glucose 107 H (74-99) mg/dL Plasma Lactic Acid Eliezer (0.7-2.0) mmol/L Calcium 8.2 L (8.4-10.2) mg/dL Total Bilirubin 0.4 (0.2-1.3) mg/dL AST 19 (14-36) U/L ALT 18 (4-34) U/L Alkaline Phosphatase 95 (38-126) U/L Troponin I (0.000-0.034) ng/mL NT-Pro-B Natriuret Pep pg/mL Total Protein 6.3 (6.3-8.2) g/dL Albumin 3.8 (3.5-5.0) g/dL Influenza Type A (PCR) (Not Detectd) Influenza Type B (PCR) (Not Detectd) RSV (PCR) (Not Detectd) SARS-CoV-2 (PCR) (Not Detectd) 11/16/22 11/16/22 11/16/22 Range/Units 18:41 18:41 18:41 WBC (3.8-10.6) k/uL RBC (3.80-5.40) m/uL Hgb (11.4-16.0) gm/dL Hct (34.0-46.0) % MCV (80.0-100.0) fL MCH (25.0-35.0) pg MCHC (31.0-37.0) g/dL RDW (11.5-15.5) % Plt Count (150-450) k/uL MPV Neutrophils % % Lymphocytes % % Monocytes % % Eosinophils % % Basophils % % Neutrophils # (1.3-7.7) k/uL Lymphocytes # (1.0-4.8) k/uL Monocytes # (0-1.0) k/uL Eosinophils # (0-0.7) k/uL Basophils # (0-0.2) k/uL Hypochromasia Poikilocytosis Anisocytosis Microcytosis PT (9.0-12.0) sec INR (<1.2) APTT (22.0-30.0) sec D-Dimer (<0.60) mg/L FEU Sodium (137-145) mmol/L Potassium (3.5-5.1) mmol/L Chloride (98-107) mmol/L Carbon Dioxide (22-30) mmol/L Anion Gap mmol/L BUN (7-17) mg/dL Creatinine (0.52-1.04) mg/dL Est GFR (CKD-EPI)AfAm (>60 ml/min/1.73 sqM) Est GFR (CKD-EPI)NonAf (>60 ml/min/1.73 sqM) Glucose (74-99) mg/dL Plasma Lactic Acid Eliezer 0.8 (0.7-2.0) mmol/L Calcium (8.4-10.2) mg/dL Total Bilirubin (0.2-1.3) mg/dL AST (14-36) U/L ALT (4-34) U/L Alkaline Phosphatase (38-126) U/L Troponin I <0.012 (0.000-0.034) ng/mL NT-Pro-B Natriuret Pep 2560 pg/mL Total Protein (6.3-8.2) g/dL Albumin (3.5-5.0) g/dL Influenza Type A (PCR) (Not Detectd) Influenza Type B (PCR) (Not Detectd) RSV (PCR) (Not Detectd) SARS-CoV-2 (PCR) (Not Detectd) 11/16/22 Range/Units 18:41 WBC (3.8-10.6) k/uL RBC (3.80-5.40) m/uL Hgb (11.4-16.0) gm/dL Hct (34.0-46.0) % MCV (80.0-100.0) fL MCH (25.0-35.0) pg MCHC (31.0-37.0) g/dL RDW (11.5-15.5) % Plt Count (150-450) k/uL MPV Neutrophils % % Lymphocytes % % Monocytes % % Eosinophils % % Basophils % % Neutrophils # (1.3-7.7) k/uL Lymphocytes # (1.0-4.8) k/uL Monocytes # (0-1.0) k/uL Eosinophils # (0-0.7) k/uL Basophils # (0-0.2) k/uL Hypochromasia Poikilocytosis Anisocytosis Microcytosis PT (9.0-12.0) sec INR (<1.2) APTT (22.0-30.0) sec D-Dimer (<0.60) mg/L FEU Sodium (137-145) mmol/L Potassium (3.5-5.1) mmol/L Chloride (98-107) mmol/L Carbon Dioxide (22-30) mmol/L Anion Gap mmol/L BUN (7-17) mg/dL Creatinine (0.52-1.04) mg/dL Est GFR (CKD-EPI)AfAm (>60 ml/min/1.73 sqM) Est GFR (CKD-EPI)NonAf (>60 ml/min/1.73 sqM) Glucose (74-99) mg/dL Plasma Lactic Acid Eliezer (0.7-2.0) mmol/L Calcium (8.4-10.2) mg/dL Total Bilirubin (0.2-1.3) mg/dL AST (14-36) U/L ALT (4-34) U/L Alkaline Phosphatase (38-126) U/L Troponin I (0.000-0.034) ng/mL NT-Pro-B Natriuret Pep pg/mL Total Protein (6.3-8.2) g/dL Albumin (3.5-5.0) g/dL Influenza Type A (PCR) Not Detected (Not Detectd) Influenza Type B (PCR) Not Detected (Not Detectd) RSV (PCR) Not Detected (Not Detectd) SARS-CoV-2 (PCR) Not Detected (Not Detectd) - Radiology Data Interpreted by me: Chest x-ray shows bilateral increased interstitial changes, concerning for congestion or atelectasis. Disposition Clinical Impression: Congestive heart failure, Chest pain Disposition: ADMITTED IP TO THIS HOSP Is patient prescribed a controlled substance at d/c from ED?: No Referrals: Pancho Berg DO [Primary Care Provider] - 1-2 days Time of Disposition: 20:10
[2022-11-16 19:19] LABS: Anisocytosis Slight; Basophils % (A) 0 %; Eosinophils # (A) 0.2 k/uL (0-0.7); Eosinophils % (A) 2 %; HCT 25.3 % (34.0-46.0); HGB 7.1 gm/dL (11.4-16.0); Hypochromasia Marked; Lymphocytes # (A) 0.9 k/uL (1.0-4.8); Lymphocytes % (A) 9 %; MCH 22.8 pg (25.0-35.0); MCHC 28.1 g/dL (31.0-37.0); Mean Platelet Volume 6.8; Microcytosis Slight; Monocytes # (A) 0.7 k/uL (0-1.0); Monocytes % (A) 7 %; Neutrophils % (A) 81 %; Platelet Count 433 k/uL (150-450); Poikilocytosis Slight; RBC 3.12 m/uL (3.80-5.40); RDW 17.8 % (11.5-15.5); WBC 9.8 k/uL (3.8-10.6)
[2022-11-16 19:21] LABS: MCV 81.3 fL (80.0-100.0)
[2022-11-16 19:24] LABS: Albumin 3.8 g/dL (3.5-5.0); Calcium 8.2 mg/dL (8.4-10.2); Potassium 4.2 mmol/L (3.5-5.1); Total Bilirubin 0.4 mg/dL (0.2-1.3); Total Protein 6.3 g/dL (6.3-8.2)
[2022-11-16 19:37] LABS: INR 0.9 (<1.2)
[2022-11-16 19:40] LABS: Partial Thromboplastin Time 19.7 sec (22.0-30.0)
--- NOTE | 2022-11-16 19:43 | XR ---
EXAMINATION TYPE: XR chest 2V DATE OF EXAM: 11/16/2022 COMPARISON: 09/11/2022 HISTORY: Short of breath TECHNIQUE: 2 view FINDINGS: There is no heart failure. There is slight coarsening of interstitial markings in the lower lung morales. There are no hilar masses. Heart is borderline enlarged. Bony thorax is intact IMPRESSION: Increased interstitial density in the lower lung morales compared to old exams could be so me minimal congestion or subsegmental atelectasis. No pulmonary consolidation or obvious heart failur e.
[2022-11-16] MEDS ORDERED: IPRATROPIUM-ALBUTEROL 3 ML NEB INHALATION STA (19:56)
[2022-11-16] MEDS ORDERED: ACETAMINOPHEN TAB 500 MG TAB PO STA (19:56)
[2022-11-16] MEDS ORDERED: ASPIRIN 325 MG TAB PO STA (20:12)
[2022-11-16] MEDS ORDERED: IPRATROPIUM-ALBUTEROL 3 ML NEB INHALATION PRN (20:22)
[2022-11-16] MEDS: FUROSEMIDE 10 MG/ML 4 ML VIAL IV SCH (20:25)
[2022-11-16] MEDS ORDERED: NITROGLYCERIN OINT 1 INCH/GM PACKET TOPICAL SCH (22:00)
[2022-11-16] MEDS ORDERED: ALBUTEROL NEBULIZED 2.5 MG/3 ML INHALATION PRN (23:25)
[2022-11-16] MEDS: HYDROcodone/APAP 5-325MG 1 EACH TAB PO PRN (23:36)
[2022-11-16] MEDS: busPIRone HCl 10 MG TAB PO SCH (23:37)
[2022-11-16] MEDS: APIXABAN 5 MG TAB PO SCH (23:37)
[2022-11-16] MEDS: METOPROLOL SUCCINATE (ER) 100 MG TAB.ER.24H PO SCH (23:37)
[2022-11-17] MEDS: FUROSEMIDE 10 MG/ML 4 ML VIAL IV SCH ×3 (03:11→17:12)
[2022-11-17] MEDS: HYDROcodone/APAP 5-325MG 1 EACH TAB PO PRN ×2 (06:16→18:58)
[2022-11-17] MEDS: IPRATROPIUM-ALBUTEROL 3 ML NEB INHALATION SCH ×4 (07:15→21:18)
[2022-11-17 08:31] LABS: Anisocytosis Slight; HCT 28.9 % (34.0-46.0); HGB 7.8 gm/dL (11.4-16.0); Hypochromasia Marked; MCH 22.4 pg (25.0-35.0); MCHC 26.9 g/dL (31.0-37.0); MCV 83.3 fL (80.0-100.0); Mean Platelet Volume 8.1; Platelet Count 488 k/uL (150-450); RBC 3.47 m/uL (3.80-5.40); RDW 17.9 % (11.5-15.5); WBC 8.5 k/uL (3.8-10.6)
[2022-11-17] MEDS: APIXABAN 5 MG TAB PO SCH ×2 (08:54→21:04)
[2022-11-17] MEDS: METOPROLOL SUCCINATE (ER) 100 MG TAB.ER.24H PO SCH ×2 (08:54→21:04)
[2022-11-17] MEDS: busPIRone HCl 10 MG TAB PO SCH ×2 (08:54→21:04)
[2022-11-17 08:56] LABS: Calcium 8.5 mg/dL (8.4-10.2); Potassium 3.9 mmol/L (3.5-5.1)
[2022-11-17] MEDS ORDERED: ASPIRIN 325 MG TAB PO SCH (09:00)
[2022-11-17] MEDS ORDERED: ACETAMINOPHEN TAB 325 MG TAB PO PRN (12:15)
[2022-11-17] MEDS: NICOTINE 7MG/24HR PATCH TRANSDERM SCH (12:27)
[2022-11-17] MEDS: PANTOPRAZOLE 40 MG TABLET PO SCH (12:30)
[2022-11-17] MEDS: SPIRONOLACTONE 25 MG TAB PO SCH (12:30)
[2022-11-17] MEDS: methylPREDNISolone SOD SUCCI 40 MG/ML 1 ML VIAL IV SCH ×2 (12:31→21:06)
[2022-11-17] MEDS: LEVOTHYROXINE 137 MCG TAB PO SCH (13:29)
--- NOTE | 2022-11-17 14:19 | P.CRDCN ---
History of Present Illness Consult date: 11/17/22 Consult reason: chest pain, congestive heart failure History of present illness: HISTORY OF PRESENTING ILLNESS This is a pleasant 61-year-old female past medical history significant for mild to moderate coronary artery disease, COPD, congestive heart failure, nonischemic cardiomyopathy, persistent atrial fibrillation, sick sinus syndrome, hype rtension, dyslipidemia, former smoker, obstructive sleep apnea, hypothyroidism. She follows in the office with Dr. Sharp. We have been asked to see the patient for chest pain and CHF. Patient was recently hospitalized and discharged on 09/10, treated for chest discomfort status post cardiac cat heterization with stable coronary artery disease with 50% circumflex stenosis unchanged, possible syncopal episode while having a bowel movement, persistent atrial fibrillation possible tachybradycardia syndrome. Patient was readmitted on 09/11 and was seen for bradycardia and Cardizem was resumed at a lower dose. There was concern the patient may have a degree of tachybradycardia syndrome but symptoms seem to be related to hypotension secondary to diuretics, ARB and chronic diarrhea. Patient now presents to the hospital due to complaints of shortness of breath been going on for 1-1/2-2 weeks. She states she is unable to walk even a very short distances without dyspnea. She states she is taking all of her medications as instructed. She's also had a weight gain and edema but not in her lower legs. She normally sleeps on 4-5 pillows a night. She complains of chest pain and discomfort to the top of her arms. Patient states that she diuresed well and has less edema and shortness of breath. Patient is seen today in the emergency center waiting for a bed of the cardiac stepdown u nit. DIAGNOSTICS * EKG reveals atrial fibrillation with low voltage, ventricular rate 101 * Chest xray reveals increased interstitial density in the lower lung morales compared to old exams. Could be some minimal congestion or subcu segmental atelectasis. No pulmonary consolidation or obvious heart failure. * Laboratory reviewed, WBC 8.5, hemoglobin 7.8, platelet count 488. D-dimer 0.42. Potassium 3.9, BUN 19 and creatinine 1.03. Troponin negative 3. Liver function tests within normal limits. Influenza A, influenza B, RSV and Covid 19 not detected. ProBNP 2560. * Cardiac catheterization 08/2022 revealed LAD 1020 percent stenosis, mid circumflex 50% stenosis * Echocardiogram 08/2022 revealed EF 50-55%, mild pulmonary hypertension, mild tricuspid regurgitation * CT angiogram of the aorta 09/11/2022 with no evidence of thoracic or upper abdominal aortic aneurysm or dissection. There is cardiomegaly. Atherosclerotic vascular disease. No evidence of pulmonary embolism. No suspicious pulmonary mass. Large low density right adrenal mass consistent with benign disease. Left ovarian cyst. * Current home cardiac medications include eliquis 5 mg twice daily, atorvastatin 20 mg nightly, Cardizem CD 120 mg daily, Lasix 40 mg daily, losartan 100 mg daily, Toprol-XL 100 mg daily, Aldactone 25 mg daily REVIEW OF SYSTEMS At the time of my exam: CONSTITUTIONAL: Denies fever or chills. +dizziness CARDIOVASCULAR: Denies chest pain, denies shortness of breath, Denies orthopnea, PND or palpitations. RESPIRATORY: Denies cough. GASTROINTESTINAL: Denies abdominal pain, chronic diarrhea, Denies constipation, nausea or vomiting. MUSCULOSKELETAL: Denies myalgias. NEUROLOGIC: Denies numbness, tingling, headache or weakness. ENDOCRINE: Denies fatigue, weight change, polydipsia or polyurina. GENITOURINARY: Denies burning, hematuria or urgency with micturation. HEMATOLOGIC: Denies history of anemia or bleeding. PHYSICAL EXAMINATION Vital signs reviewed CONSTITUTIONAL: No apparent distress. HEENT: Head is normocephalic. Pupils are equal, round. Sclerae anicteric. Mucous membranes of the mouth are moist. No JVD. No carotid bruit. CHEST EXAMINATION: Lungs are clear to auscultation. No chest wall tenderness is noted on palpation or with deep breathing. HEART EXAMINATION: Irregular rate and rhythm. S1, S2 heard. No murmurs, gallops or rub. ABDOMEN: Soft, nontender. Positive bowel sounds. EXTREMITIES: 2+ peripheral pulses, no lower extremity edema and no calf tenderness. NEUROLOGIC EXAMINATION: Patient is awake, alert and oriented x3. ASSESSMENT Chest pain with negative troponins, acute coronary syndrome ruled out Acute diastolic heart failure Persistent atrial fibrillation, on Eliquis COPD Anemia chronic Chronic heart failure with preserved ejection fraction History of nonischemic cardiomyopathy History of hypertension Dyslipidemia Former smoker Obstructive sleep apnea Hypothyroidism PLAN Patient patient on her home cardiac medications Continue Lasix 40 mg IV every 8 hours Monitor renal function, electrolytes No need to repeat echocardiogram. Further recommendations based on clinical course. Nurse practitioner note has been reviewed by physician. Signing provider agrees with the documented findings, assessment, and plan of care. Past Medical History Past Medical History: Atrial Fibrillation, Cancer, COPD, GERD/Reflux, Hyperlipidemia, Hypertension, Sleep Apnea/CPAP/BIPAP, Thyroid Disorder Additional Past Medical History / Comment(s): O2 use 24hrs per day, 3L/NC during the day, 6L at night. Hx left breast cancer 4 yrs ago treated with Chemo/Radiation and partial Mastectomy. NO BLOOD PRESSURES/LAB DRAWS ON LEFT ARM. Hx kidney stones. Hx kidney failure after Hysterectomy, no problems since. History of Any Multi-Drug Resistant Organisms: None Reported Past Surgical History: Cholecystectomy, Hysterectomy Additional Past Surgical History / Comment(s): Left partial mastectomy and lymph nodes removed, D&C's, Radioactive Iodine Treatment for Thyroid. Past Anesthesia/Blood Transfusion Reactions: Postoperative Nausea & Vomiting (PONV) Past Psychological History: Anxiety, Depression Smoking Status: Current some day smoker Past Alcohol Use History: Occasional Past Drug Use History: None Reported - Past Family History Mother Family Medical History: Cancer Father Family Medical History: Cancer Brother(s) Family Medical History: Cancer Medications and Allergies Home Medications Medication Instructions Recorded Confirmed Type Apixaban [Eliquis] 5 mg PO BID 10/01/21 11/16/22 History Atorvastatin [Lipitor] 20 mg PO HS 10/01/21 11/16/22 History Levothyroxine Sodium [Synthroid] 137 mcg PO DAILY 10/01/21 11/16/22 History Omeprazole 20 mg PO DAILY 10/01/21 11/16/22 History Furosemide [Lasix] 40 mg PO DAILY 09/05/22 11/16/22 History busPIRone HCl [Buspar] 10 mg PO BID 09/05/22 11/16/22 History Acetaminophen Tab [Tylenol] 650 mg PO Q6HR PRN tab 09/14/22 11/16/22 Rx Diltiazem Cd [Cardizem CD] 120 mg PO DAILY #90 cap 09/14/22 11/16/22 Rx Albuterol Sulfate [Ventolin HFA] 1 - 2 puff INHALATION Q6H PRN 11/01/22 11/16/22 History FLUoxetine HCL [PROzac] 40 mg PO DAILY 11/01/22 11/16/22 History Losartan Potassium [Cozaar] 100 mg PO DAILY 11/01/22 11/16/22 History Metoprolol Succinate (ER) [Toprol 100 mg PO BID 11/01/22 11/16/22 History XL] Potassium Chloride ER [K-Dur 10] 10 meq PO DAILY 11/01/22 11/16/22 History Spironolactone [Aldactone] 25 mg PO DAILY 11/01/22 11/16/22 History Allergies Allergy/AdvReac Type Severity Reaction Status Date / Time morphine Allergy Anaphylaxis Verified 11/16/22 18:09 Penicillins Allergy Nausea & Verified 11/16/22 18:09 Vomiting Physical Exam Vitals: Vital Signs Temp Pulse Pulse Resp BP BP Pulse Ox 11/17/22 07:19 95 11/17/22 07:16 87 18 11/17/22 03:24 98.7 F 86 15 126/64 99 11/17/22 02:33 11/17/22 00:16 11/17/22 00:00 98.7 F 115 H 24 149/97 100 11/16/22 20:53 114 H 22 98 11/16/22 20:40 114 H 20 163/136 99 11/16/22 20:25 116 H 11/16/22 20:12 114 H 11/16/22 18:01 98.7 F 117 H 22 139/87 99 FiO2 11/17/22 07:19 11/17/22 07:16 40 11/17/22 03:24 44 11/17/22 02:33 44 11/17/22 00:16 44 11/17/22 00:00 11/16/22 20:53 11/16/22 20:40 11/16/22 20:25 11/16/22 20:12 11/16/22 18:01 Intake and Output 11/16/22 11/17/22 11/17/22 22:59 06:59 14:59 Output Total 1200 3800 Balance -1200 -3800 Output: Urine 1200 3800 Other: Voiding Method Indwelling Catheter Weight 140.614 kg Results 11/17/22 08:04 11/17/22 08:04 Cardiac Enzymes 11/16/22 11/16/22 11/16/22 Range/Units 18:41 18:41 22:25 AST 19 (14-36) U/L Troponin I <0.012 <0.012 (0.000-0.034) ng/mL 11/17/22 Range/Units 02:04 AST (14-36) U/L Troponin I <0.012 (0.000-0.034) ng/mL Coagulation 11/16/22 Range/Units 18:41 PT 10.0 (9.0-12.0) sec APTT 19.7 L (22.0-30.0) sec CBC 11/16/22 Range/Units 18:41 WBC 9.8 (3.8-10.6) k/uL RBC 3.12 L (3.80-5.40) m/uL Hgb 7.1 L (11.4-16.0) gm/dL Hct 25.3 L (34.0-46.0) % Plt Count 433 (150-450) k/uL Comprehensive Metabolic Panel 11/16/22 Range/Units 18:41 Sodium 140 (137-145) mmol/L Potassium 4.2 (3.5-5.1) mmol/L Chloride 107 (98-107) mmol/L Carbon Dioxide 27 (22-30) mmol/L BUN 18 H (7-17) mg/dL Creatinine 0.86 (0.52-1.04) mg/dL Glucose 107 H (74-99) mg/dL Calcium 8.2 L (8.4-10.2) mg/dL AST 19 (14-36) U/L ALT 18 (4-34) U/L Alkaline Phosphatase 95 (38-126) U/L Total Protein 6.3 (6.3-8.2) g/dL Albumin 3.8 (3.5-5.0) g/dL Current Medications Generic Name Dose Route Start Last Admin Trade Name Freq PRN Reason Stop Dose Admin Hydrocodone Bitart/Acetaminophen 1 each 11/16/22 23:27 11/17/22 06:16 Hydrocodone/Apap 5-325mg 1 Each Tab PO 1 each TID PRN Administration Pain Albuterol Sulfate 2.5 mg 11/16/22 23:25 Albuterol Nebulized 2.5 Mg/3 Ml INHALATION RT-Q6H PRN sob Albuterol/Ipratropium 3 ml 11/17/22 08:00 11/17/22 07:15 Ipratropium-Albuterol 3 Ml Neb INHALATION 3 ml RT-QID OUMOU Administration Albuterol/Ipratropium 3 ml 11/16/22 20:22 Ipratropium-Albuterol 3 Ml Neb INHALATION RT-QID PRN Shortness Of Breath Or Wheezing Apixaban 5 mg 11/16/22 23:30 11/16/22 23:37 Apixaban 5 Mg Tab PO 5 mg BID OUMOU Administration Protocol Aspirin 325 mg 11/17/22 09:00 Aspirin 325 Mg Tab PO DAILY OUMOU Buspirone HCl 10 mg 11/16/22 23:30 11/16/22 23:37 Buspirone Hcl 10 Mg Tab PO 10 mg BID OUMOU Administration Furosemide 40 mg 11/16/22 20:00 11/17/22 03:11 Furosemide 10 Mg/Ml 4 Ml Vial IV 40 mg Q8H OUMOU Administration Metoprolol Succinate 100 mg 11/16/22 23:30 11/16/22 23:37 Metoprolol Succinate (Er) 100 Mg Tab.Er.24h PO 100 mg BID OUMOU Administration Intake and Output 11/16/22 11/17/22 11/17/22 22:59 06:59 14:59 Output Total 1200 3800 Balance -1200 -3800 Output: Urine 1200 3800 Other: Voiding Method Indwelling Catheter Weight 140.614 kg 11/16/22 18:41 11/16/22 18:41
[2022-11-17] MEDS ORDERED: ONDANSETRON 4 MG/2 ML VIAL IVP PRN (14:22)
[2022-11-17] MEDS ORDERED: CALCIUM CARBONATE 500 MG CHEWABLE PO PRN (14:22)
[2022-11-17] MEDS ORDERED: LACTULOSE 20 GM/30 ML CUP PO PRN (14:22)
[2022-11-17] MEDS ORDERED: MELATONIN 3 MG TABLET PO PRN (14:22)
[2022-11-17] MEDS ORDERED: NALOXONE 0.4 MG/ML 1 ML VIAL IV PRN (14:22)
--- NOTE | 2022-11-17 14:28 | P.HPIM ---
History of Present Illness H&P Date: 11/17/22 Chief Complaint: Short of breath This is a pleasant 61-year-old patient follows Dr. Berg. Chronic stable medical conditions include atrial fibrillation, COPD, GERD, hyperlipidemia, hypertension, obstructive sleep apnea uses CPAP, hypothyroid, uses 3 L of oxygen during the daytime and 6 L at night, had breast cancer treated with chemoradiation and partial mastectomy, kidney stones, anxiety depression. Patient been a long-standing smoker and in beginning of 2020 Back to few cigarettes here and there. Atrial fibrillation.. Patient presents with a few days of decrease in energy. Getting easily short of breath even rolling in bed. Wheezing. Cough some sputum production. No fever no chills. Appetite is okay. Tired rundown. Treated for CHF exacerbation in the ER and making good amount of urine. Breathing feeling a shade better. Review of systems: GEN.: Tired EYES: None HEENT: None NECK: None RESPIRATORY: As above CARDIOVASCULAR: None GASTROINTESTINAL: None GENITOURINARY: None MUSCULOSKELETAL: Joint pains LYMPHATICS: None HEMATOLOGICAL: None PSYCHIATRY: Anxious NEUROLOGICAL: None Past medical history to include: Atrial fibrillation, COPD, GERD, hyperlipidemia, hypertension, after sleep apnea uses CPAP, hypothyroid, oxygen 3 history the daytime is 6 L at night, breast cancer , treated with chemoradiation and partial mastectomy, kidney stones, anxiety depression Social history: Patient smoked for about 40 years pack and a half a day and since 2020 few cigarettes a day did use marijuana in the past. Lives with her sister Physical examination: VITAL SIGNS: [98.7, 1.7, 22, 139/87, 99% on 5 L GENERAL: BMI 51.6, laying in bed, short of breath . EYES: Pupils equal. Conjunctiva normal. HEENT: External appearance of nose and ears normal, oral cavity grossly normal. NECK: JVD not raised; masses not palpable. HEART: First and second heart sounds are normal; mild edema. LUNGS: Respiratory rate increased; diminished breath sounds, prolonged expiration. ABDOMEN: Soft, nontender, liver spleen not palpable, no masses palpable. PSYCH: Alert and oriented x3; mood and affect anxiousl. MUSCULOSKELETAL:No Clubbing/cyanosis;muscles-grossly intact, OA NEUROLOGICAL: Cranial nerves grossly intact; no facial asymmetry, power and sensation grossly intact. LYMPHATICS: No lymph nodes palpable in the axilla and neck INVESTIGATIONS, reviewed in the clinical context: White count 8.5 hemoglobin 7.8 platelets 488 progression 3.9 BUN 19 creatinine 1.03 Troponin I 3 less than 0.012 proBNP 2560 Influenza type A/diabetes/RSV/COVID-19: Not detected EKG tracing personally reviewed by me-atrial fibrillation, nonspecific T-wave changes ST segment changes, rate 101 Chest x-ray film personally reviewed by me-left basilar infiltrate Assessment and plan: -Acute COPD exacerbation in a current smoker DuoNeb, nebulized Pulmicort, IV Solu-Medrol -Left basilar pneumonia suspect gram-negative organism IV ceftriaxone. Procalcitonin. - Persistent atrial fibrillation , heart rate controlled controlled. Telemetry. Toprol-XL 100 mg twice a day . Eliquis -Acute on Chronic congestive heart failure exacerbation from diastolic dys function EF 50-55% IV Lasix 40 mg every 12 -Nonobstructive CAD with 50% circumflex lesion, per cardiac cath -August 2022 Aspirin -Nicotine dependence, smoker Nicotine patch -Morbid obesity, BMI 51.6 Weight loss measures -Essential hypertension Toprol-XL -Depression Prozac, BuSpar -Hypothyroid Synthroid -GERD PPI Past Medical History Past Medical History: Atrial Fibrillation, Cancer, COPD, GERD/Reflux, Hyperlipidemia, Hypertension, Sleep Apnea/CPAP/BIPAP, Thyroid Disorder Additional Past Medical History / Comment(s): O2 use 24hrs per day, 3L/NC during the day, 6L at night. Hx left breast cancer 4 yrs ago treated with Chemo/Radiation and partial Mastectomy. NO BLOOD PRESSURES/LAB DRAWS ON LEFT ARM. Hx kidney stones. Hx kidney failure after Hysterectomy, no problems since. History of Any Multi-Drug Resistant Organisms: None Reported Past Surgical History: Cholecystectomy, Hysterectomy Additional Past Surgical History / Comment(s): Left partial mastectomy and lymph nodes removed, D&C's, Radioactive Iodine Treatment for Thyroid. Past Anesthesia/Blood Transfusion Reactions: Postoperative Nausea & Vomiting (PONV) Past Psychological History: Anxiety, Depression Additional Psychological History / Comment(s): Panic attacks. Smoking Status: Current some day smoker Past Alcohol Use History: Occasional Additional Past Alcohol Use History / Comment(s): Quit smoking 3 weeks ago, smo ked for 40 yrs, 1-09/01 ppd. Past Drug Use History: None Reported Additional Drug Use History / Comment(s): Uses Marijuana edibles. Aware no use 24 hrs prior to procedure. - Past Family History Mother Family Medical History: Cancer Father Family Medical History: Cancer Brother(s) Family Medical History: Cancer Medications and Allergies Home Medications Medication Instructions Recorded Confirmed Type Apixaban [Eliquis] 5 mg PO BID 10/01/21 11/16/22 History Atorvastatin [Lipitor] 20 mg PO HS 10/01/21 11/16/22 History Levothyroxine Sodium [Synthroid] 137 mcg PO DAILY 10/01/21 11/16/22 History Omeprazole 20 mg PO DAILY 10/01/21 11/16/22 History Furosemide [Lasix] 40 mg PO DAILY 09/05/22 11/16/22 History busPIRone HCl [Buspar] 10 mg PO BID 09/05/22 11/16/22 History Acetaminophen Tab [Tylenol] 650 mg PO Q6HR PRN tab 09/14/22 11/16/22 Rx Diltiazem Cd [Cardizem CD] 120 mg PO DAILY #90 cap 09/14/22 11/16/22 Rx Albuterol Sulfate [Ventolin HFA] 1 - 2 puff INHALATION Q6H PRN 11/01/22 11/16/22 History FLUoxetine HCL [PROzac] 40 mg PO DAILY 11/01/22 11/16/22 History Losartan Potassium [Cozaar] 100 mg PO DAILY 11/01/22 11/16/22 History Metoprolol Succinate (ER) [Toprol 100 mg PO BID 11/01/22 11/16/22 History XL] Potassium Chloride ER [K-Dur 10] 10 meq PO DAILY 11/01/22 11/16/22 History Spironolactone [Aldactone] 25 mg PO DAILY 11/01/22 11/16/22 History Allergies Allergy/AdvReac Type Severity Reaction Status Date / Time morphine Allergy Anaphylaxis Verified 11/16/22 18:09 Penicillins Allergy Nausea & Verified 11/16/22 18:09 Vomiting Physical Exam Vitals: Vital Signs Temp Pulse Pulse Resp BP BP Pulse Ox 11/17/22 11:22 82 18 11/17/22 11:09 90 17 119/71 99 11/17/22 08:50 110 H 16 115/65 99 11/17/22 07:27 88 18 11/17/22 07:19 95 11/17/22 07:16 87 18 11/17/22 03:24 98.7 F 86 15 126/64 99 11/17/22 02:33 11/17/22 00:16 11/17/22 00:00 98.7 F 115 H 24 149/97 100 11/16/22 20:53 114 H 22 98 11/16/22 20:40 114 H 20 163/136 99 11/16/22 20:25 116 H 11/16/22 20:12 114 H 11/16/22 18:01 98.7 F 117 H 22 139/87 99 FiO2 11/17/22 11:22 11/17/22 11:09 11/17/22 08:50 11/17/22 07:27 11/17/22 07:19 11/17/22 07:16 40 11/17/22 03:24 44 11/17/22 02:33 44 11/17/22 00:16 44 11/17/22 00:00 11/16/22 20:53 11/16/22 20:40 11/16/22 20:25 11/16/22 20:12 11/16/22 18:01 Intake and Output 11/16/22 11/17/22 11/17/22 22:59 06:59 14:59 Output Total 1200 3800 300 Balance -1200 -3800 -300 Output: Urine 1200 3800 300 Other: Voiding Method Indwelling Catheter Indwelling Catheter Weight 140.614 kg 140.614 kg Results CBC & Chem 7: 11/17/22 08:04 11/17/22 08:04 Labs: Abnormal Lab Results - Last 24 Hours (Table) 11/16/22 11/16/22 11/16/22 Range/Units 18:41 18:41 18:41 RBC 3.12 L (3.80-5.40) m/uL Hgb 7.1 L (11.4-16.0) gm/dL Hct 25.3 L (34.0-46.0) % MCH 22.8 L (25.0-35.0) pg MCHC 28.1 L (31.0-37.0) g/dL RDW 17.8 H (11.5-15.5) % Plt Count (150-450) k/uL Neutrophils # 8.0 H (1.3-7.7) k/uL Lymphocytes # 0.9 L (1.0-4.8) k/uL APTT 19.7 L (22.0-30.0) sec Carbon Dioxide (22-30) mmol/L BUN 18 H (7-17) mg/dL Glucose 107 H (74-99) mg/dL Calcium 8.2 L (8.4-10.2) mg/dL 11/17/22 11/17/22 Range/Units 08:04 08:04 RBC 3.47 L (3.80-5.40) m/uL Hgb 7.8 L (11.4-16.0) gm/dL Hct 28.9 L (34.0-46.0) % MCH 22.4 L (25.0-35.0) pg MCHC 26.9 L (31.0-37.0) g/dL RDW 17.9 H (11.5-15.5) % Plt Count 488 H (150-450) k/uL Neutrophils # (1.3-7.7) k/uL Lymphocytes # (1.0-4.8) k/uL APTT (22.0-30.0) sec Carbon Dioxide 35 H (22-30) mmol/L BUN 19 H (7-17) mg/dL Glucose 108 H (74-99) mg/dL Calcium (8.4-10.2) mg/dL Thrombosis Risk Factor Assmnt - Choose All That Apply Any of the Below Risk Factors Present?: Yes Each Risk Factor Represents 2 Points: Age 61-74 years Other congenital or acquired thrombophilia - If yes, enter type in comment: No Thrombosis Risk Factor Assessment Total Risk Factor Score: 2 Thrombosis Risk Factor Assessment Level: Low Risk
[2022-11-17] MEDS: BUDESONIDE 1 MG/2 ML NEBU INHALATION SCH ×2 (14:42→21:18)
[2022-11-17] MEDS: ALPRAZolam 0.25 MG TAB PO PRN ×2 (15:04→22:56)
[2022-11-17 17:30] LABS: Glucose,Whole Blood 184 mg/dL (70-110)
[2022-11-17] MEDS ORDERED: DEXTROSE 50% SYRINGE 50 ML IVP PRN ×2 (17:47)
[2022-11-17 19:23] LABS: Calcium 8.7 mg/dL (8.4-10.2); Magnesium 1.5 mg/dL (1.6-2.3); Potassium 4.1 mmol/L (3.5-5.1)
[2022-11-17 20:03] LABS: Glucose,Whole Blood 212 mg/dL (70-110)
[2022-11-17] MEDS: INSULIN ASPART (NovoLOG) 100 UNIT/ML VIAL SQ SCH (21:01)
[2022-11-17] MEDS: ATORVASTATIN 20 MG TAB PO SCH (21:04)
[2022-11-17] MEDS: MAGNESIUM OXIDE 400 MG TAB PO SCH (22:56)
[2022-11-17] MEDS: DILTIAZEM ORAL 30 MG TAB PO SCH (23:36)
[2022-11-18 05:53] LABS: Glucose,Whole Blood 215 mg/dL (70-110)
[2022-11-18] MEDS: methylPREDNISolone SOD SUCCI 40 MG/ML 1 ML VIAL IV SCH ×3 (06:22→20:31)
[2022-11-18] MEDS: FUROSEMIDE 10 MG/ML 4 ML VIAL IV SCH ×2 (06:23→17:09)
[2022-11-18] MEDS: LEVOTHYROXINE 137 MCG TAB PO SCH (06:23)
[2022-11-18] MEDS: PANTOPRAZOLE 40 MG TABLET PO SCH (06:23)
[2022-11-18] MEDS: INSULIN ASPART (NovoLOG) 100 UNIT/ML VIAL SQ SCH ×4 (06:23→20:31)
[2022-11-18] MEDS: ALPRAZolam 0.25 MG TAB PO PRN ×3 (06:51→20:31)
[2022-11-18 07:29] LABS: Calcium 8.6 mg/dL (8.4-10.2); Potassium 4.1 mmol/L (3.5-5.1)
[2022-11-18] MEDS: IPRATROPIUM-ALBUTEROL 3 ML NEB INHALATION SCH ×4 (08:19→21:05)
[2022-11-18] MEDS: BUDESONIDE 1 MG/2 ML NEBU INHALATION SCH ×2 (08:19→21:05)
[2022-11-18] MEDS: METOPROLOL SUCCINATE (ER) 100 MG TAB.ER.24H PO SCH ×2 (08:50→20:31)
[2022-11-18] MEDS: DILTIAZEM ORAL 30 MG TAB PO SCH ×4 (08:50→21:19)
[2022-11-18] MEDS: MAGNESIUM OXIDE 400 MG TAB PO SCH (08:50)
[2022-11-18] MEDS: FLUoxetine HCL 20 MG CAP PO SCH (08:50)
[2022-11-18] MEDS: busPIRone HCl 10 MG TAB PO SCH ×2 (08:51→20:31)
[2022-11-18] MEDS: SPIRONOLACTONE 25 MG TAB PO SCH (08:51)
[2022-11-18] MEDS: APIXABAN 5 MG TAB PO SCH ×2 (08:51→20:31)
[2022-11-18] MEDS: NICOTINE 7MG/24HR PATCH TRANSDERM SCH (08:51)
[2022-11-18] MEDS: HYDROcodone/APAP 5-325MG 1 EACH TAB PO PRN ×2 (08:54→20:31)
[2022-11-18 09:33] LABS: Anisocytosis Slight; HCT 33.4 % (34.0-46.0); HGB 9.1 gm/dL (11.4-16.0); Hypochromasia Marked; MCH 23.2 pg (25.0-35.0); MCHC 27.3 g/dL (31.0-37.0); MCV 85.1 fL (80.0-100.0); Mean Platelet Volume 7.7; Platelet Count 592 k/uL (150-450); RBC 3.93 m/uL (3.80-5.40); RDW 17.6 % (11.5-15.5); WBC 14.6 k/uL (3.8-10.6)
[2022-11-18 11:08] VITALS: BMI 52.4
--- NOTE | 2022-11-18 11:14 | P.PN ---
Subjective Progress Note Date: 11/18/22 HISTORY OF PRESENTING ILLNESS This is a pleasant 61-year-old female past medical history significant for mild to moderate coronary artery disease, COPD, congestive heart failure, nonischemic cardiomyopathy, persistent atrial fibrillation, sick sinus syndrome, hypertension, dyslipidemia, former smoker, obstructive sleep apnea, hypothyroidism. She follows in the office with Dr. Sharp. We have been asked to see the patient for chest pain and CHF. Patient was recently hospitalized and discharged on 09/10, treated for chest discomfort status post cardiac catheterization with stable coronary artery disease with 50% circumflex stenosis unchanged, possible syncopal episode while having a bowel movement, persistent atrial fibrillation possible tachybradycardia syndrome. Patient was readmitted on 09/11 and was seen for bradycardia and Cardizem was resumed at a lower dose. There was concern the patient may have a degree of tachybradycardia syndrome but symptoms seem to be related to hypotension secondary to diuretics, ARB and chronic diarrhea. Patient now presents to the hospital due to complaints of shortness of breath been going on for 1-1/2-2 weeks. She states she is unable to walk even a very short distances without dyspnea. She states she is taking all of her medications as instructed. She's also had a weight gain and edema but not in her lower legs. She normally sleeps on 4-5 pillows a night. She complains of chest pain and discomfort to the top of her arms. Patient states that she diuresed well and has less edema and shortness of breath. Patient is seen today in the emergency center waiting for a bed of the cardiac stepdown unit. DIAGNOSTICS * EKG reveals atrial fibrillation with low voltage, ventricular rate 101 * Chest xray reveals increased interstitial density in the lower lung morales compared to old exams. Could be some minimal congestion or subcu segmental atelectasis. No pulmonary consolidation or obvious heart failure. * Laboratory reviewed, WBC 8.5, hemoglobin 7.8, platelet count 488. D-dimer 0.42. Potassium 3.9, BUN 19 and creatinine 1.03. Troponin negative 3. Liver function tests within normal limits. Influenza A, influenza B, RSV and Covid 19 not detected. ProBNP 2560. * Cardiac catheterization 08/2022 revealed LAD 1020 percent stenosis, mid circumflex 50% stenosis * Echocardiogram 08/2022 revealed EF 50-55%, mild pulmonary hypertension, mild tricuspid regurgitation * CT angiogram of the aorta 09/11/2022 with no evidence of thoracic or upper abdominal aortic aneurysm or dissection. There is cardiomegaly. Atherosclerotic vascular disease. No evidence of pulmonary embolism. No suspicious pulmonary mass. Large low density right adrenal mass consistent with benign disease. Left ovarian cyst. * Current home cardiac medications include eliquis 5 mg twice daily, atorvastatin 20 mg nightly, Cardizem CD 120 mg daily, Lasix 40 mg daily, losartan 100 mg daily, Toprol-XL 100 mg daily, Aldactone 25 mg daily 11/18 Patient is seen today on the cardiac stepdown unit. She has been continued on Lasix 40 mg every 8 hours. Repeat blood work reveals potassium 4.1, BUN 29 and creatinine 0.94. Hemoglobin 9.1, WBC 14.6. Patient is fully in place with good urine output and improvement of lower extremity edema. She is normally on home O2 at 3 L during the day and 6 on BiPAP at nighttime. PHYSICAL EXAMINATION Vital signs reviewed CONSTITUTIONAL: No apparent distress. HEENT: Head is normocephalic. Pupils are equal, round. Sclerae anicteric. Mucous membranes of the mouth are moist. No JVD. No carotid bruit. CHEST EXAMINATION: Crackles bilaterally. HEART EXAMINATION: Irregular rate and rhythm. S1, S2 heard. No murmurs, gallops or rub. ABDOMEN: Soft, nontender. Positive bowel sounds. EXTREMITIES: 2+ peripheral pulses, no lower extremity edema and no calf tenderness. NEUROLOGIC EXAMINATION: Patient is awake, alert and oriented x3. ASSESSMENT Chest pain with negative troponins, acute coronary syndrome ruled out Acute diastolic heart failure Persistent atrial fibrillation, on Eliquis COPD Anemia chronic Chronic heart failure with preserved ejection fraction History of nonischemic cardiomyopathy History of hypertension Dyslipidemia Former smoker Obstructive sleep apnea Hypothyroidism PLAN Continue patient on her home cardiac medications Continue Lasix 40 mg IV every 8 hours for 1 more day Monitor renal function, electrolytes No need to repeat echocardiogram. Further recommendations based on clinical course. Nurse practitioner note has been reviewed by physician. Signing provider agrees with the documented findings, assessment, and plan of care. Objective - Vital Signs Vital signs: Vital Signs Temp 98.1 F 11/17/22 20:00 Pulse 106 H 11/18/22 03:47 Resp 18 11/18/22 03:47 BP 136/77 11/18/22 03:47 Pulse Ox 100 11/18/22 03:47 FiO2 40 11/18/22 04:16 Intake & Output 11/17/22 11/18/22 11/18/22 18:59 06:59 18:59 Intake Total 200 240 Output Total 2340 1300 Balance -2340 -1100 240 Weight 140.614 kg 143 kg Intake: Oral 200 240 Output: Urine 2340 1300 Other: Voiding Method Indwelling Catheter Indwelling Catheter - Labs CBC & Chem 7: 11/18/22 06:47 11/18/22 06:47 Labs: Abnormal Lab Results - Last 24 Hours (Table) 11/17/22 11/17/22 11/17/22 Range/Units 08:04 08:04 17:28 RBC 3.47 L (3.80-5.40) m/uL Hgb 7.8 L (11.4-16.0) gm/dL Hct 28.9 L (34.0-46.0) % MCH 22.4 L (25.0-35.0) pg MCHC 26.9 L (31.0-37.0) g/dL RDW 17.9 H (11.5-15.5) % Plt Count 488 H (150-450) k/uL Chloride (98-107) mmol/L Carbon Dioxide 35 H (22-30) mmol/L BUN 19 H (7-17) mg/dL Creatinine (0.52-1.04) mg/dL Glucose 108 H (74-99) mg/dL POC Glucose (mg/dL) 184 H (70-110) mg/dL Magnesium (1.6-2.3) mg/dL 11/17/22 11/17/22 11/18/22 Range/Units 19:01 20:01 05:52 RBC (3.80-5.40) m/uL Hgb (11.4-16.0) gm/dL Hct (34.0-46.0) % MCH (25.0-35.0) pg MCHC (31.0-37.0) g/dL RDW (11.5-15.5) % Plt Count (150-450) k/uL Chloride 96 L (98-107) mmol/L Carbon Dioxide 34 H (22-30) mmol/L BUN 24 H (7-17) mg/dL Creatinine 1.11 H (0.52-1.04) mg/dL Glucose 225 H (74-99) mg/dL POC Glucose (mg/dL) 212 H 215 H (70-110) mg/dL Magnesium 1.5 L (1.6-2.3) mg/dL 11/18/22 Range/Units 06:47 RBC (3.80-5.40) m/uL Hgb (11.4-16.0) gm/dL Hct (34.0-46.0) % MCH (25.0-35.0) pg MCHC (31.0-37.0) g/dL RDW (11.5-15.5) % Plt Count (150-450) k/uL Chloride 96 L (98-107) mmol/L Carbon Dioxide 31 H (22-30) mmol/L BUN 29 H (7-17) mg/dL Creatinine (0.52-1.04) mg/dL Glucose 186 H (74-99) mg/dL POC Glucose (mg/dL) (70-110) mg/dL Magnesium (1.6-2.3) mg/dL
[2022-11-18 11:49] LABS: Glucose,Whole Blood 202 mg/dL (70-110)
--- NOTE | 2022-11-18 15:10 | P.PN ---
Progress Note - Text Progress Note Date: 11/18/22 Chief Complaint: Short of breath This is a pleasant 61-year-old patient follows Dr. Berg. Chronic stable medical conditions include atrial fibrillation, COPD, GERD, hyperlipidemia, hypertension, obstructive sleep apnea uses CPAP, hypothyroid, uses 3 L of oxygen during the daytime and 6 L at night, had breast cancer treated with chemoradiation and partial mastectomy, kidney stones, anxiety depression. Patient been a long-standing smoker and in beginning of 2020 Back to few cigarettes here and there. Atrial fibrillation.. Patient presents with a few days of decrease in energy. Getting easily short of breath even rolling in bed. Wheezing. Cough some sputum production. No fever no chills. Appetite is okay. Tired rundown. Treated for CHF exacerbation in the ER and making good amount of urine. Breathing feeling a shade better. Admitted with acute COPD exacerbation, pneumonia, atrial fibrillation, acute CHF exacerbation. DuoNeb. Nebulized bronchodilators. IV Lasix. In 11/18/2022: Feeling a bit better. A bit less short of breath. Made good urine output. On IV Lasix. We will discontinue Tadeo. Have the patient sit up in a chair. Eating better. Active Medications Acetaminophen (Acetaminophen Tab 325 Mg Tab) 650 mg PO Q6HR PRN PRN Reason: Mild Pain or Fever > 100.5 Last Admin: 11/17/22 21:02 Dose: 650 mg Hydrocodone Bitart/Acetaminophen (Hydrocodone/Apap 5-325mg 1 Each Tab) 1 each PO TID PRN PRN Reason: Pain Last Admin: 11/18/22 08:54 Dose: 1 each Albuterol Sulfate (Albuterol Nebulized 2.5 Mg/3 Ml) 2.5 mg INHALATION RT-Q6H PRN PRN Reason: sob Albuterol/Ipratropium (Ipratropium-Albuterol 3 Ml Neb) 3 ml INHALATION RT-QID OUMOU Last Admin: 11/18/22 11:46 Dose: 3 ml Albuterol/Ipratropium (Ipratropium-Albuterol 3 Ml Neb) 3 ml INHALATION RT-QID PRN PRN Reason: Shortness Of Breath Or Wheezing Alprazolam (Alprazolam 0.25 Mg Tab) 0.25 mg PO Q6HR PRN PRN Reason: Anxiety Last Admin: 11/18/22 12:04 Dose: 0.25 mg Apixaban (Apixaban 5 Mg Tab) 5 mg PO BID [facility]; Protocol Last Admin: 11/18/22 08:51 Dose: 5 mg Atorvastatin Calcium (Atorvastatin 20 Mg Tab) 20 mg PO HS [facility] Last Admin: 11/17/22 21:04 Dose: 20 mg Budesonide (Budesonide 1 Mg/2 Ml Nebu) 1 mg INHALATION RT-BID [facility] Last Admin: 11/18/22 08:19 Dose: 1 mg Buspirone HCl (Buspirone Hcl 10 Mg Tab) 10 mg PO BID [facility] Last Admin: 11/18/22 08:51 Dose: 10 mg Calcium Carbonate/Glycine (Calcium Carbonate 500 Mg Chewable) 1,000 mg PO Q4HR PRN PRN Reason: Dyspepsia Dextrose/Water (Dextrose 50% Syringe 50 Ml) 25 ml IVP PER PROTOCOL PRN; Protocol PRN Reason: Hypoglycemia Dextrose/Water (Dextrose 50% Syringe 50 Ml) 50 ml IVP PER PROTOCOL PRN; Protocol PRN Reason: Hypoglycemia Diltiazem HCl (Diltiazem Oral 30 Mg Tab) 30 mg PO QID [facility] Last Admin: 11/18/22 12:00 Dose: 30 mg Fluoxetine HCl (Fluoxetine Hcl 20 Mg Cap) 40 mg PO DAILY [facility] Last Admin: 11/18/22 08:50 Dose: 40 mg Furosemide (Furosemide 10 Mg/Ml 4 Ml Vial) 40 mg IV Q12H [facility] Last Admin: 11/18/22 06:23 Dose: 40 mg Ceftriaxone Sodium 1 gm/ (Sodium Chloride) 50 mls @ 100 mls/hr IVPB Q12HR [facility]; Protocol Last Admin: 11/18/22 08:50 Dose: 100 mls/hr Insulin Aspart (Insulin Aspart (Novolog) 100 Unit/Ml Vial) 0 unit SQ ACHS [facility]; Protocol Last Admin: 11/18/22 12:00 Dose: 4 unit Lactulose (Lactulose 20 Gm/30 Ml Cup) 20 gm PO DAILY PRN PRN Reason: Constipation Levothyroxine Sodium (Levothyroxine 137 Mcg Tab) 137 mcg PO DAILY@0630 [facility] Last Admin: 11/18/22 06:23 Dose: 137 mcg Magnesium Oxide (Magnesium Oxide 400 Mg Tab) 400 mg PO DAILY [facility] Last Admin: 11/18/22 08:50 Dose: 400 mg Melatonin (Melatonin 3 Mg Tablet) 3 mg PO HS PRN PRN Reason: Insomnia Methylprednisolone Sodium Succinate (Methylprednisolone Sod Succi 40 Mg/Ml 1 Ml Vial) 40 mg IV Q8H [facility] Last Admin: 11/18/22 12:00 Dose: 40 mg Metoprolol Succinate (Metoprolol Succinate (Er) 100 Mg Tab.Er.24h) 100 mg PO BID [facility] Last Admin: 11/18/22 08:50 Dose: 100 mg Naloxone HCl (Naloxone 0.4 Mg/Ml 1 Ml Vial) 0.2 mg IV Q2M PRN PRN Reason: Opioid Reversal Nicotine (Nicotine 7mg/24hr Patch) 1 patch TRANSDERM DAILY [facility] Last Admin: 11/18/22 08:51 Dose: Not Given Ondansetron HCl (Ondansetron 4 Mg/2 Ml Vial) 4 mg IVP Q8HR PRN PRN Reason: Nausea And Vomiting Pantoprazole Sodium (Pantoprazole 40 Mg Tablet) 40 mg PO AC-BRKFST [facility] Last Admin: 11/18/22 06:23 Dose: 40 mg Spironolactone (Spironolactone 25 Mg Tab) 25 mg PO DAILY [facility] Last Admin: 11/18/22 08:51 Dose: 25 mg Past medical history to include: Atrial fibrillation, COPD, GERD, hyperlipidemia, hypertension, after sleep apnea uses CPAP, hypothyroid, oxygen 3 history the daytime is 6 L at night, breast cancer , treated with chemoradiation and partial mastectomy, kidney stones, anxiety depression Social history: Patient smoked for about 40 years pack and a half a day and since 2020 few cigarettes a day did use marijuana in the past. Lives with her sister Physical examination: VITAL SIGNS: 97.8, 18, 17, 120/72, 97% on 3 L GENERAL: Laying in bed, less short of breath EYES: Pupils equal. Conjunctiva normal. HEENT: External appearance of nose and ears normal, oral cavity grossly normal. NECK: JVD not raised; masses not palpable. HEART: First and second heart sounds are normal; mild edema. LUNGS: Respiratory rate increased; diminished breath sounds, prolonged expiration. ABDOMEN: Soft, nontender, liver spleen not palpable, no masses palpable. PSYCH: Alert and oriented x3; mood and affect anxiousl. MUSCULOSKELETAL:No Clubbing/cyanosis;muscles-grossly intact, OA INVESTIGATIONS, reviewed in the clinical context: Procalcitonin 0.38 11/18/2022: White count 14.6 hemoglobin 9.1 platelets 592 potassium 4.1 BUN 29 creatinine 0.95 White count 8.5 hemoglobin 7.8 platelets 488 progression 3.9 BUN 19 creatinine 1.03 Troponin I 3 less than 0.012 proBNP 2560 Influenza type A/diabetes/RSV/COVID-19: Not detected EKG tracing personally reviewed by me-atrial fibrillation, nonspecific T-wave changes ST segment changes, rate 101 Chest x-ray film personally reviewed by me-left basilar infiltrate Assessment and plan: -Acute COPD exacerbation in a current smoker: Slow to respond DuoNeb, nebulized Pulmicort, IV Solu-Medrol -Left basilar pneumonia suspect gram-negative organism IV ceftriaxone. Procalcitonin 0.38. - Persistent atrial fibrillation , heart rate controlled. Telemetry. Toprol-XL 100 mg twice a day . Eliquis -Acute on Chronic congestive heart failure exacerbation from diastolic dysfunction EF 50-55%: Improving IV Lasix 40 mg every 12 -Nonobstructive CAD with 50% circumflex lesion, per cardiac cath -August 2022 Aspirin -Nicotine dependence, smoker Nicotine patch -Morbid obesity, BMI 51.6 Weight loss measures -Essential hypertension Toprol-XL -Depression Prozac, BuSpar -Hypothyroid Synthroid -GERD PPI -Full code Continue IV ceftriaxone, on DuoNeb, Solu-Medrol. Follow labs. Discussed with patient. Have the patient sit up in a chair. NAOMI Tadeo.
[2022-11-18 16:40] LABS: Glucose,Whole Blood 215 mg/dL (70-110)
[2022-11-18 19:48] LABS: Glucose,Whole Blood 209 mg/dL (70-110)
[2022-11-18] MEDS: ATORVASTATIN 20 MG TAB PO SCH (20:31)
[2022-11-19] MEDS: methylPREDNISolone SOD SUCCI 40 MG/ML 1 ML VIAL IV SCH ×2 (04:09→12:20)
[2022-11-19 06:07] LABS: Glucose,Whole Blood 267 mg/dL (70-110)
[2022-11-19] MEDS: LEVOTHYROXINE 137 MCG TAB PO SCH (06:18)
[2022-11-19] MEDS: FUROSEMIDE 10 MG/ML 4 ML VIAL IV SCH (06:18)
[2022-11-19] MEDS: INSULIN ASPART (NovoLOG) 100 UNIT/ML VIAL SQ SCH ×2 (06:29→12:18)
[2022-11-19] MEDS: PANTOPRAZOLE 40 MG TABLET PO SCH (06:29)
[2022-11-19 07:53] LABS: Anisocytosis Slight; HCT 29.8 % (34.0-46.0); HGB 8.5 gm/dL (11.4-16.0); Hypochromasia Marked; MCH 23.3 pg (25.0-35.0); MCHC 28.5 g/dL (31.0-37.0); MCV 81.5 fL (80.0-100.0); Mean Platelet Volume 7.9; Platelet Count 534 k/uL (150-450); RBC 3.66 m/uL (3.80-5.40); RDW 17.5 % (11.5-15.5); WBC 21.3 k/uL (3.8-10.6)
[2022-11-19] MEDS: IPRATROPIUM-ALBUTEROL 3 ML NEB INHALATION SCH ×3 (08:09→16:22)
[2022-11-19] MEDS: BUDESONIDE 1 MG/2 ML NEBU INHALATION SCH (08:09)
[2022-11-19] MEDS: APIXABAN 5 MG TAB PO SCH (09:06)
[2022-11-19] MEDS: busPIRone HCl 10 MG TAB PO SCH (09:06)
[2022-11-19] MEDS: ALPRAZolam 0.25 MG TAB PO PRN ×2 (09:06→15:57)
[2022-11-19] MEDS: SPIRONOLACTONE 25 MG TAB PO SCH (09:06)
[2022-11-19] MEDS: DILTIAZEM ORAL 30 MG TAB PO SCH ×3 (09:06→15:58)
[2022-11-19] MEDS: MAGNESIUM OXIDE 400 MG TAB PO SCH (09:06)
[2022-11-19] MEDS: FLUoxetine HCL 20 MG CAP PO SCH (09:06)
[2022-11-19] MEDS: METOPROLOL SUCCINATE (ER) 100 MG TAB.ER.24H PO SCH (09:06)
[2022-11-19] MEDS: NICOTINE 7MG/24HR PATCH TRANSDERM SCH (09:12)
[2022-11-19 09:29] LABS: Albumin 4.3 g/dL (3.5-5.0); Calcium 8.4 mg/dL (8.4-10.2); Magnesium 1.9 mg/dL (1.6-2.3); Potassium 4.2 mmol/L (3.5-5.1); Total Bilirubin 0.3 mg/dL (0.2-1.3); Total Protein 6.9 g/dL (6.3-8.2)
--- NOTE | 2022-11-19 10:51 | P.PN ---
Subjective Progress Note Date: 11/19/22 HISTORY OF PRESENTING ILLNESS This is a pleasant 61-year-old female past medical history significant for mild to moderate coronary artery disease, COPD, congestive heart failure, nonischemic cardiomyopathy, persistent atrial fibrillation, sick sinus syndrome, hypertension, dyslipidemia, former smoker, obstructive sleep apnea, hypothyroidism. She follows in the office with Dr. Sharp. We have been asked to see the patient for chest pain and CHF. Patient was recently hospitalized and discharged on 09/10, treated for chest discomfort status post cardiac catheterization with stable coronary artery disease with 50% circumflex stenosis unchanged, possible syncopal episode while having a bowel movement, persistent atrial fibrillation possible tachybradycardia syndrome. Patient was readmitted on 09/11 and was seen for bradycardia and Cardizem was resumed at a lower dose. There was concern the patient may have a degree of tachybradycardia syndrome but symptoms seem to be related to hypotension secondary to diuretics, ARB and chronic diarrhea. Patient now presents to the hospital due to complaints of shortness of breath been going on for 1-1/2-2 weeks. She states she is unable to walk even a very short distances without dyspnea. She states she is taking all of her medications as instructed. She's also had a weight gain and edema but not in her lower legs. She normally sleeps on 4-5 pillows a night. She complains of chest pain and discomfort to the top of her arms. Patient states that she diuresed well and has less edema and shortness of breath. Patient is seen today in the emergency center waiting for a bed of the cardiac stepdown unit. DIAGNOSTICS * EKG reveals atrial fibrillation with low voltage, ventricular rate 101 * Chest xray reveals increased interstitial density in the lower lung morales compared to old exams. Could be some minimal congestion or subcu segmental atelectasis. No pulmonary consolidation or obvious heart failure. * Laboratory reviewed, WBC 8.5, hemoglobin 7.8, platelet count 488. D-dimer 0.42. Potassium 3.9, BUN 19 and creatinine 1.03. Troponin negative 3. Liver function tests within normal limits. Influenza A, influenza B, RSV and Covid 19 not detected. ProBNP 2560. * Cardiac catheterization 08/2022 revealed LAD 1020 percent stenosis, mid circumflex 50% stenosis * Echocardiogram 08/2022 revealed EF 50-55%, mild pulmonary hypertension, mild tricuspid regurgitation * CT angiogram of the aorta 09/11/2022 with no evidence of thoracic or upper abdominal aortic aneurysm or dissection. There is cardiomegaly. Atherosclerotic vascular disease. No evidence of pulmonary embolism. No suspicious pulmonary mass. Large low density right adrenal mass consistent with benign disease. Left ovarian cyst. * Current home cardiac medications include eliquis 5 mg twice daily, atorvastatin 20 mg nightly, Cardizem CD 120 mg daily, Lasix 40 mg daily, losartan 100 mg daily, Toprol-XL 100 mg daily, Aldactone 25 mg daily 11/18 Patient is seen today on the cardiac stepdown unit. She has been continued on Lasix 40 mg every 8 hours. Repeat blood work reveals potassium 4.1, BUN 29 and creatinine 0.94. Hemoglobin 9.1, WBC 14.6. Patient is fully in place with good urine output and improvement of lower extremity edema. She is normally on home O2 at 3 L during the day and 6 on BiPAP at nighttime. 11/19 Patient is feeling well today. She has been on IV Lasix and diuresing well. Repeat blood work reveals hemoglobin of 8.5, BUN 47 and creatinine 1.2. Heart rate has been in the 90s, blood pressure 133/72. PHYSICAL EXAMINATION Vital signs reviewed CONSTITUTIONAL: No apparent distress. HEENT: Head is normocephalic. Pupils are equal, round. Sclerae anicteric. CHEST EXAMINATION: Crackles bilaterally. HEART EXAMINATION: Irregular rate and rhythm. S1, S2 heard. No murmurs, gallops or rub. ABDOMEN: Soft, nontender. EXTREMITIES: 2+ peripheral pulses, no lower extremity edema and no calf tenderness. NEUROLOGIC EXAMINATION: Patient is awake, alert and oriented x3. ASSESSMENT Chest pain with negative troponins, acute coronary syndrome ruled out Acute diastolic heart failure Persistent atrial fibrillation, on Eliquis COPD Anemia chronic Chronic heart failure with preserved ejection fraction History of nonischemic cardiomyopathy History of hypertension Dyslipidemia Former smoker Obstructive sleep apnea Hypothyroidism PLAN Continue patient on her home cardiac medications Transition IV Lasix to oral 40 mg twice daily Patient is cleared for discharge home, follow-up with Dr. Sharp in the office. Nurse practitioner note has been reviewed by physician. Signing provider agrees with the documented findings, assessment, and plan of care. Objective - Vital Signs Vital signs: Vital Signs Temp 97.4 F L 11/19/22 04:00 Pulse 94 11/19/22 08:28 Resp 18 11/19/22 04:00 BP 130/68 11/19/22 04:00 Pulse Ox 95 11/19/22 08:09 FiO2 6 11/19/22 04:09 Intake & Output 11/18/22 11/19/22 11/19/22 18:59 06:59 18:59 Intake Total 1190 Output Total 1100 Balance 90 Weight 143 kg 138 kg Intake: Oral 1190 Output: Urine 1100 Uretheral (Tadeo) 300 Other: Voiding Method Indwelling Catheter Toilet - Labs CBC & Chem 7: 11/19/22 06:57 11/19/22 06:57 Labs: Abnormal Lab Results - Last 24 Hours (Table) 11/17/22 11/18/22 11/18/22 Range/Units 08:04 06:47 11:47 WBC 14.6 H (3.8-10.6) k/uL RBC (3.80-5.40) m/uL Hgb 9.1 L (11.4-16.0) gm/dL Hct 33.4 L (34.0-46.0) % MCH 23.2 L (25.0-35.0) pg MCHC 27.3 L (31.0-37.0) g/dL RDW 17.6 H (11.5-15.5) % Plt Count 592 H (150-450) k/uL POC Glucose (mg/dL) 202 H (70-110) mg/dL Procalcitonin 0.38 H (0.02-0.09) ng/mL 11/18/22 11/18/22 11/19/22 Range/Units 16:38 19:47 06:06 WBC (3.8-10.6) k/uL RBC (3.80-5.40) m/uL Hgb (11.4-16.0) gm/dL Hct (34.0-46.0) % MCH (25.0-35.0) pg MCHC (31.0-37.0) g/dL RDW (11.5-15.5) % Plt Count (150-450) k/uL POC Glucose (mg/dL) 215 H 209 H 267 H (70-110) mg/dL Procalcitonin (0.02-0.09) ng/mL 11/19/22 Range/Units 06:57 WBC 21.3 H (3.8-10.6) k/uL RBC 3.66 L (3.80-5.40) m/uL Hgb 8.5 L (11.4-16.0) gm/dL Hct 29.8 L (34.0-46.0) % MCH 23.3 L (25.0-35.0) pg MCHC 28.5 L (31.0-37.0) g/dL RDW 17.5 H (11.5-15.5) % Plt Count 534 H (150-450) k/uL POC Glucose (mg/dL) (70-110) mg/dL Procalcitonin (0.02-0.09) ng/mL
[2022-11-19 11:59] LABS: Glucose,Whole Blood 136 mg/dL (70-110)
[2022-11-19] MEDS: HYDROcodone/APAP 5-325MG 1 EACH TAB PO PRN (12:20)
[2022-11-19 12:39] VITALS: BP 121/75; RESP 18; TEMP 98.4
[2022-11-19] MEDS ORDERED: FUROSEMIDE 40 MG TAB PO SCH (16:00)
[2022-11-19 16:33] VITALS: PULSE 90
--- NOTE | 2022-11-19 18:38 | P.DS ---
Providers Date of admission: 11/16/22 20:12 Expected date of discharge: 11/19/22 Attending physician: Rosas Edgar Consults: 11/16/22 20:12 Consult Physician Routine Consulting Provider: Jean Carlos Manjarrez Consult Reason/Comments: chf, cp Do you want consulting provider notified?: Yes Primary care physician: Pancho [facility] Course: Chief Complaint: Short of breath This is a pleasant 61-year-old patient follows Dr. Berg. Chronic stable medical conditions include atrial fibrillation, COPD, GERD, hyperlipidemia, hypertension, obstructive sleep apnea uses CPAP, hypothyroid, uses 3 L of oxygen during the daytime and 6 L at night, had breast cancer treated with chemoradiation and partial mastectomy, kidney stones, anxiety depression. Patient been a long-standing smoker and in beginning of 2020 Back to few cigarettes here and there. Atrial fibrillation.. Patient presents with a few days of decrease in energy. Getting easily short of breath even rolling in bed. Wheezing. Cough some sputum production. No fever no chills. Appetite is okay. Tired rundown. Treated for CHF exacerbation in the ER and making good amount of urine. Breathing feeling a shade better. Admitted with acute COPD exacerbation, pneumonia, atrial fibrillation, acute CHF exacerbation. DuoNeb. Nebulized bronchodilators. IV Lasix. In 11/18/2022: Feeling a bit better. A bit less short of breath. Made good urine output. On IV Lasix. We will discontinue Tadeo. Have the patient sit up in a chair. Eating better. 11/19/2022: Breathing better. Patient still bringing up some sputum. Patient be given a rapid course of prednisone taper in next 4 days. Patient is a cardiac procedure coming up. Antibiotics to be done in next 3 days. Patient again counseled about smoking at length. Lasix as per cardiology. Patient has a procedure coming up with Dr. Jaxson Sharp next week Discussion and discharge planning more than 35 minutes Past medical history to include: Atrial fibrillation, COPD, GERD, hyperlipidemia, hypertension, after sleep apnea uses CPAP, hypothyroid, oxygen 3 history the daytime is 6 L at night, breast cancer , treated with chemoradiation and partial mastectomy, kidney stones, anxiety depression Social history: Patient smoked for about 40 years pack and a half a day and since 2020 few cigarettes a day did use marijuana in the past. Lives with her sister Physical examination: VITAL SIGNS: 98.4, 85, 18, 121/75, 97% on 3 L GENERAL: Sitting by the window, breathing better EYES: Pupils equal. Conjunctiva normal. HEENT: External appearance of nose and ears normal, oral cavity grossly normal. NECK: JVD not raised; masses not palpable. HEART: First and second heart sounds are normal; mild edema. LUNGS: Respiratory rate normal; diminished breath sounds, ABDOMEN: Soft, nontender, liver spleen not palpable, no masses palpable. PSYCH: Alert and oriented x3; mood and affect anxiousl. MUSCULOSKELETAL:No Clubbing/cyanosis;muscles-grossly intact, OA INVESTIGATIONS, reviewed in the clinical context: Procalcitonin 0.18 Procalcitonin 0.38 11/18/2022: White count 14.6 hemoglobin 9.1 platelets 592 potassium 4.1 BUN 29 creatinine 0.95 White count 8.5 hemoglobin 7.8 platelets 488 progression 3.9 BUN 19 creatinine 1.03 Troponin I 3 less than 0.012 proBNP 2560 Influenza type A/diabetes/RSV/COVID-19: Not detected EKG tracing personally reviewed by me-atrial fibrillation, nonspecific T-wave changes ST segment changes, rate 101 Chest x-ray film personally reviewed by me-left basilar infiltrate Assessment and plan: -Acute COPD exacerbation in a current smoker: Better DuoNeb, nebulized Pulmicort, discharge in 4 days a rapid prednisone taper -Left basilar pneumonia suspect gram-negative organism IV ceftriaxone. Procalcitonin 0.38. 3 more days of Ceftin 5 mg twice a day - Persistent atrial fibrillation , heart rate controlled. Telemetry. Toprol-XL 100 mg twice a day . Eliquis -Acute on Chronic congestive heart failure exacerbation from diastolic dysfunction EF 50-55%: Improving IV Lasix 40 mg every 12. Discharged on Lasix 40 mg twice a day. -Nonobstructive CAD with 50% circumflex lesion, per cardiac cath -August 2022 Aspirin -Nicotine dependence, smoker Nicotine patch -Morbid obesity, BMI 51.6 Weight loss measures -Essential hypertension Toprol-XL -Depression Prozac, BuSpar -Hypothyroid Synthroid -GERD PPI -Full code Disposition: Home Plan - Discharge Summary New Discharge Prescriptions: New Albuterol Sulfate [Albuterol Sulfate Hfa] 1 puff PO Q4-6H #8.5 gm cefUROXime axetiL [Ceftin] 500 mg PO BID #6 tab predniSONE 0 mg PO DIRECTED #10 tab Budesonide/Formoterol Fumarate [Symbicort 160-4.5 Mcg Inhaler] 1 puff INHALATION BID #10.2 gm Nicotine 7Mg/24Hr Patch [Habitrol] 1 patch TRANSDERM DAILY #14 patch Continue Atorvastatin [Lipitor] 20 mg PO HS Levothyroxine Sodium [Synthroid] 137 mcg PO DAILY busPIRone HCl [Buspar] 10 mg PO BID Albuterol Sulfate [Ventolin HFA] 1 - 2 puff INHALATION Q6H PRN PRN Reason: sob FLUoxetine HCL [PROzac] 40 mg PO DAILY Spironolactone [Aldactone] 25 mg PO DAILY Potassium Chloride ER [K-Dur 10] 10 meq PO DAILY Apixaban [Eliquis] 5 mg PO BID Omeprazole 20 mg PO DAILY Acetaminophen Tab [Tylenol] 650 mg PO Q6HR PRN tab PRN Reason: Mild Pain Or Fever > 100.5 Metoprolol Succinate (ER) [Toprol XL] 100 mg PO BID Changed Furosemide [Lasix] 40 mg PO BID #60 tab No Action Diltiazem Cd [Cardizem CD] 120 mg PO DAILY #90 cap Losartan Potassium [Cozaar] 100 mg PO DAILY Discharge Medication List Apixaban [Eliquis] 5 mg PO BID 10/01/21 [History] Atorvastatin [Lipitor] 20 mg PO HS 10/01/21 [History] Levothyroxine Sodium [Synthroid] 137 mcg PO DAILY 10/01/21 [History] Omeprazole 20 mg PO DAILY 10/01/21 [History] busPIRone HCl [Buspar] 10 mg PO BID 09/05/22 [History] Acetaminophen Tab [Tylenol] 650 mg PO Q6HR PRN tab 09/14/22 [Rx] Diltiazem Cd [Cardizem CD] 120 mg PO DAILY #90 cap 09/14/22 [Rx] Albuterol Sulfate [Ventolin HFA] 1 - 2 puff INHALATION Q6H PRN 11/01/22 [History] FLUoxetine HCL [PROzac] 40 mg PO DAILY 11/01/22 [History] Losartan Potassium [Cozaar] 100 mg PO DAILY 11/01/22 [History] Metoprolol Succinate (ER) [Toprol XL] 100 mg PO BID 11/01/22 [History] Potassium Chloride ER [K-Dur 10] 10 meq PO DAILY 11/01/22 [History] Spironolactone [Aldactone] 25 mg PO DAILY 11/01/22 [History] Albuterol Sulfate [Albuterol Sulfate Hfa] 1 puff PO Q4-6H #8.5 gm 11/19/22 [Rx] Budesonide/Formoterol Fumarate [Symbicort 160-4.5 Mcg Inhaler] 1 puff INHALATION BID #10.2 gm 11/19/22 [Rx] Furosemide [Lasix] 40 mg PO BID #60 tab 11/19/22 [Rx] Nicotine 7Mg/24Hr Patch [Habitrol] 1 patch TRANSDERM DAILY #14 patch 11/19/22 [Rx] cefUROXime axetiL [Ceftin] 500 mg PO BID #6 tab 11/19/22 [Rx] predniSONE 0 mg PO DIRECTED #10 tab 11/19/22 [Rx] Follow up Appointment(s)/Referral(s): Jaxson Sharp MD [STAFF PHYSICIAN] - 11/29/22 9:30 am Pancho Berg DO [Primary Care Provider] - 11/24/22 11:00 am Patient Instructions/Handouts: Heart Failure (DC) Discharge Disposition: HOME SELF-CARE
== END 2022-11-19 16:43 | disposition home or self-care (01) | DRG 291 ==
LOC: EC 17:56 → 3SCARD 20:12
PROVIDERS: ADMIT Hospitalist; ATTEND Hospitalist
DX: I11.0 Hypertensive heart disease with heart failure (principal); I50.33 Acute on chronic diastolic (congestive) heart failure; J15.6 Pneumonia due to other Gram-negative bacteria; J44.1 Chronic obstructive pulmonary disease with (acute) exacerbation; I48.19 Other persistent atrial fibrillation; Z68.43 Body mass index [BMI] 50.0-59.9, adult; J44.0 Chronic obstructive pulmonary disease with (acute) lower respiratory infection; I27.20 Pulmonary hypertension, unspecified; E27.8 Other specified disorders of adrenal gland; I49.5 Sick sinus syndrome; Z99.81 Dependence on supplemental oxygen; I42.8 Other cardiomyopathies; Z79.01 Long term (current) use of anticoagulants; I07.1 Rheumatic tricuspid insufficiency; F32.A Depression, unspecified; E66.01 Morbid (severe) obesity due to excess calories; D64.9 Anemia, unspecified; E03.9 Hypothyroidism, unspecified; G47.33 Obstructive sleep apnea (adult) (pediatric); I25.10 Atherosclerotic heart disease of native coronary artery without angina pectoris; E78.5 Hyperlipidemia, unspecified; N83.202 Unspecified ovarian cyst, left side; K21.9 Gastro-esophageal reflux disease without esophagitis; F17.210 Nicotine dependence, cigarettes, uncomplicated; Z20.822 Contact with and (suspected) exposure to COVID-19; Z79.899 Other long term (current) drug therapy; Z79.890 Hormone replacement therapy; Z88.5 Allergy status to narcotic agent; Z88.0 Allergy status to penicillin; Z85.3 Personal history of malignant neoplasm of breast; Z87.442 Personal history of urinary calculi; Z92.3 Personal history of irradiation; Z92.21 Personal history of antineoplastic chemotherapy; Z90.12 Acquired absence of left breast and nipple
CPT/HCPCS: 36415; 71046; 80048; 80053; 83605; 83735; 83880; 84145; 84484; 85025; 85027; 85379; 85610; 85730; 87636; 93005; 94640; 94660; 94760; 96365; 96375; 96376; 99285

== ENCOUNTER → 2022-11-30 | Outpatient (CLI) | payer OTHER ==
--- NOTE | 2022-11-30 14:47 | XR ---
EXAMINATION TYPE: XR chest 2V DATE OF EXAM: 11/30/2022 COMPARISON: 11/16/2022 TECHNIQUE: PA and lateral views submitted. HISTORY: Shortness of breath FINDINGS: The lungs are clear and there is no pneumothorax, pleural effusion, or focal pneumonia. Heart size normal and no overt failure. Osseous structures demonstrate hypertrophic and degenerative changes of the spine. Bilateral pleural-based thickening and cardiomegaly noted. Coarsened interstitium. Hyperin flation suggests COPD. IMPRESSION: 1. Cardiomegaly and COPD. Coarsened interstitium could reflect chronic interstitial lung disease as p ulmonary fibrosis. Correlate clinically to exclude interstitial pneumonitis. 2. Stable bilateral pleural thickening which may be associated with pleuritis, correlate clinically.
[2022-11-30 22:27] LABS: HGB 7.6 g/dL (12.0-15.0); MCHC 25.3 g/dL (32.0-37.0); MCV 90.6 fL (80.0-97.0); Mean Platelet Volume 9.6 fL (9.5-12.2); NRBC Per 100 WBC 0 /100 WBCS (0.0-0.0); Platelet Count 574 X 10*3/uL (140-440); RBC 3.31 X 10*6/uL (4.10-5.20); RDW 18.9 % (11.5-14.5)
[2022-11-30 22:54] LABS: ALT 19 U/L (8-44); AST 23 U/L (13-35); African American GFR (CKD) 56.5 (60.0-200.0); Albumin 4.4 g/dL (3.8-4.9); Alkaline Phosphatase 101 U/L (41-126); BUN/Creat Ratio 23.83 Ratio (12.00-20.00); Blood Urea Nitrogen 28.6 mg/dL (9.0-27.0); Calcium 9.3 mg/dL (8.7-10.3); Carbon Dioxide 27.4 mmol/L (20.0-27.5); Chloride 105 mmol/L (96-109); Globulin 2.1 g/dL (1.6-3.3); Glucose 93 mg/dL (70-110); Non-African American GFR(CKD) 48.7 (60.0-200.0); Potassium 4.9 mmol/L (3.5-5.5); Sodium 143 mmol/L (135-145); Total Bilirubin <0.15 mg/dL (0.30-1.20); Total Protein 6.5 g/dL (6.2-8.2)
[2022-11-30 23:05] LABS: Basophils # (A) 0.06 X 10*3/uL (0.00-0.10); Basophils % (A) 0.3 %; Eosinophils # (A) 0.21 X 10*3/uL (0.04-0.35); Eosinophils % (A) 1.2 %; Immature Grans, Automated 4.5 %; Lymphocytes # (A) 2.39 X 10*3/uL (0.90-5.00); Lymphocytes % (A) 13.8 %; Monocytes # (A) 1.57 X 10*3/uL (0.20-1.00); Monocytes % (A) 9.1 %; Neutrophils % (A) 71.1 %
[2022-11-30 23:06] LABS: Elliptocytes 2+
== END | disposition home or self-care (01) ==
LOC: RADXRMAIN 14:27
PROVIDERS: ATTEND Internal Medicine Clinical Cardiac Electrophysiology
DX: J44.9 Chronic obstructive pulmonary disease, unspecified (principal); I48.21 Permanent atrial fibrillation; I51.7 Cardiomegaly; J92.9 Pleural plaque without asbestos
CPT/HCPCS: 71046; 80053; 85025

== ENCOUNTER 2023-02-22 18:19 | Inpatient (IN) | payer OTHER ==
--- NOTE | 2023-02-22 18:33 | ED ---
Chest Pain HPI - General Chief Complaint: Chest Pain Stated Complaint: SOB/CHEST PAIN Time Seen by Provider: 02/22/23 18:28 Source: patient, RN notes reviewed, old records reviewed Mode of arrival: wheelchair Limitations: no limitations - History of Present Illness Initial Comments: This is a 63-year-old female DF for evaluation she presents today for evaluation of chest pain today. Patient has history of chest pain also has history of H a fibrillation feels like her heart is in current A. fib with increased heart rate. She does complain of increased chest pain shortness of breath. History of A. fib again history of COPD MD Complaint: chest pain, other (Shortness of breath) Pain Location: left chest Pain Radiation: none Severity: mild Severity scale (1-10): 3 Worsens With: nothing Anginal Symptoms: dyspnea Other Symptoms: palpitations Treatments Prior to Arrival: none - Related Data Home Medications Medication Instructions Recorded Confirmed Apixaban [Eliquis] 5 mg PO BID 10/01/21 02/22/23 Atorvastatin [Lipitor] 20 mg PO HS 10/01/21 02/22/23 Levothyroxine Sodium [Synthroid] 137 mcg PO DAILY 10/01/21 02/22/23 Omeprazole 20 mg PO DAILY 10/01/21 02/22/23 Albuterol Sulfate [Ventolin HFA] 1 - 2 puff INHALATION RT-Q6H PRN 11/01/22 02/22/23 FLUoxetine HCL [PROzac] 40 mg PO DAILY 11/01/22 02/22/23 Losartan Potassium [Cozaar] 100 mg PO DAILY 11/01/22 02/22/23 Metoprolol Succinate (ER) [Toprol 100 mg PO BID 11/01/22 02/22/23 XL] Potassium Chloride ER [K-Dur 10] 10 meq PO DAILY 11/01/22 02/22/23 Spironolactone [Aldactone] 25 mg PO DAILY 11/01/22 02/22/23 Budesonide/Formoterol Fumarate 1 puff INHALATION RT-BID 02/22/23 02/22/23 [Symbicort 160-4.5 Mcg Inhaler] Previous Rx's Medication Instructions Recorded Acetaminophen Tab [Tylenol] 650 mg PO Q6HR PRN tab 09/14/22 Diltiazem Cd [Cardizem CD] 120 mg PO DAILY #90 cap 09/14/22 Furosemide [Lasix] 40 mg PO BID #60 tab 11/19/22 Allergies Allergy/AdvReac Type Severity Reaction Status Date / Time morphine Allergy Anaphylaxis Verified 02/22/23 20:15 Penicillins AdvReac Nausea & Verified 02/22/23 20:15 Vomiting Review of Systems ROS Statement: Those systems with pertinent positive or pertinent negative responses have been documented in the HPI. ROS Other: All systems not noted in ROS Statement are negative. EKG Findings - EKG Comments: EKG Findings:: EKG is A. fib with RVR 106 QRS 90 QTC 376 - EKG Results: EKG: interpreted by ITZEL Past Medical History Past Medical History: Atrial Fibrillation, Heart Failure, COPD, Hypertension Additional Past Medical History / Comment(s): O2 use 24hrs per day, 3L/NC during the day, 6L at night. Hx left breast cancer 4 yrs ago treated with Chemo/Radiation and partial Mastectomy. NO BLOOD PRESSURES/LAB DRAWS ON LEFT ARM. Hx kidney stones. Hx kidney failure after Hysterectomy, no problems since. History of Any Multi-Drug Resistant Organisms: None Reported Past Surgical History: Cholecystectomy, Hysterectomy Additional Past Surgical History / Comment(s): Left partial mastectomy and lymph nodes removed, D&C's, Radioactive Iodine Treatment for Thyroid. Past Anesthesia/Blood Transfusion Reactions: Postoperative Nausea & Vomiting (PONV) Past Psychological History: Anxiety, Depression Smoking Status: Current some day smoker Past Alcohol Use History: Occasional Past Drug Use History: None Reported - Past Family History Mother Family Medical History: Cancer Father Family Medical History: Cancer Brother(s) Family Medical History: Cancer Son(s) Family Medical History: Deep Vein Thrombosis (DVT), Pulmonary Embolus General Exam Limitations: no limitations General appearance: alert, in no apparent distress, anxious Head exam: Present: atraumatic, normocephalic, normal inspection Eye exam: Present: normal appearance, PERRL, EOMI. Absent: scleral icterus, conjunctival injection, periorbital swelling ENT exam: Present: normal exam, mucous membranes moist Neck exam: Present: normal inspection. Absent: tenderness, meningismus, lymphadenopathy Respiratory exam: Present: respiratory distress, wheezes, rales, accessory muscle use, decreased breath sounds, prolonged expiratory. Absent: rhonchi, stridor Cardiovascular Exam: Present: tachycardia, irregular rhythm, normal heart sounds. Absent: systolic murmur, diastolic murmur, rubs, gallop, clicks GI/Abdominal exam: Present: soft, normal bowel sounds. Absent: distended, ten derness, guarding, rebound, rigid Extremities exam: Present: normal inspection, full ROM, normal capillary refill. Absent: tenderness, pedal edema, joint swelling, calf tenderness Back exam: Present: normal inspection Neurological exam: Present: alert, oriented X3, CN II-XII intact Psychiatric exam: Present: normal affect, normal mood Skin exam: Present: warm, dry, intact, normal color. Absent: rash Course Vital Signs 02/22/23 02/22/23 18:20 19:57 Temperature 98.0 F Pulse Rate 110 H 85 Respiratory 26 H Rate Blood Pressure 176/104 O2 Sat by Pulse 96 Oximetry - Reevaluation(s) Reevaluation #1: 02/22/23 20:47 Record is reviewed Reevaluation #2: 02/22/23 20:47 A she has no real improvement in the ER, patient breathing maybe worse and currently Reevaluation #3: 02/22/23 20:49 Patient informed of results and questions answered Reevaluation #4: 02/22/23 20:49 Was pt. sent in by a medical professional or institution? @ -no Did you speak to anyone other than the patient for history? @ -no Did you review nursing and triage notes? @ -agree Were old charts reviewed? @ -no Differential Diagnosis? @ -dyspnea EKG interpreted by me (3pts min.)? @ -yes X-rays interpreted by me (1pt min.)? @ -yes CT interpreted by me (1pt min.)? @ -no U/S interpreted by me (1pt. min.)? @ -no What testing was considered but not performed? (CT, X-rays, U/S, labs)? Why? @ -no What meds were considered but not given? Why? @ -no Did you discuss the management of the patient with other professionals? @ -no Did you reconcile home meds? @ -yes Was smoking cessation discussed for >3mins.? @ -no Was critical care preformed (if so, how long)? @ -no Were there social determinants of health that impacted care today? How? (Homelessness, low income, unemployed, alcoholism, drug addiction, transportation, low edu. Level, literacy, decrease access to med. care, fpc, rehab)? @ -no Was there de-escalation of care discussed even if they declined? (Discuss DNR or withdrawal of care, Hospice)? @ -no What co-morbidities impacted this encounter? (DM, HTN, Smoking, COPD, CAD, Can cer, CVA,, sleep apnea, morbid obesity) @ -no Was patient admitted / discharged? @ -admit Undiagnosed new problem with uncertain prognosis? @ -no Drug Therapy requiring intensive monitoring for toxicity (Heparin, Nitro, Insulin, Cardizem)? @ -no Were any procedures done? @ -no Diagnosis/symptom? @ -COPD,CHF Acute, or Chronic, or Acute on Chronic? @ -acute on chronic Uncomplicated (without systemic symptoms) or Complicated (systemic symptoms)? @ -uncomplicated Side effects of treatment? @ -no Exacerbation, Progression, or Severe Exacerbation] @ -severe exacerbtaion Poses a threat to life or bodily function? @ -no Chest Pain MDM - MDM 62 female to the emergency department for evaluation of increased cough and congestion severe shortness of breath weakness lightheadedness and dizziness. Patient here for evaluation of shortness of breath found to have CHF and COPD exacerbation, will admit for further evaluation management treatment diuresis breathing treatments Disposition Clinical Impression: Congestive heart failure, Atypical chest pain, COPD (chronic obstructive pulmonary disease) Disposition: ADMITTED IP TO THIS HOSP Condition: Fair Is patient prescribed a controlled substance at d/c from ED?: No Referrals: Pancho Berg DO [Primary Care Provider] - 1-2 days
[2023-02-22] MEDS ORDERED: IPRATROPIUM-ALBUTEROL 3 ML NEB INHALATION STA (19:29)
[2023-02-22] MEDS ORDERED: SODIUM CHLORIDE 0.9% 500 ML 500 ML IV STA (19:29)
[2023-02-22] MEDS ORDERED: SODIUM CHLORIDE 0.9% 1,000 ML IV STA (19:29)
[2023-02-22 19:38] LABS: Anisocytosis Slight; Basophils % (A) 0 %; Eosinophils # (A) 0.2 k/uL (0-0.7); Eosinophils % (A) 2 %; HCT 30.2 % (34.0-46.0); HGB 8.4 gm/dL (11.4-16.0); Hypochromasia Marked; Lymphocytes # (A) 1.2 k/uL (1.0-4.8); Lymphocytes % (A) 14 %; MCH 22.6 pg (25.0-35.0); MCHC 27.8 g/dL (31.0-37.0); MCV 81.2 fL (80.0-100.0); Mean Platelet Volume 6.9; Monocytes # (A) 0.5 k/uL (0-1.0); Monocytes % (A) 6 %; Neutrophils # (A) 6.5 k/uL (1.3-7.7); Neutrophils % (A) 75 %; Platelet Count 455 k/uL (150-450); RBC 3.72 m/uL (3.80-5.40); RDW 16.6 % (11.5-15.5); WBC 8.6 k/uL (3.8-10.6)
[2023-02-22] MEDS ORDERED: HYDROmorphone 1 MG/ML 1 ML SYRINGE IVP STA (19:49)
--- NOTE | 2023-02-22 19:51 | XR ---
EXAMINATION TYPE: XR chest 1V portable DATE OF EXAM: 02/22/2023 7:45 PM COMPARISON: Chest radiographs from 11/30/2022 TECHNIQUE: XR chest 1V portable Frontal view of the chest. CLINICAL INDICATION:Female, 62 years old with history of sob; FINDINGS: Lungs/Pleura: There is no evidence of pleural effusion, focal consolidation, or pneumothorax. Pulmonary vascularity: Pulmonary vascular congestion. Heart/mediastinum: Cardiomediastinal silhouette is enlarged and stable. Musculoskeletal: No acute osseous pathology. IMPRESSION: Cardiomegaly and mild pulmonary vascular congestion. Correlate with BNP for congestive heart failure.
[2023-02-22 20:00] LABS: Albumin 4.1 g/dL (3.5-5.0); Calcium 8.7 mg/dL (8.4-10.2); Magnesium 1.9 mg/dL (1.6-2.3); Potassium 4.1 mmol/L (3.5-5.1); Total Bilirubin 0.5 mg/dL (0.2-1.3); Total Protein 6.7 g/dL (6.3-8.2)
[2023-02-22 20:29] LABS: Partial Thromboplastin Time 25.7 sec (22.0-30.0)
[2023-02-22] MEDS ORDERED: ONDANSETRON 4 MG/2 ML VIAL IVP STA (20:44)
[2023-02-22] MEDS ORDERED: IPRATROPIUM-ALBUTEROL 3 ML NEB INHALATION PRN (22:06)
[2023-02-22] MEDS ORDERED: methylPREDNISolone SOD SUCCI 125 MG/2 ML VIAL IV STA (22:06)
[2023-02-22] MEDS ORDERED: NALOXONE 0.4 MG/ML 1 ML VIAL IVP PRN (22:06)
[2023-02-22] MEDS ORDERED: MAG HYDROX/AL HYDROX/SIMETH 30 ML, HYOSCYAMINE ELIXIR 10 ML, LIDOCAINE VISCOUS 2% 10 ML PO STA ×3 (22:12)
[2023-02-23] MEDS: APIXABAN 5 MG TAB PO SCH ×3 (00:53→19:47)
[2023-02-23] MEDS: ATORVASTATIN 20 MG TAB PO SCH ×2 (00:53→19:49)
[2023-02-23] MEDS: methylPREDNISolone SOD SUCCI 125 MG/2 ML VIAL IV SCH ×5 (00:53→23:39)
[2023-02-23] MEDS: ACETAMINOPHEN TAB 325 MG TAB PO PRN ×3 (01:28→19:48)
[2023-02-23] MEDS: FUROSEMIDE 10 MG/ML 4 ML VIAL IV SCH ×3 (01:28→19:48)
--- NOTE | 2023-02-23 06:19 | P.CNPUL ---
History of Present Illness Consult date: 02/23/23 Requesting physician: Anthony Lind Reason for consult: dyspnea Chief complaint: Shortness of breath and chest pressure History of present illness: I am seeing this patient in new consultation today 02/23/2023 for suspected acute exacerbation of CHF. Patient is a 63-year-old white female with past medical history of congestive heart failure, atrial fibrillation, sick sinus syndrome, COPD, chronic oxygen dependence, obstructive sleep apnea with home CPAP, coronary artery disease, hypertension, history of left breast cancer s/p partial mastectomy, hypothyroidism, and Ex smoker. Patient normally follows with Dr. Cecilia Mario for management of her COPD, and takes a combination of Symbicort and albuterol. Patient came to the emergency room yesterday evening with chief complaints of shortness of breath, non-radiating chest pressure, and increased lower extremity swelling. Denies any recent sick contacts. Denies fever, chills, change in her chronic cough, hemoptysis. Patient is currently sitting up in bed, on auto CPAP with a minimum pressure 5 and maximum pressure of 12 and supplemental 6 L/m of oxygen, in no acute distress. Patient's chest x-ray on arrival showed some cardiomegaly and mild pulmonary vascular congestion. NT proBNP was elevated at 2230. Patient normally takes Lasix 40 mg twice a day at home. Patient was found to be in atrial fibrillation with rate of 106 BPM on arrival. She is anticoagulated on Eliquis. Troponins negative. ECG showed no acute ischemic changes. Vital signs are stable at this time. Review of Systems REVIEW OF SYSTEMS: CONSTITUTIONAL: Denies any recent significant weight loss or weight gain. EYES: Denies change in vision. EARS, NOSE, MOUTH, THROAT: Denies headaches, denies sore throat. CARDIOVASCULAR: See HPI RESPIRATORY: see HPI GASTROINTESTINAL: Denies change in appetite, abdominal pain, nausea and vomiting, or diarrhea GENITOURINARY: Denies hematuria, denies infections. MUSKULOSKELETAL: Denies pain, admits bilateral lower extremity swelling INTEGUMENTARY: Denies rash, denies eczema. NEUROLOGICAL: Denies recent memory loss, no recent seizure activity. PSYCHIATRIC: Denies anxiety, denies depression. HEMATOLOGIC/LYMPHATIC: Denies anemia, denies enlarged lymph node Past Medical History Past Medical History: Atrial Fibrillation, Heart Failure, COPD, Hypertension, Thyroid Disorder Additional Past Medical History / Comment(s): O2 use 24hrs per day, 3L/NC during the day, 6L at night. Hx left breast cancer 4 yrs ago treated with Chemo/Radiation and partial Mastectomy. NO BLOOD PRESSURES/LAB DRAWS ON LEFT ARM. Hx kidney stones. Hx kidney failure after Hysterectomy, no problems since. History of Any Multi-Drug Resistant Organisms: None Reported Past Surgical History: Cholecystectomy, Hysterectomy Additional Past Surgical History / Comment(s): Left partial mastectomy and lymph nodes removed, D&C's, Radioactive Iodine Treatment for Thyroid. Past Anesthesia/Blood Transfusion Reactions: Postoperative Nausea & Vomiting (PONV) Past Psychological History: Anxiety, Depression Additional Psychological History / Comment(s): Panic attacks, night terrors Smoking Status: Current some day smoker Past Alcohol Use History: Occasional Additional Past Alcohol Use History / Comment(s): Quit smoking 3 weeks ago, smoked for 40 yrs, 1-09/01 ppd. Past Drug Use History: None Reported Additional Drug Use History / Comment(s): Uses Marijuana edibles. Aware no use 24 hrs prior to procedure. - Past Family History Mother Family Medical History: Cancer Father Family Medical History: Cancer Brother(s) Family Medical History: Cancer Son(s) Family Medical History: Deep Vein Thrombosis (DVT), Pulmonary Embolus Medications and Allergies Home Medications Medication Instructions Recorded Confirmed Type Apixaban [Eliquis] 5 mg PO BID 10/01/21 02/22/23 History Atorvastatin [Lipitor] 20 mg PO HS 10/01/21 02/22/23 History Levothyroxine Sodium [Synthroid] 137 mcg PO DAILY 10/01/21 02/22/23 History Omeprazole 20 mg PO DAILY 10/01/21 02/22/23 History Acetaminophen Tab [Tylenol] 650 mg PO Q6HR PRN tab 09/14/22 02/22/23 Rx Diltiazem Cd [Cardizem CD] 120 mg PO DAILY #90 cap 09/14/22 02/22/23 Rx Albuterol Sulfate [Ventolin HFA] 1 - 2 puff INHALATION RT-Q6H PRN 11/01/22 02/22/23 History FLUoxetine HCL [PROzac] 40 mg PO DAILY 11/01/22 02/22/23 History Losartan Potassium [Cozaar] 100 mg PO DAILY 11/01/22 02/22/23 History Metoprolol Succinate (ER) [Toprol 100 mg PO BID 11/01/22 02/22/23 History XL] Potassium Chloride ER [K-Dur 10] 10 meq PO DAILY 11/01/22 02/22/23 History Spironolactone [Aldactone] 25 mg PO DAILY 11/01/22 02/22/23 History Furosemide [Lasix] 40 mg PO BID #60 tab 11/19/22 02/22/23 Rx Budesonide/Formoterol Fumarate 1 puff INHALATION RT-BID 02/22/23 02/22/23 History [Symbicort 160-4.5 Mcg Inhaler] Allergies Allergy/AdvReac Type Severity Reaction Status Date / Time morphine Allergy Anaphylaxis Verified 02/22/23 20:15 Penicillins AdvReac Nausea & Verified 02/22/23 20:15 Vomiting Physical Exam Vitals: Vital Signs Temp Pulse Pulse Resp BP BP Pulse Ox 02/23/23 01:34 97.9 F 94 122/69 94 L 02/22/23 23:16 97.8 F 68 17 161/71 96 02/22/23 22:00 98.4 F 82 18 142/87 98 02/22/23 21:00 84 18 153/74 98 02/22/23 20:00 86 16 140/87 100 02/22/23 19:57 85 02/22/23 18:20 98.0 F 110 H 26 H 176/104 96 Intake and Output 02/22/23 02/22/23 02/23/23 14:59 22:59 06:59 Other: Weight 140.614 kg GENERAL EXAM: Alert, morbidly obese 62-year-old white female, comfortable in no apparent distress. HEAD: Normocephalic and atraumatic EYES: Normal reaction of pupils, equal size. NOSE: Clear with pink turbinates. THROAT: No erythema or exudates. NECK: No masses, no JVD. CHEST: No chest wall deformity. LUNGS: Equal air entry with bibasilar crackles. No wheeze, rhonchi or dullness. On auto CPAP with supplemental oxygen at 6 L/m. No conversational dyspnea or accessory muscle use.. CVS: S1 and S2 normal with no audible murmur, irregular rhythm. No extra heart sounds ABDOMEN: No hepatosplenomegaly, active bowel sounds, no guarding or rigidity. SPINE: No scoliosis or deformity SKIN: No rashes CENTRAL NERVOUS SYSTEM: No focal deficits, tone is normal in all 4 extremities. EXTREMITIES: There is mild nonpitting peripheral edema. No clubbing, or cyanosis. Peripheral pulses are intact. Results - Laboratory Findings CBC and BMP: 02/22/23 19:31 02/22/23 19:31 PT/INR, D-dimer PT 11.0 sec (9.0-12.0) 02/22/23 19:31 INR 1.0 (<1.2) 02/22/23 19:31 Abnormal lab findings: Abnormal Labs 02/22/23 02/22/23 19:31 19:31 RBC 3.72 L Hgb 8.4 L Hct 30.2 L MCH 22.6 L MCHC 27.8 L RDW 16.6 H Plt Count 455 H BUN 19 H Glucose 111 H - Diagnostic Findings Chest x-ray: image reviewed Assessment and Plan Assessment: Acute on chronic hypoxic respiratory failure secondary to acute exacerbation of diastolic congestive heart failure and COPD exacerbation. Normally wears 3 L nasal cannula at home awake and 6 L/m while sleep. Obstructive sleep apnea with home CPAP. She cannot recall her settings, and is on auto CPAP with a minimum pressure of 5 and maximum pressure of 12 with an additional 6 L/m supplemental oxygen Paroxysmal atrial fibrillation, rate is better controlled. Currently on Eliquis for anticoagulation Chest pain, acute ischemic event ruled out Hypertension History of left sided breast cancer post partial mastectomy Hypothyroidism Ex-smoker Plan: Patient's medications, labs, chest x-ray reviewed Diurese the patient with Lasix 40 mg IV twice a day Repeat labs Repeat chest x-ray tomorrow Continue bronchodilators, IV Solu-Medrol Start the patient on Symbicort inhaler Restart cardiac medications Eliquis for anticoagulation We will continue to follow I have personally seen and examined the patient, performed the documentation and the assessment and plan as written. Number of minutes spent on the visit:20 Time with Patient: Greater than 30
[2023-02-23] MEDS ORDERED: HYDROcodone/APAP 5-325MG 1 EACH TAB PO STA (06:53)
[2023-02-23] MEDS: LEVOTHYROXINE 137 MCG TAB PO SCH (08:06)
[2023-02-23] MEDS: SPIRONOLACTONE 25 MG TAB PO SCH (08:06)
[2023-02-23] MEDS: METOPROLOL SUCCINATE (ER) 100 MG TAB.ER.24H PO SCH ×2 (08:07→19:47)
[2023-02-23] MEDS: SYMBICORT 160-4.5 MCG INHALER INHALATION SCH ×2 (08:29→20:42)
[2023-02-23] MEDS: IPRATROPIUM-ALBUTEROL 3 ML NEB INHALATION SCH ×4 (08:29→20:42)
[2023-02-23] MEDS ORDERED: FUROSEMIDE 40 MG TAB PO SCH (09:00)
--- NOTE | 2023-02-23 10:26 | P.HPIM ---
History of Present Illness This is a pleasant 65 years old female with multiple medical problems as below Patient presents because of worsening dyspnea over to weeks duration, incidental also she noticed that her heart rate was running low 40s to 50s and her pulse SO she decided to come to emergency room Patient also complaining of from chest pain, central and in the back about 7/10 in severity but now not too bad after she took her [place], She had vomited 3-4 times over the last 2 weeks, last vomit was about 2 days ago, currently no vomiting, no abdominal pain, no diarrhea. No urinary complaint She has a mild headache and dizziness but no weakness numbness. She used to smoke and quit 9 months ago but went back to smoking again about 2 months ago, she states she smokes 1 cigarette a day and she is willing to quit as she already has the nicotine patch. She drinks alcohol occasionally and uses a double marijuana for medical marijuana occasionally. She is on 3 L oxygen She is saturating 97% on 3 L oxygen via nasal cannula, blood pressure 162/94, patient is afebrile. Hemoglobin 8.4, platelet elevated 455, WBC normal 0.6. Rest of CBC and BMP and liver enzymes are unremarkable. INR 1.0 Troponin is negative physical 0.012. ProBNP is elevated to 230. Chest x-ray: Cardiomegaly with mild pulmonary vascular congestion EKG showing A. fib with mild RVR on no significant ST-T changes Patient was given breathing treatment, normal saline, Dilaudid and Solu-Medrol Review of Systems Review of systems CONSTITUTIONAL: No fever, no malaise, no fatigue. HEENT: No recent visual problems or hearing problems. Denied any sore throat. CARDIOVASCULAR: No orthopnea, PND, no palpitations, no syncope. PULMONARY: No shortness of breath, no cough, no hemoptysis. GASTROINTESTINAL: No diarrhea, no nausea, no vomiting, no abdominal pain. Normoactive bowel sounds. NEUROLOGICAL: No headaches, no weakness, no numbness. HEMATOLOGICAL: Denies any bleeding or petechiae. GENITOURINARY: Denies any burning micturition, frequency, or urgency. MUSCULOSKELETAL/RHEUMATOLOGICAL: Denies any joint pain, swelling, or any muscle pain. ENDOCRINE: Denies any polyuria or polydipsia. Past Medical History Past Medical History: Atrial Fibrillation, Heart Failure, COPD, Hypertension, Thyroid Disorder Additional Past Medical History / Comment(s): O2 use 24hrs per day, 3L/NC during the day, 6L at night. Hx left breast cancer 4 yrs ago treated with Chemo/Radiation and partial Mastectomy. NO BLOOD PRESSURES/LAB DRAWS ON LEFT ARM. Hx kidney stones. Hx kidney failure after Hysterectomy, no problems since. History of Any Multi-Drug Resistant Organisms: None Reported Past Surgical History: Cholecystectomy, Hysterectomy Additional Past Surgical History / Comment(s): Left partial mastectomy and lymph nodes removed, D&C's, Radioactive Iodine Treatment for Thyroid. Past Anesthesia/Blood Transfusion Reactions: Postoperative Nausea & Vomiting (PONV) Past Psychological History: Anxiety, Depression Additional Psychological History / Comment(s): Panic attacks, night terrors Smoking Status: Current some day smoker Past Alcohol Use History: Occasional Additional Past Alcohol Use History / Comment(s): Quit smoking 3 weeks ago, smoked for 40 yrs, 1-09/01 ppd. Past Drug Use History: None Reported Additional Drug Use History / Comment(s): Uses Marijuana edibles. Aware no use 24 hrs prior to procedure. - Past Family History Mother Family Medical History: Cancer Father Family Medical History: Cancer Brother(s) Family Medical History: Cancer Son(s) Family Medical History: Deep Vein Thrombosis (DVT), Pulmonary Embolus Medications and Allergies Home Medications Medication Instructions Recorded Confirmed Type Apixaban [Eliquis] 5 mg PO BID 10/01/21 02/22/23 History Atorvastatin [Lipitor] 20 mg PO HS 10/01/21 02/22/23 History Levothyroxine Sodium [Synthroid] 137 mcg PO DAILY 10/01/21 02/22/23 History Omeprazole 20 mg PO DAILY 10/01/21 02/22/23 History Acetaminophen Tab [Tylenol] 650 mg PO Q6HR PRN tab 09/14/22 02/22/23 Rx Diltiazem Cd [Cardizem CD] 120 mg PO DAILY #90 cap 09/14/22 02/22/23 Rx Albuterol Sulfate [Ventolin HFA] 1 - 2 puff INHALATION RT-Q6H PRN 11/01/22 02/22/23 History FLUoxetine HCL [PROzac] 40 mg PO DAILY 11/01/22 02/22/23 History Losartan Potassium [Cozaar] 100 mg PO DAILY 11/01/22 02/22/23 History Metoprolol Succinate (ER) [Toprol 100 mg PO BID 11/01/22 02/22/23 History XL] Potassium Chloride ER [K-Dur 10] 10 meq PO DAILY 11/01/22 02/22/23 History Spironolactone [Aldactone] 25 mg PO DAILY 11/01/22 02/22/23 History Furosemide [Lasix] 40 mg PO BID #60 tab 11/19/22 02/22/23 Rx Budesonide/Formoterol Fumarate 1 puff INHALATION RT-BID 02/22/23 02/22/23 History [Symbicort 160-4.5 Mcg Inhaler] Allergies Allergy/AdvReac Type Severity Reaction Status Date / Time morphine Allergy Anaphylaxis Verified 02/22/23 20:15 Penicillins AdvReac Nausea & Verified 02/22/23 20:15 Vomiting Physical Exam Vitals: Vital Signs Temp Pulse Pulse Resp BP BP Pulse Ox 02/23/23 08:41 92 02/23/23 08:30 98 97 02/23/23 07:38 97.4 F L 98 18 162/94 98 02/23/23 01:34 97.9 F 94 122/69 94 L 02/22/23 23:16 97.8 F 68 17 161/71 96 02/22/23 22:00 98.4 F 82 18 142/87 98 02/22/23 21:00 84 18 153/74 98 02/22/23 20:00 86 16 140/87 100 02/22/23 19:57 85 02/22/23 18:20 98.0 F 110 H 26 H 176/104 96 Intake and Output 02/22/23 02/23/23 02/23/23 22:59 06:59 14:59 Other: # Voids 4 Weight 140.614 kg 151 kg GENERAL: The patient is alert and oriented x3, not in any acute distress. Well developed, well nourished. HEENT: Pupils are round and equally reacting to light. EOMI. No scleral icterus. No conjunctival pallor. Normocephalic, atraumatic. No pharyngeal erythema. No th yromegaly. CARDIOVASCULAR: S1 and S2 present. No murmurs, rubs, or gallops. -PULMONARY: Chest is clear to auscultation, no wheezing or crackles. Decreased air entry bilaterally ABDOMEN: Soft, nontender, nondistended, normoactive bowel sounds. No palpable organomegaly. MUSCULOSKELETAL: No joint swelling or deformity. -EXTREMITIES: No cyanosis, clubbing, 1+ bilateral pitting leg edema. NEUROLOGICAL: Gross neurological examination did not reveal any focal deficits. SKIN: No rashes. no petechiae. Results CBC & Chem 7: 02/22/23 19:31 02/22/23 19:31 Labs: Abnormal Lab Results - Last 24 Hours (Table) 02/22/23 02/22/23 Range/Units 19:31 19:31 RBC 3.72 L (3.80-5.40) m/uL Hgb 8.4 L (11.4-16.0) gm/dL Hct 30.2 L (34.0-46.0) % MCH 22.6 L (25.0-35.0) pg MCHC 27.8 L (31.0-37.0) g/dL RDW 16.6 H (11.5-15.5) % Plt Count 455 H (150-450) k/uL BUN 19 H (7-17) mg/dL Glucose 111 H (74-99) mg/dL Thrombosis Risk Factor Assmnt - Choose All That Apply Any of the Below Risk Factors Present?: Yes Each Factor Represents 1 point: Abnormal pulmonary function (COPD) Other Risk Factors: Yes Each Risk Factor Represents 2 Points: Age 61-74 years Other congenital or acquired thrombophilia - If yes, enter type in comment: No Thrombosis Risk Factor Assessment Total Risk Factor Score: 3 Thrombosis Risk Factor Assessment Level: Moderate Risk Assessment and Plan Assessment: Acute COPD exacerbation Acute on chronic diastolic CHF Acute on chronic hypoxic respiratory failure Nicotine dependence Hyperlipidemia Hypertension Hypothyroidism Paroxysmal atrial fibrillation on a blood thinner and draped controlled Chronic hypoxic respiratory failure History of left breast cancer 4 years ago status post chemoradiotherapy and partial mastectomy History of anxiety, depression and panic attack, not an active issue Obesity, with BMI of 53.7 Plan: Continue with steroids , IV Solu-Medrol CONTINUE WITH IV LASIX AND MONITOR INPUT AND OUTPUT AND ELECTROLYTES CARDIOLOGY AND PULMONARY CONSULT CHECK ECHOCARDIOGRAM Labs and medication were reviewed.. Continue same treatment. Continue with symptomatic treatment. Resume home medication. Monitor labs and vitals. DVT and GI prophylaxis. Further recommendations as per clinical course of the patient DVT prophylaxis: Eliquis GI prophylaxis: Pepcid PT/OT: Pending Prognosis is guarded
--- NOTE | 2023-02-23 10:43 | P.CRDCN ---
History of Present Illness History of present illness: HISTORY OF PRESENT ILLNESS: This is a 62-year-old female with a past medical history significant for congestive heart failure, COPD, persistent atrial fibrillation, nonobstructive coronary artery disease, and tachybradycardia syndrome. Patient follows in the office with Dr. Sharp. We have been asked to see the patient in consultation for congestive heart failure. Patient examined at the bedside. Patient presented to the hospital with a chief complaint of shortness of breath. The patient states she has been feeling short of breath for the last 2 weeks. She states it has gotten worse in severity over the past couple days. She also reports over the last 2-3 days that she began noticing lower extremity edema which she did not previously have. She states the last few days she has noticed her heart rate increasing on her home monitor. She reports some mild chest pain with her shortness of breath. She also reports having some episodes of nausea and his anus. At the time of examination, she denies any chest pain or pressure. She does report shortness of breath this morning. The patient was started on IV steroids and IV Lasix. The patient states that she is not always compliant with her Lasix dosing. She states if she has somewhere to go she will only take her Lasix once a day instead of twice a day. She also reports she is not compliant with a low-salt diet at home. Patient is a current cigarette smoker and states that she smokes 1 cigarette a day. * EKG reveals atrial fibrillation with a heart rate of 106 * Chest xray cardiomegaly and mild pulmonary vascular congestion. * Laboratory data: W BC 8.6. Hemoglobin 8.4. Platelet count 455. Sodium 141. Potassium 4.1. BUN 19. Creatinine 0.91. Troponin negative 1. ProBNP 2230. * Current home cardiac medications include Eliquis 5mg BID, Cardizem CD 120 mg daily, Lasix 40 mg twice a day, losartan 100 mg daily, metoprolol succinate 100 mg twice a day, Aldactone 25 mg daily, atorvastatin 20 mg at night * Most recent echocardiogram obtained in August 2022 revealing ejection frac tion 50-55%, mild right ventricular dilation, small pericardial effusion * Cardiac catheterization history: August 2022 revealing 50% stenosis of left circumflex REVIEW OF SYSTEMS: At the time of my exam: CONSTITUTIONAL: Denies fever or chills. HEENT: Denies blurred vision, vision changes, or eye pain. Denies hemoptysis CARDIOVASCULAR: Denies chest pain. Denies orthopnea. Denies PND. Denies palpitations RESPIRATORY: Denies shortness of breath. GASTROINTESTINAL: Denies abdominal pain. Denies nausea or vomiting. HEMATOLOGIC: Denies bleeding disorders. GENITOURINARY: Denies any blood in urine. SKIN: Denies pruitis. Denies rash. PHYSICAL EXAM: VITAL SIGNS: Reviewed. GENERAL: Well-developed in no acute distress. HEENT: Head is normocephalic. Pupils are equal, round. Sclerae anicteric. Mucous membranes of the mouth are moist. Neck supple. No JVD or thyromegaly LUNGS: Respirations even and unlabored. Lungs diminished with bibasilar crackles HEART: Irregular rate and rhythm. S1 and S2 heard. ABDOMEN: Soft. Nondistended. Nontender. EXTREMITIES: Normal range of motion. No clubbing or cyanosis. Peripheral pulses intact. 1+ bilateral lower extremity edema NEUROLOGIC: Awake and alert. Oriented x 3. ASSESSMENT: Shortness of breath Acute exacerbation of COPD Acute on chronic hypoxic respiratory failure, on home oxygen Acute on chronic heart failure with preserved ejection fraction Persistent atrial fibrillation Nonobstructive coronary artery disease Tachybradycardia syndrome, being evaluated for pacemaker implantation on an outpatient basis Morbid obesity Nicotine dependence Medication noncompliance Noncompliance with low sodium diet at home PLAN: Obtain 2-D echo to assess cardiac structure and function Continue IV Lasix Daily weights, accurate I&O, and monitoring of kidney function Smoking cessation recommended Importance of diet compliance reinforced with patient Further recommendations pending patient's course Nurse practitioner note has been reviewed by physician. Signing provider agrees with the documented findings, assessment, and plan of care. Past Medical History Past Medical History: Atrial Fibrillation, Heart Failure, COPD, Hypertension, Thyroid Disorder Additional Past Medical History / Comment(s): O2 use 24hrs per day, 3L/NC during the day, 6L at night. Hx left breast cancer 4 yrs ago treated with Chemo/Radiation and partial Mastectomy. NO BLOOD PRESSURES/LAB DRAWS ON LEFT ARM. Hx kidney stones. Hx kidney failure after Hysterectomy, no problems s ju. History of Any Multi-Drug Resistant Organisms: None Reported Past Surgical History: Cholecystectomy, Hysterectomy Additional Past Surgical History / Comment(s): Left partial mastectomy and lymph nodes removed, D&C's, Radioactive Iodine Treatment for Thyroid. Past Anesthesia/Blood Transfusion Reactions: Postoperative Nausea & Vomiting (PONV) Past Psychological History: Anxiety, Depression Additional Psychological History / Comment(s): Panic attacks, night terrors Smoking Status: Current some day smoker Past Alcohol Use History: Occasional Additional Past Alcohol Use History / Comment(s): Quit smoking 3 weeks ago, smoked for 40 yrs, 1-09/01 ppd. Past Drug Use History: None Reported Additional Drug Use History / Comment(s): Uses Marijuana edibles. Aware no use 24 hrs prior to procedure. - Past Family History Mother Family Medical History: Cancer Father Family Medical History: Cancer Brother(s) Family Medical History: Cancer Son(s) Family Medical History: Deep Vein Thrombosis (DVT), Pulmonary Embolus Medications and Allergies Home Medications Medication Instructions Recorded Confirmed Type Apixaban [Eliquis] 5 mg PO BID 10/01/21 02/22/23 History Atorvastatin [Lipitor] 20 mg PO HS 10/01/21 02/22/23 History Levothyroxine Sodium [Synthroid] 137 mcg PO DAILY 10/01/21 02/22/23 History Omeprazole 20 mg PO DAILY 10/01/21 02/22/23 History Acetaminophen Tab [Tylenol] 650 mg PO Q6HR PRN tab 09/14/22 02/22/23 Rx Diltiazem Cd [Cardizem CD] 120 mg PO DAILY #90 cap 09/14/22 02/22/23 Rx Albuterol Sulfate [Ventolin HFA] 1 - 2 puff INHALATION RT-Q6H PRN 11/01/22 02/22/23 History FLUoxetine HCL [PROzac] 40 mg PO DAILY 11/01/22 02/22/23 History Losartan Potassium [Cozaar] 100 mg PO DAILY 11/01/22 02/22/23 History Metoprolol Succinate (ER) [Toprol 100 mg PO BID 11/01/22 02/22/23 History XL] Potassium Chloride ER [K-Dur 10] 10 meq PO DAILY 11/01/22 02/22/23 History Spironolactone [Aldactone] 25 mg PO DAILY 11/01/22 02/22/23 History Furosemide [Lasix] 40 mg PO BID #60 tab 11/19/22 02/22/23 Rx Budesonide/Formoterol Fumarate 1 puff INHALATION RT-BID 02/22/23 02/22/23 History [Symbicort 160-4.5 Mcg Inhaler] Allergies Allergy/AdvReac Type Severity Reaction Status Date / Time morphine Allergy Anaphylaxis Verified 02/22/23 20:15 Penicillins AdvReac Nausea & Verified 02/22/23 20:15 Vomiting Physical Exam Vitals: Vital Signs Temp Pulse Pulse Resp BP BP Pulse Ox 02/23/23 07:38 97.4 F L 98 18 162/94 98 02/23/23 01:34 97.9 F 94 122/69 94 L 02/22/23 23:16 97.8 F 68 17 161/71 96 02/22/23 22:00 98.4 F 82 18 142/87 98 02/22/23 21:00 84 18 153/74 98 02/22/23 20:00 86 16 140/87 100 02/22/23 19:57 85 02/22/23 18:20 98.0 F 110 H 26 H 176/104 96 Intake and Output 02/22/23 02/23/23 02/23/23 22:59 06:59 14:59 Other: # Voids 4 Weight 140.614 kg 151 kg Results 02/22/23 19:31 02/22/23 19:31 Cardiac Enzymes 02/22/23 02/22/23 Range/Units 19:31 19:31 AST 20 (14-36) U/L Troponin I <0.012 (0.000-0.034) ng/mL Coagulation 02/22/23 Range/Units 19:31 PT 11.0 (9.0-12.0) sec APTT 25.7 (22.0-30.0) sec CBC 02/22/23 Range/Units 19:31 WBC 8.6 (3.8-10.6) k/uL RBC 3.72 L (3.80-5.40) m/uL Hgb 8.4 L (11.4-16.0) gm/dL Hct 30.2 L (34.0-46.0) % Plt Count 455 H (150-450) k/uL Comprehensive Metabolic Panel 02/22/23 Range/Units 19:31 Sodium 141 (137-145) mmol/L Potassium 4.1 (3.5-5.1) mmol/L Chloride 105 (98-107) mmol/L Carbon Dioxide 27 (22-30) mmol/L BUN 19 H (7-17) mg/dL Creatinine 0.91 (0.52-1.04) mg/dL Glucose 111 H (74-99) mg/dL Calcium 8.7 (8.4-10.2) mg/dL AST 20 (14-36) U/L ALT 17 (4-34) U/L Alkaline Phosphatase 113 (38-126) U/L Total Protein 6.7 (6.3-8.2) g/dL Albumin 4.1 (3.5-5.0) g/dL Current Medications Generic Name Dose Route Start Last Admin Trade Name Freq PRN Reason Stop Dose Admin Acetaminophen 650 mg 02/23/23 01:19 02/23/23 01:28 Acetaminophen Tab 325 Mg Tab PO 650 mg Q4HR PRN Administration Fever and/ or Pain Albuterol/Ipratropium 3 ml 02/23/23 08:00 02/23/23 08:29 Ipratropium-Albuterol 3 Ml Neb INHALATION 3 ml RT-QID OUMOU Administration Albuterol/Ipratropium 3 ml 02/22/23 22:06 Ipratropium-Albuterol 3 Ml Neb INHALATION RT-Q2H PRN Shortness Of Breath Or Wheezing Apixaban 5 mg 02/23/23 00:30 02/23/23 08:07 Apixaban 5 Mg Tab PO 5 mg BID OUMOU Administration Protocol Atorvastatin Calcium 20 mg 02/23/23 00:30 02/23/23 00:53 Atorvastatin 20 Mg Tab PO 20 mg HS OUMOU Administration Budesonide/Formoterol Fumarate 2 puff 02/23/23 08:00 02/23/23 08:29 Symbicort 160-4.5 Mcg Inhaler INHALATION 2 puff RT-BID OUMOU Administration Furosemide 40 mg 02/23/23 01:30 02/23/23 01:28 Furosemide 10 Mg/Ml 4 Ml Vial IV 40 mg Q12HR OUMOU Administration Levothyroxine Sodium 137 mcg 02/23/23 07:00 02/23/23 08:06 Levothyroxine 137 Mcg Tab PO 137 mcg DAILY@0700 OUMOU Administration Melatonin 5 mg 02/23/23 21:00 Melatonin 5 Mg Tablet PO HS [facility] Methylprednisolone Sodium Succinate 60 mg 02/23/23 00:00 02/23/23 07:04 Methylprednisolone Sod Succi 125 Mg/2 Ml Vial IV 60 mg Q6HR OUMOU Administration Metoprolol Succinate 100 mg 02/23/23 09:00 02/23/23 08:07 Metoprolol Succinate (Er) 100 Mg Tab.Er.24h PO 100 mg BID OUMOU Administration Naloxone HCl 0.2 mg 02/22/23 22:06 Naloxone 0.4 Mg/Ml 1 Ml Vial IVP Q2M PRN Opioid Reversal Spironolactone 25 mg 02/23/23 09:00 02/23/23 08:06 Spironolactone 25 Mg Tab PO 25 mg DAILY OUMOU Administration Intake and Output 02/22/23 02/23/23 02/23/23 22:59 06:59 14:59 Other: # Voids 4 Weight 140.614 kg 151 kg 02/22/23 19:31 02/22/23 19:31
[2023-02-23] MEDS: ALPRAZolam 0.25 MG TAB PO PRN ×2 (11:34→19:48)
--- NOTE | 2023-02-23 12:59 | CA ---
Transthoracic Echo Report Name: Ami Burns Age: 62 Gender: F : 1960 Exam Date: 02/23/2023 09:47 Exam Location: [facility] Ht (in): 66 Wt (lb): 332 Ordering Physician: Hodan Bedoya Attending/Referring Phys: [id number], [employer] Marsha Lopez, EDDA Procedure CPT: Indications: LV function Cardiac Hx: Technical Quality: Technically difficult study Contrast 1: Lumason Total Dose (mL): 3 Contrast 2: Total Dose (mL): MEASUREMENTS (Male / Female) Normal Values 2D ECHO LV Diastolic Diameter PLAX 5.2 cm 4.2 - 5.9 / 3.9 - 5.3 cm LV Systolic Diameter PLAX 3.7 cm IVS Diastolic Thickness 1.6 cm 0.6 - 1.0 / 0.6 - 0.9 cm LVPW Diastolic Thickness 1.4 cm 0.6 - 1.0 / 0.6 - 0.9 cm LV Relative Wall Thickness 0.6 RV Internal Dim ED PLAX 2.3 cm LA Systolic Diameter LX 3.8 cm 3.0 - 4.0 / 2.7 - 3.8 cm M-MODE Aortic Root Diameter MM 3.7 cm MV E Point Septal Separation 0.6 cm AV Cusp Separation MM 2.4 cm DOPPLER AV Peak Velocity 139.9 cm/s AV Peak Gradient 7.8 mmHg MV Area PHT 5.4 cm??? MV Deceleration Time 150.4 ms TR Peak Velocity 274.2 cm/s TR Peak Gradient 30.1 mmHg Right Ventricular Systolic Press 33.5 mmHg FINDINGS Left Ventricle Left ventricular ejection fraction is estimated at 45-50 %. Left ventricular cavity size normal. Moderate concentric left ventricular hypertrophy. Right Ventricle Normal right ventricular size and function. Right ventricular systolic pressure within normal limits. Mildly increased right ventricular wall thickness. Right Atrium Normal right atrial size. Left Atrium Normal left atrial size. Mitral Valve Mitral valve thickened. No mitral stenosis, regurgitation or prolapse. Aortic Valve Trileaflet aortic valve. No aortic valve stenosis or regurgitation. Tricuspid Valve Structurally normal tricuspid valve. Mild tricuspid regurgitation. Pulmonic Valve Pulmonic valve not well visualized. Pericardium Normal pericardium. Small pericardial effusion. Pericardial fat pad Aorta Normal size aortic root and proximal ascending aorta. CONCLUSIONS Mildly impaired LV function was near between 45-50%. Moderate concentric LVH Previewed by: Dr. Jean Carlos Manjarrez MD (Electronically Signed) Final Date: 23 February 2023 12:59
[2023-02-23 15:50] LABS: Basophils # (A) 0.02 X 10*3/uL (0.00-0.10); Basophils % (A) 0.2 %; Eosinophils # (A) 0 X 10*3/uL (0.04-0.35); Eosinophils % (A) 0 %; HCT 32.4 % (37.2-46.3); HGB 8.6 g/dL (12.0-15.0); Immature Grans, Automated 2.1 %; Lymphocytes # (A) 0.55 X 10*3/uL (0.90-5.00); Lymphocytes % (A) 6.3 %; MCH 22.2 pg (27.0-32.0); MCHC 26.5 g/dL (32.0-37.0); MCV 83.7 fL (80.0-97.0); Mean Platelet Volume 9.4 fL (9.5-12.2); Monocytes # (A) 0.16 X 10*3/uL (0.20-1.00); Monocytes % (A) 1.8 %; NRBC Per 100 WBC 0 /100 WBCS (0.0-0.0); Neutrophils # (A) 7.84 X 10*3/uL (1.80-7.70); Neutrophils % (A) 89.6 %; Platelet Count 532 X 10*3/uL (140-440); RBC 3.87 X 10*6/uL (4.10-5.20); RDW 16.9 % (11.5-14.5); WBC 8.75 X 10*3/uL (4.50-10.00)
[2023-02-23 16:45] LABS: African American GFR (CKD) 59.1 (60.0-200.0); Anion Gap 17.9 mmol/L (10.00-18.00); BUN/Creat Ratio 17.13 Ratio (12.00-20.00); Blood Urea Nitrogen 19.7 mg/dL (9.0-27.0); Calcium 9.2 mg/dL (8.7-10.3); Carbon Dioxide 26.4 mmol/L (20.0-27.5); Potassium 3.9 mmol/L (3.5-5.5)
[2023-02-23] MEDS ORDERED: MELATONIN 5 MG TABLET PO SCH (21:00)
[2023-02-24 06:05] LABS: Glucose,Whole Blood 216 mg/dL (70-110)
[2023-02-24 06:21] LABS: African American GFR (CKD) 69 (>60 ml/min/1.73 sqM); Anion Gap 10 mmol/L; Blood Urea Nitrogen 30 mg/dL (7-17); Calcium 8.6 mg/dL (8.4-10.2); Carbon Dioxide 34 mmol/L (22-30); Chloride 94 mmol/L (98-107); Glucose 182 mg/dL (74-99); Non-African American GFR(CKD) 60 (>60 ml/min/1.73 sqM); Potassium 4.1 mmol/L (3.5-5.1); Sodium 138 mmol/L (137-145)
[2023-02-24] MEDS: LEVOTHYROXINE 137 MCG TAB PO SCH (06:36)
[2023-02-24] MEDS: ALPRAZolam 0.25 MG TAB PO PRN (06:38)
[2023-02-24] MEDS: methylPREDNISolone SOD SUCCI 125 MG/2 ML VIAL IV SCH ×2 (06:39→12:51)
[2023-02-24 07:34] VITALS: BP 146/92; TEMP 97.5
--- NOTE | 2023-02-24 08:14 | XR ---
EXAMINATION TYPE: XR chest 1V portable DATE OF EXAM: 02/24/2023 HISTORY: Shortness of breath. COMPARISON: 02/22/2023 TECHNIQUE: Single view of the chest is submitted. FINDINGS: Demonstrated are scattered senescent parenchymal change. There is no evidence for focal infiltrate. The heart is stable. Hilar and mediastinal structures are within normal limits. Degenerative changes are seen of the dorsal spine. IMPRESSION: 1. Chronic changes without evidence for acute pulmonary disease.
[2023-02-24] MEDS: IPRATROPIUM-ALBUTEROL 3 ML NEB INHALATION SCH ×2 (08:20→11:47)
[2023-02-24] MEDS: SYMBICORT 160-4.5 MCG INHALER INHALATION SCH (08:20)
[2023-02-24] MEDS: APIXABAN 5 MG TAB PO SCH (09:04)
[2023-02-24] MEDS: SPIRONOLACTONE 25 MG TAB PO SCH (09:05)
[2023-02-24] MEDS: FUROSEMIDE 10 MG/ML 4 ML VIAL IV SCH (09:05)
[2023-02-24] MEDS: METOPROLOL SUCCINATE (ER) 100 MG TAB.ER.24H PO SCH (09:05)
--- NOTE | 2023-02-24 10:50 | P.PN ---
Subjective Progress Note Date: 02/24/23 HISTORY OF PRESENT ILLNESS: This is a 62-year-old female with a past medical history significant for congestive heart failure, COPD, persistent atrial fibrillation, nonobstructive coronary artery disease, and tachybradycardia syndrome. Patient follows in the office with Dr. Sharp. We have been asked to see the patient in consultation for congestive heart failure. Patient examined at the bedside. Patient presented to the hospital with a chief complaint of shortness of breath. The patient states she has been feeling short of breath for the last 2 weeks. She states it has gotten worse in severity over the past couple days. She also reports over the last 2-3 days that she began noticing lower extremity edema which she did not previously have. She states the last few days she has noticed her heart rate increasing on her home monitor. She reports some mild chest pain with her shortness of breath. She also reports having some episodes of nausea and his anus. At the time of examination, she denies any chest pain or pressure. She does report shortness of breath this morning. The patient was started on IV steroids and IV Lasix. The patient states that she is not always compliant with her Lasix dosing. She states if she has somewhere to go she will only take her Lasix once a day instead of twice a day. She also reports she is not compliant with a low-salt diet at home. Patient is a current cigarette smoker and states that she smokes 1 cigarette a day. * EKG reveals atrial fibrillation with a heart rate of 106 * Chest xray cardiomegaly and mild pulmonary vascular congestion. * Laboratory data: W BC 8.6. Hemoglobin 8.4. Platelet count 455. Sodium 141. Potassium 4.1. BUN 19. Creatinine 0.91. Troponin negative 1. ProBNP 2230. * Current home cardiac medications include Eliquis 5mg BID, Cardizem CD 120 mg daily, Lasix 40 mg twice a day, losartan 100 mg daily, metoprolol succinate 100 mg twice a day, Aldactone 25 mg daily, atorvastatin 20 mg at night * Most recent echocardiogram obtained in August 2022 revealing ejection fraction 50-55%, mild right ventricular dilation, small pericardial effusion * Cardiac catheterization history: August 2022 revealing 50% stenosis of left circumflex 02/24/2023 Patient examined this morning. Patient is sitting up in the chair. She denies any chest pain or pressure. She denies any shortness of breath. She states that she feels like she is back to her baseline and is hoping to be discharged home today. Echocardiogram completed revealing ejection fraction 45-50%, mild TR, small pericardial effusion. PHYSICAL EXAM: VITAL SIGNS: Reviewed. GENERAL: Well-developed in no acute distress. HEENT: Head is normocephalic. Pupils are equal, round. Sclerae anicteric. Mucous membranes of the mouth are moist. Neck supple. No JVD or thyromegaly LUNGS: Respirations even and unlabored. Lungs diminished bilaterally HEART: Irregular rate and rhythm. S1 and S2 heard. ABDOMEN: Soft. Nondistended. Nontender. EXTREMITIES: Normal range of motion. No clubbing or cyanosis. Peripheral pulses intact. No lower extremity edema NEUROLOGIC: Awake and alert. Oriented x 3. ASSESSMENT: Shortness of breath Acute exacerbation of COPD Acute on chronic hypoxic respiratory failure, on home oxygen Acute on chronic heart failure with preserved ejection fraction Persistent atrial fibrillation Nonobstructive coronary artery disease Tachybradycardia syndrome, being evaluated for pacemaker implantation on an outpatient basis Morbid obesity Nicotine dependence Medication noncompliance Noncompliance with low sodium diet at home PLAN: Discontinue IV Lasix Begin oral Lasix 40 mg twice a day Smoking cessation recommended Importance of diet compliance reinforced with patient Patient is stable for discharge home today from a cardiac standpoint Further recommendations pending patient's course Nurse practitioner note has been reviewed by physician. Signing provider agrees with the documented findings, assessment, and plan of care. Objective - Vital Signs Vital signs: Vital Signs Temp 97.5 F L 02/24/23 07:33 Pulse 98 02/24/23 08:34 Resp 20 02/24/23 07:33 BP 146/92 02/24/23 07:33 Pulse Ox 96 02/24/23 09:30 FiO2 Intake & Output 02/23/23 02/24/23 02/24/23 18:59 06:59 18:59 Weight 150.1 kg - Labs CBC & Chem 7: 02/23/23 11:25 02/24/23 04:06 Labs: Abnormal Lab Results - Last 24 Hours (Table) 02/23/23 02/23/23 02/24/23 Range/Units 11:25 11:25 04:06 RBC 3.87 L (4.10-5.20) X 10*6/uL Hgb 8.6 L (12.0-15.0) g/dL Hct 32.4 L (37.2-46.3) % MCH 22.2 L (27.0-32.0) pg MCHC 26.5 L (32.0-37.0) g/dL RDW 16.9 H (11.5-14.5) % Plt Count 532 H (140-440) X 10*3/uL MPV 9.4 L (9.5-12.2) fL Immature Gran # 0.18 H (0.00-0.04) X 10*3/uL Neutrophils # 7.84 H (1.80-7.70) X 10*3/uL Lymphocytes # 0.55 L (0.90-5.00) X 10*3/uL Monocytes # 0.16 L (0.20-1.00) X 10*3/uL Eosinophils # 0 L (0.04-0.35) X 10*3/uL Chloride 94 L (98-107) mmol/L Carbon Dioxide 34 H (22-30) mmol/L BUN 30 H (7-17) mg/dL Est GFR (CKD-EPI)AfAm 59.1 L (60.0-200.0) Est GFR (CKD-EPI)NonAf 51.0 L (60.0-200.0) Glucose 265 H 182 H (70-110) mg/dL POC Glucose (mg/dL) (70-110) mg/dL TSH 0.161 L (0.350-5.500) uIU/mL 02/24/23 Range/Units 06:03 RBC (4.10-5.20) X 10*6/uL Hgb (12.0-15.0) g/dL Hct (37.2-46.3) % MCH (27.0-32.0) pg MCHC (32.0-37.0) g/dL RDW (11.5-14.5) % Plt Count (140-440) X 10*3/uL MPV (9.5-12.2) fL Immature Gran # (0.00-0.04) X 10*3/uL Neutrophils # (1.80-7.70) X 10*3/uL Lymphocytes # (0.90-5.00) X 10*3/uL Monocytes # (0.20-1.00) X 10*3/uL Eosinophils # (0.04-0.35) X 10*3/uL Chloride (98-107) mmol/L Carbon Dioxide (22-30) mmol/L BUN (7-17) mg/dL Est GFR (CKD-EPI)AfAm (60.0-200.0) Est GFR (CKD-EPI)NonAf (60.0-200.0) Glucose (70-110) mg/dL POC Glucose (mg/dL) 216 H (70-110) mg/dL TSH (0.350-5.500) uIU/mL
[2023-02-24 11:46] LABS: Glucose,Whole Blood 184 mg/dL (70-110)
[2023-02-24 12:01] VITALS: PULSE 92
--- NOTE | 2023-02-24 13:43 | P.PN ---
Subjective Progress Note Date: 02/24/23 I am seeing this patient in new consultation today 02/23/2023 for suspected acute exacerbation of CHF. Patient is a 63-year-old white female with past medical history of congestive heart failure, atrial fibrillation, sick sinus syndrome, COPD, chronic oxygen dependence, obstructive sleep apnea with home CPAP, coronary artery disease, hypertension, history of left breast cancer s/p partial mastectomy, hypothyroidism, and Ex smoker. Patient normally follows with Dr. Cecilia Mario for management of her COPD, and takes a combination of Symbicort and albuterol. Patient came to the emergency room yesterday evening with chief complaints of shortness of breath, non-radiating chest pressure, and increased lower extremity swelling. Denies any recent sick contacts. Denies fever, chills, change in her chronic cough, hemoptysis. Patient is currently sitting up in bed, on auto CPAP with a minimum pressure 5 and maximum pressure of 12 and supplemental 6 L/m of oxygen, in no acute distress. Patient's chest x-ray on arrival showed some cardiomegaly and mild pulmonary vascular congestion. NT proBNP was elevated at 2230. Patient normally takes Lasix 40 mg twice a day at home. Patient was found to be in atrial fibrillation with rate of 106 BPM on arrival. She is anticoagulated on Eliquis. Troponins negative. ECG showed no acute ischemic changes. Vital signs are stable at this time. The patient is seen today 02/24/2023 in follow-up on the regular medical floor. She is currently sitting up in a chair at the bedside. Awake and alert in no acute distress. 18 in good O2 saturations up to 99% on 3 L/m per nasal cannula. Echocardiogram revealed mildly impaired left ventricular systolic function with ejection fraction 45-50%. No significant valvular abnormalities. Follow-up chest x-ray reveals chronic changes without evidence of acute pulmonary process. Sodium 138. Potassium 4.1. Bicarb 34. BUN 30. Creatinine 1.01. Glucose 182. She is continued on Symbicort, DuoNeb inhalations, prednisone taper. Remains on oral diuretics. Objective - Vital Signs Vital signs: Vital Signs Temp 97.5 F L 02/24/23 07:33 Pulse 92 02/24/23 12:00 Resp 20 02/24/23 07:33 BP 146/92 02/24/23 07:33 Pulse Ox 96 02/24/23 09:30 FiO2 Intake & Output 02/23/23 02/24/23 02/24/23 18:59 06:59 18:59 Weight 150.1 kg - Exam GENERAL EXAM: Alert, pleasant 62-year-old female, on 3 L nasal cannula, comfortable in no apparent distress. HEAD: Normocephalic. EYES: Normal reaction of pupils, equal size. NOSE: Clear with pink turbinates. THROAT: No erythema or exudates. NECK: No masses, no JVD. CHEST: No chest wall deformity. LUNGS: Equal air entry with no crackles, wheeze, rhonchi or dullness. CVS: S1 and S2 normal with no audible murmur, regular rhythm. ABDOMEN: No hepatosplenomegaly, normal bowel sounds, no guarding or rigidity. SPINE: No scoliosis or deformity SKIN: No rashes CENTRAL NERVOUS SYSTEM: No focal deficits, tone is normal in all 4 extremities. EXTREMITIES: There is no peripheral edema. No clubbing, no cyanosis. Peripheral pulses are intact. - Labs CBC & Chem 7: 02/23/23 11:25 02/24/23 04:06 Labs: Abnormal Lab Results - Last 24 Hours (Table) 02/23/23 02/23/23 02/24/23 Range/Units 11:25 11:25 04:06 RBC 3.87 L (4.10-5.20) X 10*6/uL Hgb 8.6 L (12.0-15.0) g/dL Hct 32.4 L (37.2-46.3) % MCH 22.2 L (27.0-32.0) pg MCHC 26.5 L (32.0-37.0) g/dL RDW 16.9 H (11.5-14.5) % Plt Count 532 H (140-440) X 10*3/uL MPV 9.4 L (9.5-12.2) fL Immature Gran # 0.18 H (0.00-0.04) X 10*3/uL Neutrophils # 7.84 H (1.80-7.70) X 10*3/uL Lymphocytes # 0.55 L (0.90-5.00) X 10*3/uL Monocytes # 0.16 L (0.20-1.00) X 10*3/uL Eosinophils # 0 L (0.04-0.35) X 10*3/uL Chloride 94 L (98-107) mmol/L Carbon Dioxide 34 H (22-30) mmol/L BUN 30 H (7-17) mg/dL Est GFR (CKD-EPI)AfAm 59.1 L (60.0-200.0) Est GFR (CKD-EPI)NonAf 51.0 L (60.0-200.0) Glucose 265 H 182 H (70-110) mg/dL POC Glucose (mg/dL) (70-110) mg/dL TSH 0.161 L (0.350-5.500) uIU/mL 02/24/23 02/24/23 Range/Units 06:03 11:45 RBC (4.10-5.20) X 10*6/uL Hgb (12.0-15.0) g/dL Hct (37.2-46.3) % MCH (27.0-32.0) pg MCHC (32.0-37.0) g/dL RDW (11.5-14.5) % Plt Count (140-440) X 10*3/uL MPV (9.5-12.2) fL Immature Gran # (0.00-0.04) X 10*3/uL Neutrophils # (1.80-7.70) X 10*3/uL Lymphocytes # (0.90-5.00) X 10*3/uL Monocytes # (0.20-1.00) X 10*3/uL Eosinophils # (0.04-0.35) X 10*3/uL Chloride (98-107) mmol/L Carbon Dioxide (22-30) mmol/L BUN (7-17) mg/dL Est GFR (CKD-EPI)AfAm (60.0-200.0) Est GFR (CKD-EPI)NonAf (60.0-200.0) Glucose (70-110) mg/dL POC Glucose (mg/dL) 216 H 184 H (70-110) mg/dL TSH (0.350-5.500) uIU/mL Assessment and Plan Assessment: Acute on chronic hypoxic respiratory failure secondary to acute exacerbation of diastolic congestive heart failure and COPD exacerbation. Normally wears 3 L nasal cannula at home awake and 6 L/m while sleep. Echocardiogram revealed mildly impaired left ventricular systolic function with ejection fraction of 45- 50%. No significant valvular heart disease. Obstructive sleep apnea with home CPAP. She cannot recall her settings, and is on auto CPAP with a minimum pressure of 5 and maximum pressure of 12 with an additional 6 L/m supplemental oxygen Paroxysmal atrial fibrillation, rate is better controlled. Currently on Eliquis for anticoagulation Chest pain, acute ischemic event ruled out Hypertension History of left sided breast cancer post partial mastectomy Hypothyroidism Ex-smoker Plan: The patient was seen and evaluated Echocardiogram, labs and medications reviewed Cleared for discharge from the pulmonary standpoint Continue a prednisone taper Continue her home pulmonary medications Continue her home pulmonary oxygen and CPAP Follow-up with her supervisor compressed yeast in 1 week I have personally seen and examined the patient, performed the documentation and the assessment and plan as written. Number of minutes spent on the visit: 10.
[2023-02-24 14:58] VITALS: RESP 18
[2023-02-24] MEDS ORDERED: FUROSEMIDE 40 MG TAB PO SCH (16:00)
--- NOTE | 2023-02-24 23:38 | P.DS ---
Providers Date of admission: 02/22/23 22:07 Attending physician: Daryl Garcia Consults: 02/22/23 22:06 Consult Physician Routine Consulting Provider: Derek Palmer Consult Reason/Comments: dyspnea Do you want consulting provider notified?: Yes Consult Physician Routine Consulting Provider: Jean Carlos Manjarrez Consult Reason/Comments: chf Do you want consulting provider notified?: Yes Primary care physician: Tarsha Page [facility] Course: Diagnoses: Acute COPD exacerbation Acute on chronic diastolic CHF Acute on chronic hypoxic respiratory failure Nicotine dependence Hyperlipidemia Hypertension Hypothyroidism Paroxysmal atrial fibrillation on a blood thinner and draped controlled Chronic hypoxic respiratory failure History of left breast cancer 4 years ago status post chemoradiotherapy and par tial mastectomy History of anxiety, depression and panic attack, not an active issue Obesity, with BMI of 53.7 Hospital course: This is a pleasant 65 years old female with multiple medical problems as below Patient presents because of worsening dyspnea over to weeks duration, incidental also she noticed that her heart rate was running low 40s to 50s and her pulse SO she decided to come to emergency room Patient also complaining of from chest pain, as well as dyspnea. Patient tolerated by employee representative and information developer found to have acute CVA COPD exacerbation and CHF with ejection fraction of 45-50%. She had acute on chronic hypoxia, oxygen is back to baseline of 3 L/m. S1, and upon discharge. Also patient with paroxysmal atrial fibrillation on liquids, she confirmed to me she has liquids at home and she does not get prescription. Patient today is back to baseline, she denies dyspnea or chest pain. No other new complaints. Patient wants to go home today. Patient was discharged on tapering steroids and Lasix Patient was cleared for discharge by both cardiology and pulmonary team. Problems and management plan were discussed with the patient and he verbalized understanding and acceptance Patient was found stable and can be discharged home in guarded prognosis however he needs follow-up as an outpatient. Patient was instructed to follow up with PCP Dr. tarsha page within one week and patient agrees patient was instructed to follow up with her housekeeping director Dr. Mario intent to 2 weeks and she agrees with the appointments made for him on 03/01. Patient was instructed to follow up with her employee representative Dr. Drew in one week to 2 weeks and she agrees: Make appointments Physical exam Gen: patient is a AAOx3, no distress CVS: S1-S2, RRR, no murmur Lungs: B/L CTA, no wheezing Abdomen: soft, no distention, no tenderness, positive bowel sounds Extremity: no leg edema or induration Time spent more than 35 minutes Patient Condition at Discharge: Fair Plan - Discharge Summary Discharge Rx Participant: No New Discharge Prescriptions: New Ipratropium-Albuterol Nebulize [Duoneb 0.5 mg-3 mg/3 ml Soln] 3 ml INHALATION RT-QID #1 each predniSONE 10 mg PO DIRECTED #40 tab Levothyroxine Sodium [Synthroid] 125 mcg PO DAILY@0630 #30 tab Continue Atorvastatin [Lipitor] 20 mg PO HS Albuterol Sulfate [Ventolin HFA] 1 - 2 puff INHALATION RT-Q6H PRN PRN Reason: Shortness Of Breath FLUoxetine HCL [PROzac] 40 mg PO DAILY Spironolactone [Aldactone] 25 mg PO DAILY Budesonide/Formoterol Fumarate [Symbicort 160-4.5 Mcg Inhaler] 1 puff INHALATION RT-BID Apixaban [Eliquis] 5 mg PO BID Omeprazole 20 mg PO DAILY Diltiazem Cd [Cardizem CD] 120 mg PO DAILY #90 cap Acetaminophen Tab [Tylenol] 650 mg PO Q6HR PRN tab PRN Reason: Mild Pain Or Fever > 100.5 Metoprolol Succinate (ER) [Toprol XL] 100 mg PO BID Losartan Potassium [Cozaar] 100 mg PO DAILY Potassium Chloride ER [K-Dur 10] 10 meq PO DAILY #30 tab Furosemide [Lasix] 40 mg PO BID #60 tab MDD 2 Discontinued Levothyroxine Sodium [Synthroid] 137 mcg PO DAILY Discharge Medication List Apixaban [Eliquis] 5 mg PO BID 10/01/21 [History] Atorvastatin [Lipitor] 20 mg PO HS 10/01/21 [History] Omeprazole 20 mg PO DAILY 10/01/21 [History] Acetaminophen Tab [Tylenol] 650 mg PO Q6HR PRN tab 09/14/22 [Rx] Diltiazem Cd [Cardizem CD] 120 mg PO DAILY #90 cap 09/14/22 [Rx] Albuterol Sulfate [Ventolin HFA] 1 - 2 puff INHALATION RT-Q6H PRN 11/01/22 [History] FLUoxetine HCL [PROzac] 40 mg PO DAILY 11/01/22 [History] Losartan Potassium [Cozaar] 100 mg PO DAILY 11/01/22 [History] Metoprolol Succinate (ER) [Toprol XL] 100 mg PO BID 11/01/22 [History] Spironolactone [Aldactone] 25 mg PO DAILY 11/01/22 [History] Budesonide/Formoterol Fumarate [Symbicort 160-4.5 Mcg Inhaler] 1 puff INHALATION RT-BID 02/22/23 [History] Furosemide [Lasix] 40 mg PO BID #60 tab MDD 2 02/24/23 [Rx] Ipratropium-Albuterol Nebulize [Duoneb 0.5 mg-3 mg/3 ml Soln] 3 ml INHALATION RT-QID #1 each 02/24/23 [Rx] Levothyroxine Sodium [Synthroid] 125 mcg PO DAILY@0630 #30 tab 02/24/23 [Rx] Potassium Chloride ER [K-Dur 10] 10 meq PO DAILY #30 tab 02/24/23 [Rx] predniSONE 10 mg PO DIRECTED #40 tab 02/24/23 [Rx] Follow up Appointment(s)/Referral(s): Jaxson Sharp MD [STAFF PHYSICIAN] - 1 Week Tarsha Berg DO [Primary Care Provider] - 1-2 days Asael Mario MD [STAFF PHYSICIAN] - 03/01/23 11:15 am Activity/Diet/Wound Care/Special Instructions: Heart healthy diet Activity is restricted till you see your doctor Discharge Disposition: HOME SELF-CARE
[2023-02-25] MEDS ORDERED: LEVOTHYROXINE 125 MCG TAB PO SCH (06:30)
== END 2023-02-24 13:23 | disposition home or self-care (01) | DRG 291 ==
LOC: EC 18:19 → 4SSUR 22:07
PROVIDERS: ADMIT Hospitalist; ATTEND Hospitalist
DX: I11.0 Hypertensive heart disease with heart failure (principal); I50.33 Acute on chronic diastolic (congestive) heart failure; J96.21 Acute and chronic respiratory failure with hypoxia; Z68.43 Body mass index [BMI] 50.0-59.9, adult; I25.10 Atherosclerotic heart disease of native coronary artery without angina pectoris; Z60.2 Problems related to living alone; E03.9 Hypothyroidism, unspecified; I48.0 Paroxysmal atrial fibrillation; Z79.01 Long term (current) use of anticoagulants; Z90.12 Acquired absence of left breast and nipple; Z85.3 Personal history of malignant neoplasm of breast; Z92.21 Personal history of antineoplastic chemotherapy; Z92.3 Personal history of irradiation; F41.0 Panic disorder [episodic paroxysmal anxiety]; F32.A Depression, unspecified; Z71.6 Tobacco abuse counseling; F17.210 Nicotine dependence, cigarettes, uncomplicated; G47.33 Obstructive sleep apnea (adult) (pediatric); Z99.81 Dependence on supplemental oxygen; E66.9 Obesity, unspecified; Z28.21 Immunization not carried out because of patient refusal; Z71.3 Dietary counseling and surveillance; Z28.311 Partially vaccinated for COVID-19; Z87.442 Personal history of urinary calculi; Z79.51 Long term (current) use of inhaled steroids; Z79.890 Hormone replacement therapy; Z79.899 Other long term (current) drug therapy; Z88.5 Allergy status to narcotic agent; Z88.0 Allergy status to penicillin
CPT/HCPCS: 36415; 71045; 80048; 80053; 83605; 83735; 83880; 84439; 84443; 84484; 85025; 85610; 85730; 93005; 93306; 94640; 94660; 94760; 96361; 96374; 96375; 99285

== ENCOUNTER 2023-05-23 16:36 | Observation (INO) | payer OTHER ==
[2023-05-23 17:39] LABS: Anisocytosis Moderate; Basophils % (A) 0 %; Eosinophils # (A) 0.3 k/uL (0-0.7); Eosinophils % (A) 2 %; HCT 41.9 % (34.0-46.0); HGB 12.6 gm/dL (11.4-16.0); Hypochromasia Marked; Lymphocytes # (A) 1.2 k/uL (1.0-4.8); Lymphocytes % (A) 10 %; MCH 30.4 pg (25.0-35.0); MCHC 30.1 g/dL (31.0-37.0); MCV 100.7 fL (80.0-100.0); Macrocytosis Moderate; Mean Platelet Volume 7.6; Monocytes # (A) 0.7 k/uL (0-1.0); Monocytes % (A) 6 %; Neutrophils # (A) 9.2 k/uL (1.3-7.7); Neutrophils % (A) 80 %; Platelet Count 349 k/uL (150-450); RBC 4.16 m/uL (3.80-5.40); RDW 20.8 % (11.5-15.5); WBC 11.5 k/uL (3.8-10.6)
[2023-05-23 17:52] LABS: ALT 38 U/L (4-34); AST 35 U/L (14-36); African American GFR (CKD) 75 (>60 ml/min/1.73 sqM); Albumin 3.9 g/dL (3.5-5.0); Alkaline Phosphatase 118 U/L (38-126); Anion Gap 7 mmol/L; Blood Urea Nitrogen 18 mg/dL (7-17); Calcium 8.8 mg/dL (8.4-10.2); Carbon Dioxide 29 mmol/L (22-30); Chloride 103 mmol/L (98-107); Glucose 113 mg/dL (74-99); Lipase 137 U/L (23-300); Magnesium 1.8 mg/dL (1.6-2.3); Non-African American GFR(CKD) 65 (>60 ml/min/1.73 sqM); Potassium 4.4 mmol/L (3.5-5.1); Sodium 139 mmol/L (137-145); Total Bilirubin 0.6 mg/dL (0.2-1.3); Total Protein 6.9 g/dL (6.3-8.2)
[2023-05-23 17:56] LABS: Partial Thromboplastin Time 24.7 sec (22.0-30.0); Prothrombin Time 10.5 sec (9.0-12.0)
[2023-05-23] MEDS ORDERED: DEXAMETHASONE SOD PHOSPHATE 10 MG/ML 1 ML VIAL IVP STA (17:57)
[2023-05-23] MEDS ORDERED: IPRATROPIUM 0.5 MG/2.5 ML NEBU INHALATION STA (17:57)
[2023-05-23] MEDS ORDERED: ALBUTEROL NEBULIZED 2.5 MG/3 ML INHALATION STA (17:57)
[2023-05-23] MEDS ORDERED: FUROSEMIDE 10 MG/ML 4 ML VIAL IV STA (17:58)
[2023-05-23] MEDS ORDERED: MAG HYDROX/AL HYDROX/SIMETH 30 ML, HYOSCYAMINE ELIXIR 10 ML, LIDOCAINE 2% GLYDO JELLY 1... PO STA ×3 (18:00)
[2023-05-23 18:01] LABS: NT-Pro-B-Type Natriuretic Pept 1140 pg/mL
[2023-05-23] MEDS ORDERED: HYDROmorphone 0.5 MG/0.5 ML SYRINGE IVP STA (18:32)
--- NOTE | 2023-05-23 19:35 | XR ---
EXAMINATION TYPE: XR chest 2V DATE OF EXAM: 05/23/2023 7:28 PM COMPARISON: Chest radiographs from 02/24/2023 TECHNIQUE: XR chest 2V Frontal and lateral views of the chest. CLINICAL INDICATION:Female, 62 years old with history of CP; FINDINGS: Lungs/Pleura: There is no evidence of pleural effusion, focal consolidation, or pneumothorax. Pulmonary vascularity: Unremarkable. Heart/mediastinum: Cardiomediastinal silhouette is enlarged and stable. Musculoskeletal: No acute osseous pathology. IMPRESSION: Low lung volumes with a generalized hazy appearance which could represent atelectasis versus pulmonar y edema correlate with serum BNP.
[2023-05-23] MEDS ORDERED: NALOXONE 0.4 MG/ML 1 ML VIAL IV PRN (23:12)
--- NOTE | 2023-05-23 23:20 | ED ---
General Adult HPI - General Chief complaint: Shortness of Breath Stated complaint: SOB, chest back pain Time Seen by Provider: 05/23/23 17:07 Source: patient Mode of arrival: ambulatory Limitations: no limitations - History of Present Illness Initial comments: This is a 62-year-old female with an extensive past medical history including COPD, congestive heart failure, hypertension presented to the emergency department for increasing shortness of breath. The patient stated that she has had increasing exertional dyspnea over the last several days worsening today. The patient did state that she was at the hospital getting labs for her iron studies when she decided to come into the emergency department finally for her shortness of breath. The patient stated that she is on her home dose of oxygen and has not needed any increasing at home. The patient did state that the shortness of breath is worsening however. He denied any fevers or chills and denied any chest pain. The patient was slightly to On my evaluation but did not appear in any acute distress. - Related Data Home Medications Medication Instructions Recorded Confirmed Apixaban [Eliquis] 5 mg PO BID 10/01/21 05/23/23 Atorvastatin [Lipitor] 20 mg PO HS 10/01/21 05/23/23 Omeprazole 20 mg PO DAILY 10/01/21 05/23/23 Albuterol Sulfate [Ventolin HFA] 1 - 2 puff INHALATION RT-Q6H PRN 11/01/22 05/23/23 FLUoxetine HCL [PROzac] 40 mg PO HS 11/01/22 05/23/23 Losartan Potassium [Cozaar] 100 mg PO DAILY 11/01/22 05/23/23 Metoprolol Succinate (ER) [Toprol 50 mg PO BID 11/01/22 05/23/23 XL] Spironolactone [Aldactone] 25 mg PO DAILY 11/01/22 05/23/23 Budesonide/Formoterol Fumarate 1 puff INHALATION RT-BID 02/22/23 05/23/23 [Symbicort 160-4.5 Mcg Inhaler] Famotidine [Pepcid] 20 mg PO DAILY 05/23/23 05/23/23 Levothyroxine Sodium [Synthroid] 137 mcg PO DAILY 05/23/23 05/23/23 Previous Rx's Medication Instructions Recorded Acetaminophen Tab [Tylenol] 650 mg PO Q6HR PRN tab 09/14/22 Diltiazem Cd [Cardizem CD] 120 mg PO DAILY #90 cap 09/14/22 Furosemide [Lasix] 40 mg PO BID #60 tab 02/24/23 Ipratropium-Albuterol Nebulize 3 ml INHALATION RT-QID #1 each 02/24/23 [Duoneb 0.5 mg-3 mg/3 ml Soln] Potassium Chloride ER [K-Dur 10] 10 meq PO DAILY #30 tab 02/24/23 Allergies Allergy/AdvReac Type Severity Reaction Status Date / Time morphine Allergy Anaphylaxis Verified 05/23/23 17:42 Penicillins AdvReac Nausea & Verified 05/23/23 17:42 Vomiting Review of Systems ROS Statement: Those systems with pertinent positive or pertinent negative responses have been documented in the HPI. ROS Other: All systems not noted in ROS Statement are negative. Past Medical History Past Medical History: Atrial Fibrillation, Heart Failure, COPD, Hypertension, Thyroid Disorder Additional Past Medical History / Comment(s): O2 use 24hrs per day, 3L/NC during the day, 6L at night. Hx left breast cancer 4 yrs ago treated with Chemo/Radiation and partial Mastectomy. NO BLOOD PRESSURES/LAB DRAWS ON LEFT ARM. Hx kidney stones. Hx kidney failure after Hysterectomy, no problems since. History of Any Multi-Drug Resistant Organisms: None Reported Past Surgical History: Cholecystectomy, Hysterectomy Additional Past Surgical History / Comment(s): Left partial mastectomy and lymph nodes removed, D&C's, Radioactive Iodine Treatment for Thyroid. Past Anesthesia/Blood Transfusion Reactions: Postoperative Nausea & Vomiting (PONV) Past Psychological History: Anxiety, Depression Smoking Status: Current some day smoker Past Alcohol Use History: None Reported Past Drug Use History: None Reported - Past Family History Mother Family Medical History: Cancer Father Family Medical History: Cancer Brother(s) Family Medical History: Cancer Son(s) Family Medical History: Deep Vein Thrombosis (DVT), Pulmonary Embolus General Exam Limitations: no limitations General appearance: alert, in no apparent distress, obese Head exam: Present: atraumatic, normocephalic, normal inspection Eye exam: Present: normal appearance, PERRL Pupils: Present: normal accommodation ENT exam: Present: normal exam, normal oropharynx, mucous membranes moist Neck exam: Present: normal inspection, full ROM Respiratory exam: Present: wheezes, decreased breath sounds Cardiovascular Exam: Present: tachycardia, irregular rhythm GI/Abdominal exam: Present: soft, normal bowel sounds Extremities exam: Present: normal inspection, full ROM Back exam: Present: normal inspection, full ROM Neurological exam: Present: alert, oriented X3, CN II-XII intact Psychiatric exam: Present: normal affect, normal mood Skin exam: Present: warm, dry Course Vital Signs 05/23/23 05/23/23 05/23/23 16:58 17:21 17:34 Temperature 98.5 F Pulse Rate 124 H 102 H Respiratory 24 20 24 Rate Blood Pressure 148/72 119/99 O2 Sat by Pulse 96 98 Oximetry 05/23/23 05/23/23 05/23/23 19:44 20:31 20:50 Temperature Pulse Rate 105 H 115 H 122 H Respiratory 20 Rate Blood Pressure 125/104 O2 Sat by Pulse 97 Oximetry 05/23/23 20:51 Temperature Pulse Rate Respiratory 20 Rate Blood Pressure O2 Sat by Pulse Oximetry EKG Findings - EKG Comments: EKG Findings:: An EKG was obtained and was interpreted by myself showing a rate of 109, QR protestant of 80, QTC of 381. This EKG showed an atrial fibrillation with RVR consistent with the patient's history of consistent atrial fibrillation. There was however no ST segment elevation or depression noted. Medical Decision Making - Medical Decision Making Was pt. sent in by a medical professional or institution (ANGUS [facility]leson, OPHTHALMIC MEDICAL TECHNOLOGIST, urgent care, hospital, or fpc...) When possible be specific @ -No Did you speak to anyone other than the patient for history (EMS, parent, family, police, friend...)? What history was obtained from this source @ -No Did you review nursing and triage notes (agree or disagree)? Why? @ -I reviewed and agree with nursing and triage notes Were old charts reviewed (outside hosp., previous admission, EMS record, old EKG, old radiological studies, urgent care reports/EKG's, fpc records)? Report findings @ -No old charts were reviewed Differential Diagnosis (chest pain, altered mental status, abdominal pain women, abdominal pain men, vaginal bleeding, weakness, fever, dyspnea, syncope, headache, dizziness, GI bleed, back pain, seizure, CVA, palpatations, mental health)? @ -COPD exacerbation, CHF exacerbation, pneumonia, pneumothorax EKG interpreted by me (3pts min.). @ -As above X-rays interpreted by me (1pt min.). @ -Chest x-ray was obtained and was interpreted by myself showing low lung volumes with a generalized hazy appearance which could represent atelectasis versus pulmonary edema. CT interpreted by me (1pt min.). @ -None done U/S interpreted by me (1pt. min.). @ -None done What testing was considered but not performed or refused? (CT, X-rays, U/S, labs)? Why? @ -None What meds were considered but not given or refused? Why? @ -None Did you discuss the management of the patient with other professionals (professionals i.e. , PA, OPHTHALMIC MEDICAL TECHNOLOGIST, lab, RT, psych nurse, social security assessor, sr. manager, teacher, legal compliance officer, case management director)? Give summary @ -Yes, admitting physician was contacted regarding patient admission. Was smoking cessation discussed for >3mins.? @ -Yes, I have spoken with the patient regarding smoking cessation. This discussion about options regarding how to quit smoking, and I spent 5 minutes discussing this with the patient. I have had [id number] discussion with the patient regarding the above. Was critical care preformed (if so, how long)? @ -No Were there social determinants of health that impacted care today? How? (Homelessness, low income, unemployed, alcoholism, drug addiction, transportation, low edu. Level, literacy, decrease access to med. care, penitentiary, rehab)? @ -No Was there de-escalation of care discussed even if they declined (Discuss DNR or withdrawal of care, Hospice)? DNR status @ -No What co-morbidities impacted this encounter? (DM, HTN, Smoking, COPD, CAD, Cancer, CVA, ARF, Chemo, Hep., AIDS, mental health diagnosis, sleep apnea, morbid obesity)? @ -Hypertension, congestive heart failure, COPD Was patient admitted / discharged? Hospital course, mention meds given and route, prescriptions, significant lab abnormalities, going to OR and other pertinent info. @ -The patient was seen and evaluated emergency department. Physical exam, the patient was resting in bed without any acute distress however was mildly tachypneic. Vital signs admission showed tachycardia and irregular rhythm secondary to the patient's history of chronic atrial fibrillation. The patient was on her home dose of oxygen. Due to the patient's complaints, laboratory workup as well as an x-ray and EKG was obtained. Laboratory workup was large w ith a number limits and showed a mild elevation of the proBNP. The patient had a level lower than her baseline however. Chest x-ray showed recent lung volume and on evaluation had decreased air entry bilaterally. The patient was given a breathing treatment of 10 mg of albuterol and 1 mg of Atrovent. The patient was given Decadron as well as Lasix. On reevaluation, the patient had significant improvement to her pain as well as breathing status. The patient did have increased air movement and was likely suffering from a COPD exacerbation as a cause of her symptoms. The patient will be placed observation for continued management and evaluation and she was agreeable with this plan. The patient was placed observation in stable condition. Undiagnosed new problem with uncertain prognosis? @ -No Drug Therapy requiring intensive monitoring for toxicity (Heparin, Nitro, Insulin, Cardizem)? @ -No Were any procedures done? @ -No Diagnosis/symptom? @ -COPD exacerbation Acute, or Chronic, or Acute on Chronic? @ -Acute Uncomplicated (without systemic symptoms) or Complicated (systemic symptoms)? @ -Complicated Side effects of treatment? @ -No Exacerbation, Progression, or Severe Exacerbation? @ -Exacerbation Poses a threat to life or bodily function? How? (Chest pain, [place], [place], pneumonia, PE, COPD, DKA, ARF, appy, cholecystitis, CVA, Diverticulitis, Homicidal, Encinas icidal, threat to staff... and all critical care pts) @ -Yes, worsening exacerbation can lead to increased hypoxia, CO2 narcosis and possible . - Lab Data Result diagrams: 05/23/23 17:25 05/23/23 17:25 Lab Results 05/23/23 05/23/23 05/23/23 Range/Units 17:25 17:25 17:25 WBC 11.5 H (3.8-10.6) k/uL RBC 4.16 (3.80-5.40) m/uL Hgb 12.6 (11.4-16.0) gm/dL Hct 41.9 (34.0-46.0) % MCV 100.7 H (80.0-100.0) fL MCH 30.4 (25.0-35.0) pg MCHC 30.1 L (31.0-37.0) g/dL RDW 20.8 H (11.5-15.5) % Plt Count 349 (150-450) k/uL MPV 7.6 Neutrophils % 80 % Lymphocytes % 10 % Monocytes % 6 % Eosinophils % 2 % Basophils % 0 % Neutrophils # 9.2 H (1.3-7.7) k/uL Lymphocytes # 1.2 (1.0-4.8) k/uL Monocytes # 0.7 (0-1.0) k/uL Eosinophils # 0.3 (0-0.7) k/uL Basophils # 0.0 (0-0.2) k/uL Hypochromasia Marked Anisocytosis Moderate Macrocytosis Moderate PT 10.5 (9.0-12.0) sec INR 1.0 (<1.2) APTT 24.7 (22.0-30.0) sec Sodium 139 (137-145) mmol/L Potassium 4.4 (3.5-5.1) mmol/L Chloride 103 (98-107) mmol/L Carbon Dioxide 29 (22-30) mmol/L Anion Gap 7 mmol/L BUN 18 H (7-17) mg/dL Creatinine 0.94 (0.52-1.04) mg/dL Est GFR (CKD-EPI)AfAm 75 (>60 ml/min/1.73 sqM) Est GFR (CKD-EPI)NonAf 65 (>60 ml/min/1.73 sqM) Glucose 113 H (74-99) mg/dL Calcium 8.8 (8.4-10.2) mg/dL Magnesium 1.8 (1.6-2.3) mg/dL Total Bilirubin 0.6 (0.2-1.3) mg/dL AST 35 (14-36) U/L ALT 38 H (4-34) U/L Alkaline Phosphatase 118 (38-126) U/L Troponin I (0.000-0.034) ng/mL NT-Pro-B Natriuret Pep 1140 pg/mL Total Protein 6.9 (6.3-8.2) g/dL Albumin 3.9 (3.5-5.0) g/dL Lipase 137 (23-300) U/L 05/23/23 Range/Units 17:25 WBC (3.8-10.6) k/uL RBC (3.80-5.40) m/uL Hgb (11.4-16.0) gm/dL Hct (34.0-46.0) % MCV (80.0-100.0) fL MCH (25.0-35.0) pg MCHC (31.0-37.0) g/dL RDW (11.5-15.5) % Plt Count (150-450) k/uL MPV Neutrophils % % Lymphocytes % % Monocytes % % Eosinophils % % Basophils % % Neutrophils # (1.3-7.7) k/uL Lymphocytes # (1.0-4.8) k/uL Monocytes # (0-1.0) k/uL Eosinophils # (0-0.7) k/uL Basophils # (0-0.2) k/uL Hypochromasia Anisocytosis Macrocytosis PT (9.0-12.0) sec INR (<1.2) APTT (22.0-30.0) sec Sodium (137-145) mmol/L Potassium (3.5-5.1) mmol/L Chloride (98-107) mmol/L Carbon Dioxide (22-30) mmol/L Anion Gap mmol/L BUN (7-17) mg/dL Creatinine (0.52-1.04) mg/dL Est GFR (CKD-EPI)AfAm (>60 ml/min/1.73 sqM) Est GFR (CKD-EPI)NonAf (>60 ml/min/1.73 sqM) Glucose (74-99) mg/dL Calcium (8.4-10.2) mg/dL Magnesium (1.6-2.3) mg/dL Total Bilirubin (0.2-1.3) mg/dL AST (14-36) U/L ALT (4-34) U/L Alkaline Phosphatase (38-126) U/L Troponin I <0.012 (0.000-0.034) ng/mL NT-Pro-B Natriuret Pep pg/mL Total Protein (6.3-8.2) g/dL Albumin (3.5-5.0) g/dL Lipase (23-300) U/L Disposition Clinical Impression: COPD exacerbation, CHF (congestive heart failure), Nicotine dependence Disposition: ADMITTED IP TO THIS HOSP Condition: Stable Is patient prescribed a controlled substance at d/c from ED?: No Referrals: Pancho Berg DO [Primary Care Provider] - 1-2 days Time of Disposition: 21:00 Decision to Admit Reason: Admit from EC Decision Date: 05/23/23 Decision Time: 21:00
[2023-05-23] MEDS: HYDROcodone/APAP 5-325MG 1 EACH TAB PO PRN (23:43)
[2023-05-24] MEDS: IPRATROPIUM-ALBUTEROL 3 ML NEB INHALATION SCH ×4 (00:56→12:30)
[2023-05-24] MEDS: HYDROcodone/APAP 5-325MG 1 EACH TAB PO PRN ×3 (03:51→12:27)
[2023-05-24 08:09] VITALS: BP 162/83; RESP 24; TEMP 98.1
[2023-05-24] MEDS ORDERED: ALBUTEROL NEBULIZED 2.5 MG/3 ML INHALATION PRN (08:13)
[2023-05-24] MEDS ORDERED: ACETAMINOPHEN TAB 325 MG TAB PO PRN (08:13)
[2023-05-24] MEDS ORDERED: APIXABAN 5 MG TAB PO SCH (09:00)
[2023-05-24] MEDS ORDERED: PANTOPRAZOLE 40 MG TABLET PO SCH (09:00)
[2023-05-24] MEDS ORDERED: DILTIAZEM CD 120 MG CAP.ER.24H PO SCH (09:00)
[2023-05-24] MEDS ORDERED: FUROSEMIDE 40 MG TAB PO SCH (09:00)
[2023-05-24] MEDS ORDERED: SPIRONOLACTONE 25 MG TAB PO SCH (09:00)
[2023-05-24] MEDS ORDERED: LOSARTAN 50 MG TAB PO SCH (09:00)
[2023-05-24] MEDS ORDERED: LEVOTHYROXINE 137 MCG TAB PO SCH (09:00)
[2023-05-24] MEDS ORDERED: POTASSIUM CHLORIDE ER 10 MEQ TAB.ER.PRT PO SCH (09:00)
[2023-05-24] MEDS ORDERED: METOPROLOL SUCCINATE (ER) 50 MG TAB.ER.24H PO SCH (09:00)
[2023-05-24] MEDS ORDERED: FAMOTIDINE 20 MG TAB PO SCH (09:00)
[2023-05-24] MEDS ORDERED: METOPROLOL TARTRATE 50 MG TAB PO STA (12:21)
--- NOTE | 2023-05-24 12:23 | P.DS ---
Providers Date of admission: 05/23/23 23:13 Attending physician: Shubham Joshi MD Primary care physician: Pancho Rader [facility] Course: Patient is a pleasant 62-year-old female with BMI of 56 and history of COPD continues to smoke came in with compensative shortness of breath found to be in COPD exacerbation and was started on systemic steroids subsequently admitted. Patient is not wheezing today. Patient usually uses 3-6 L of oxygen presently on 2 L of May and saturating well. Patient chest x-ray did not show any pneumonia patient denied any significant cough with sputum production REVIEW OF SYSTEMS: CONSTITUTIONAL: No fever, no malaise, no fatigue. HEENT: No recent visual problems or hearing problems. Denied any sore throat. CARDIOVASCULAR: No chest pain, orthopnea, PND, no palpitations, no syncope. PULMONARY: As mentioned in HPI GASTROINTESTINAL: No diarrhea, no nausea, no vomiting, no abdominal pain. NEUROLOGICAL: No headaches, no weakness, no numbness. HEMATOLOGICAL: Denies any bleeding or petechiae. GENITOURINARY: Denies any burning micturition, frequency, or urgency. MUSCULOSKELETAL/RHEUMATOLOGICAL: Denies any joint pain, swelling, or any muscle pain. ENDOCRINE: Denies any polyuria or polydipsia. The rest of the 14-point review of systems is negative. PHYSICAL EXAMINATION: GENERAL: The patient is alert and oriented x3, not in any acute distress. Morbidly obese HEENT: Pupils are round and equally reacting to light. EOMI. No scleral icterus. No conjunctival pallor. Normocephalic, atraumatic. No pharyngeal erythema. No thyromegaly. CARDIOVASCULAR: S1 and S2 present. No murmurs, rubs, or gallops. Tachycardic irregularly irregular rhythm PULMONARY: Chest is clear to auscultation, no wheezing or crackles. ABDOMEN: Soft, nontender, nondistended, normoactive bowel sounds. No palpable organomegaly. MUSCULOSKELETAL: No joint swelling or deformity. EXTREMITIES: No cyanosis, clubbing, or pedal edema. NEUROLOGICAL: Gross neurological examination did not reveal any focal deficits. SKIN: No rashes. Assessment and plan -Acute on chronic hypoxic and hypercapnic respiratory failure secondary to COPD exacerbation: Patient will be discharged on weaning dose of steroids patient has significant improvement since yesterday -Leukocytosis secondary to COPD -Atrial fibrillation chronic A. fib presently mildly rapid ventricular rate will be given additional dose of metoprolol and we will increase the dose of metoprolol to 75 sustained release twice a day from 50 mg sustained release twice a day, patient will continue anticoagulation -Documented history of heart failure unknown whether patient has systolic or diastolic dysfunction patient is presently euvolemic and the not in heart failure exacerbation -Hypertension -Hypothyroidism -Continued nicotine use: Counseling was provided Patient will be discharged today Patient Condition at Discharge: Stable Plan - Discharge Summary Discharge Rx Participant: No New Discharge Prescriptions: New Metoprolol Succinate (ER) [Toprol XL] 25 mg PO BID #30 tab predniSONE 10 mg PO DAILY #30 tab No Action Atorvastatin [Lipitor] 20 mg PO HS Albuterol Sulfate [Ventolin HFA] 1 - 2 puff INHALATION RT-Q6H PRN PRN Reason: Shortness Of Breath FLUoxetine HCL [PROzac] 40 mg PO HS Spironolactone [Aldactone] 25 mg PO DAILY Budesonide/Formoterol Fumarate [Symbicort 160-4.5 Mcg Inhaler] 1 puff INHALATION RT-BID Apixaban [Eliquis] 5 mg PO BID Omeprazole 20 mg PO DAILY Diltiazem Cd [Cardizem CD] 120 mg PO DAILY #90 cap Acetaminophen Tab [Tylenol] 650 mg PO Q6HR PRN tab PRN Reason: Mild Pain Or Fever > 100.5 Metoprolol Succinate (ER) [Toprol XL] 50 mg PO BID Losartan Potassium [Cozaar] 100 mg PO DAILY Ipratropium-Albuterol Nebulize [Duoneb 0.5 mg-3 mg/3 ml Soln] 3 ml INHALATION RT-QID #1 each Potassium Chloride ER [K-Dur 10] 10 meq PO DAILY #30 tab Furosemide [Lasix] 40 mg PO BID #60 tab Famotidine [Pepcid] 20 mg PO DAILY Levothyroxine Sodium [Synthroid] 137 mcg PO DAILY Discharge Medication List Apixaban [Eliquis] 5 mg PO BID 10/01/21 [History] Atorvastatin [Lipitor] 20 mg PO HS 10/01/21 [History] Omeprazole 20 mg PO DAILY 10/01/21 [History] Acetaminophen Tab [Tylenol] 650 mg PO Q6HR PRN tab 09/14/22 [Rx] Diltiazem Cd [Cardizem CD] 120 mg PO DAILY #90 cap 09/14/22 [Rx] Albuterol Sulfate [Ventolin HFA] 1 - 2 puff INHALATION RT-Q6H PRN 11/01/22 [History] FLUoxetine HCL [PROzac] 40 mg PO HS 11/01/22 [History] Losartan Potassium [Cozaar] 100 mg PO DAILY 11/01/22 [History] Metoprolol Succinate (ER) [Toprol XL] 50 mg PO BID 11/01/22 [History] Spironolactone [Aldactone] 25 mg PO DAILY 11/01/22 [History] Budesonide/Formoterol Fumarate [Symbicort 160-4.5 Mcg Inhaler] 1 puff INHALATION RT-BID 02/22/23 [History] Furosemide [Lasix] 40 mg PO BID #60 tab 02/24/23 [Rx] Ipratropium-Albuterol Nebulize [Duoneb 0.5 mg-3 mg/3 ml Soln] 3 ml INHALATION RT-QID #1 each 02/24/23 [Rx] Potassium Chloride ER [K-Dur 10] 10 meq PO DAILY #30 tab 02/24/23 [Rx] Famotidine [Pepcid] 20 mg PO DAILY 05/23/23 [History] Levothyroxine Sodium [Synthroid] 137 mcg PO DAILY 05/23/23 [History] Metoprolol Succinate (ER) [Toprol XL] 25 mg PO BID #30 tab 05/24/23 [Rx] predniSONE 10 mg PO DAILY #30 tab 05/24/23 [Rx] Follow up Appointment(s)/Referral(s): Pancho Berg DO [Primary Care Provider] - 3 Days
--- NOTE | 2023-05-24 12:23 | P.HPIM ---
History of Present Illness Patient is a pleasant 62-year-old female with BMI of 56 and history of COPD continues to smoke came in with compensative shortness of breath found to be in COPD exacerbation and was started on systemic steroids subsequently admitted. Patient is not wheezing today. Patient usually uses 3-6 L of oxygen presently on 2 L of May and saturating well. Patient chest x-ray did not show any pneumonia patient denied any significant cough with sputum production REVIEW OF SYSTEMS: CONSTITUTIONAL: No fever, no malaise, no fatigue. HEENT: No recent visual problems or hearing problems. Denied any sore throat. CARDIOVASCULAR: No chest pain, orthopnea, PND, no palpitations, no syncope. PULMONARY: As mentioned in HPI GASTROINTESTINAL: No diarrhea, no nausea, no vomiting, no abdominal pain. NEUROLOGICAL: No headaches, no weakness, no numbness. HEMATOLOGICAL: Denies any bleeding or petechiae. GENITOURINARY: Denies any burning micturition, frequency, or urgency. MUSCULOSKELETAL/RHEUMATOLOGICAL: Denies any joint pain, swelling, or any muscle pain. ENDOCRINE: Denies any polyuria or polydipsia. The rest of the 14-point review of systems is negative. PHYSICAL EXAMINATION: GENERAL: The patient is alert and oriented x3, not in any acute distress. Morbidly obese HEENT: Pupils are round and equally reacting to light. EOMI. No scleral icterus. No conjunctival pallor. Normocephalic, atraumatic. No pharyngeal erythema. No thyromegaly. CARDIOVASCULAR: S1 and S2 present. No murmurs, rubs, or gallops. Tachycardic irregularly irregular rhythm PULMONARY: Chest is clear to auscultation, no wheezing or crackles. ABDOMEN: Soft, nontender, nondistended, normoactive bowel sounds. No palpable organomegaly. MUSCULOSKELETAL: No joint swelling or deformity. EXTREMITIES: No cyanosis, clubbing, or pedal edema. NEUROLOGICAL: Gross neurological examination did not reveal any focal deficits. SKIN: No rashes. Assessment and plan -Acute on chronic hypoxic and hypercapnic respiratory failure secondary to COPD exacerbation: Patient will be discharged on weaning dose of steroids patient has significant improvement since yesterday -Leukocytosis secondary to COPD -Atrial fibrillation chronic A. fib presently mildly rapid ventricular rate will be given additional dose of metoprolol and we will increase the dose of metoprolol to 75 sustained release twice a day from 50 mg sustained release twice a day, patient will continue anticoagulation -Documented history of heart failure unknown whether patient has systolic or diastolic dysfunction patient is presently euvolemic and the not in heart failure exacerbation -Hypertension -Hypothyroidism -Continued nicotine use: Counseling was provided Patient will be discharged today Past Medical History Past Medical History: Atrial Fibrillation, Heart Failure, COPD, Hypertension, Thyroid Disorder Additional Past Medical History / Comment(s): O2 use 24hrs per day, 3L/NC during the day, 6L at night. Hx left breast cancer 4 yrs ago treated with Chemo/Radiation and partial Mastectomy. NO BLOOD PRESSURES/LAB DRAWS ON LEFT ARM. Hx kidney stones. Hx kidney failure after Hysterectomy, no problems si nce. History of Any Multi-Drug Resistant Organisms: None Reported Past Surgical History: Cholecystectomy, Hysterectomy Additional Past Surgical History / Comment(s): Left partial mastectomy and lymph nodes removed, D&C's, Radioactive Iodine Treatment for Thyroid. Past Anesthesia/Blood Transfusion Reactions: Postoperative Nausea & Vomiting (PONV) Past Psychological History: Anxiety, Depression Additional Psychological History / Comment(s): Panic attacks, night terrors Smoking Status: Current some day smoker Past Alcohol Use History: None Reported Additional Past Alcohol Use History / Comment(s): Quit smoking 3 weeks ago, smoked for 40 yrs, 1-09/01 ppd. Past Drug Use History: None Reported Additional Drug Use History / Comment(s): Uses Marijuana edibles. Aware no use 24 hrs prior to procedure. - Past Family History Mother Family Medical History: Cancer Father Family Medical History: Cancer Brother(s) Family Medical History: Cancer Son(s) Family Medical History: Deep Vein Thrombosis (DVT), Pulmonary Embolus Medications and Allergies Home Medications Medication Instructions Recorded Confirmed Type Apixaban [Eliquis] 5 mg PO BID 10/01/21 05/23/23 History Atorvastatin [Lipitor] 20 mg PO HS 10/01/21 05/23/23 History Omeprazole 20 mg PO DAILY 10/01/21 05/23/23 History Acetaminophen Tab [Tylenol] 650 mg PO Q6HR PRN tab 09/14/22 05/23/23 Rx Diltiazem Cd [Cardizem CD] 120 mg PO DAILY #90 cap 09/14/22 05/23/23 Rx Albuterol Sulfate [Ventolin HFA] 1 - 2 puff INHALATION RT-Q6H PRN 11/01/22 05/23/23 History FLUoxetine HCL [PROzac] 40 mg PO HS 11/01/22 05/23/23 History Losartan Potassium [Cozaar] 100 mg PO DAILY 11/01/22 05/23/23 History Metoprolol Succinate (ER) [Toprol 50 mg PO BID 11/01/22 05/23/23 History XL] Spironolactone [Aldactone] 25 mg PO DAILY 11/01/22 05/23/23 History Budesonide/Formoterol Fumarate 1 puff INHALATION RT-BID 02/22/23 05/23/23 History [Symbicort 160-4.5 Mcg Inhaler] Furosemide [Lasix] 40 mg PO BID #60 tab 02/24/23 05/23/23 Rx Ipratropium-Albuterol Nebulize 3 ml INHALATION RT-QID #1 each 02/24/23 05/23/23 Rx [Duoneb 0.5 mg-3 mg/3 ml Soln] Potassium Chloride ER [K-Dur 10] 10 meq PO DAILY #30 tab 02/24/23 05/23/23 Rx Famotidine [Pepcid] 20 mg PO DAILY 05/23/23 05/23/23 History Levothyroxine Sodium [Synthroid] 137 mcg PO DAILY 05/23/23 05/23/23 History Metoprolol Succinate (ER) [Toprol 25 mg PO BID #30 tab 05/24/23 Rx XL] predniSONE 10 mg PO DAILY #30 tab 05/24/23 Rx Allergies Allergy/AdvReac Type Severity Reaction Status Date / Time morphine Allergy Anaphylaxis Verified 05/23/23 17:42 Penicillins AdvReac Nausea & Verified 05/23/23 17:42 Vomiting Physical Exam Vitals: Vital Signs Temp Pulse Pulse Resp BP BP Pulse Ox 05/24/23 08:57 106 H 97 05/24/23 07:15 98.1 F 111 H 24 162/83 99 05/24/23 04:43 105 H 05/24/23 04:31 101 H 05/24/23 01:06 107 H 05/24/23 00:56 110 H 05/24/23 00:47 98.0 F 116 H 18 153/92 98 05/23/23 23:19 142/90 05/23/23 20:51 20 05/23/23 20:50 122 H 20 125/104 97 05/23/23 20:31 115 H 05/23/23 19:44 105 H 05/23/23 17:34 24 05/23/23 17:21 102 H 20 119/99 98 05/23/23 16:58 98.5 F 124 H 24 148/72 96 Intake and Output 05/23/23 05/24/23 05/24/23 22:59 06:59 14:59 Other: Weight 154.221 kg 154.221 kg Results CBC & Chem 7: 05/23/23 17:25 05/23/23 17:25 Labs: Abnormal Lab Results - Last 24 Hours (Table) 05/23/23 05/23/23 Range/Units 17:25 17:25 WBC 11.5 H (3.8-10.6) k/uL MCV 100.7 H (80.0-100.0) fL MCHC 30.1 L (31.0-37.0) g/dL RDW 20.8 H (11.5-15.5) % Neutrophils # 9.2 H (1.3-7.7) k/uL BUN 18 H (7-17) mg/dL Glucose 113 H (74-99) mg/dL ALT 38 H (4-34) U/L Thrombosis Risk Factor Assmnt - Choose All That Apply Any of the Below Risk Factors Present?: Yes Each Factor Represents 1 point: Obesity (BMI >25) Each Risk Factor Represents 2 Points: Age 61-74 years Thrombosis Risk Factor Assessment Total Risk Factor Score: 3 Thrombosis Risk Factor Assessment Level: Moderate Risk
[2023-05-24 12:41] VITALS: PULSE 104
[2023-05-24] MEDS ORDERED: SYMBICORT 160-4.5 MCG INHALER INHALATION SCH (20:00)
[2023-05-24] MEDS ORDERED: ATORVASTATIN 20 MG TAB PO SCH (21:00)
[2023-05-24] MEDS ORDERED: FLUoxetine HCL 20 MG CAP PO SCH (21:00)
== END 2023-05-24 14:03 | disposition home or self-care (01) ==
LOC: EC 16:36 → 4SSUR 23:13
PROVIDERS: ADMIT Internal Medicine; ATTEND Internal Medicine
DX: J44.1 Chronic obstructive pulmonary disease with (acute) exacerbation (principal); J96.21 Acute and chronic respiratory failure with hypoxia; J96.22 Acute and chronic respiratory failure with hypercapnia; I48.20 Chronic atrial fibrillation, unspecified; I11.0 Hypertensive heart disease with heart failure; I50.9 Heart failure, unspecified; Z99.81 Dependence on supplemental oxygen; E03.9 Hypothyroidism, unspecified; F32.A Depression, unspecified; F41.0 Panic disorder [episodic paroxysmal anxiety]; F17.210 Nicotine dependence, cigarettes, uncomplicated; E66.9 Obesity, unspecified; Z68.43 Body mass index [BMI] 50.0-59.9, adult; Z71.6 Tobacco abuse counseling; Z79.51 Long term (current) use of inhaled steroids; Z79.01 Long term (current) use of anticoagulants; Z79.890 Hormone replacement therapy; Z79.899 Other long term (current) drug therapy; Z88.0 Allergy status to penicillin; Z88.5 Allergy status to narcotic agent; Z85.3 Personal history of malignant neoplasm of breast; Z92.21 Personal history of antineoplastic chemotherapy; Z92.3 Personal history of irradiation; Z87.442 Personal history of urinary calculi; Z90.12 Acquired absence of left breast and nipple; Z90.710 Acquired absence of both cervix and uterus; Z90.49 Acquired absence of other specified parts of digestive tract; Z98.890 Other specified postprocedural states; Z82.49 Family history of ischemic heart disease and other diseases of the circulatory system; Z80.9 Family history of malignant neoplasm, unspecified
CPT/HCPCS: 96374; 96375; 99285; 36415; 94640 ×3; 94760; 93005; 83880; 80053; 83690; 83735; 84484; 85025; 85610; 85730; 71046; G0378 ×2; J1100; J1940; J1170